=== PATIENT | female | born 1935 | race Caucasian/White ===

== ENCOUNTER → 2016-07-09 | Outpatient (CLI) | payer MEDICARE, OTHER ==
[~2016-07-09] MED LIST: AMLO5TAB OR; ASPI325T OR; CALCIUM PO; CORE20CA OR; LIPI80TA OR; MECL25TA2 OR; PLAV75TA2 OR; RANE1000 OR; VIT D PO; centrum PO; vitamin D PO
--- NOTE | 2016-07-09 09:13 | REP ---
MRI lumbosacral spine 07/09/2016 Indication lumbar vertebrae normal freshened fracture Comparison: Bone scan 05/23/2016 only Technique: Sagittal and axial T1 and T2-weighted images as well as STIR sagittal images and coronal localizer images were obtained of the lumbosacral spine without contrast. Findings: 60% compression fracture is noted of T12 with bone marrow edema best visualized within the STIR sagittal images. Mild residual marrow edema is noted in the L1 vertebral body consistent with a less recent/older fracture of 70% compression . T12-L1 small diffuse bulging disc and facet osteoarthritis bilaterally with mild thecal sac impression. L1-2: Small diffuse bulging disc ,facet joint osteoarthritis, and mild thecal sac compression L2-3: Moderate diffuse bulging disc , and facet osteoarthritis with significant thecal sac compression .AP dimension of thecal sac 5.6 mm. L3-4 significant disc space narrowing ,diffuse bulging disc/osteophyte complex. AP dimension of thecal sac 6.5 mm . There is left foraminal narrowing. L4-5: Small diffuse bulging disc/osteophyte complex. There is no significant spinal stenosis. There is facet osteoarthritis without compression of the exiting nerve roots L5 S1 small diffuse bulging disc/osteophyte complex. There is no spinal stenosis or compression of the exiting nerve roots in the neural foramina The conus medullaris terminates at L1-L2 There is mild lower thoracic levoscoliosis and moderate rotatory lumbar dextroscoliosis. Impression 1. Recent 60% compression fracture T12 with marrow edema and no significant retropulsion; 70% subacute to old compression fracture of L1 2. Moderate to significant spinal stenosis at L2-3, and , L3-4 contributed to by bulging discs and facet osteoarthritis. If there is any clinical concern for unstable fractures, then recommend CT of lumbosacral spine Signed by Tamika Sharp MD 07/09/2016 09:05 A
== END ==
LOC: M RAD 07:08
PROVIDERS: ATTEND Nurse Practitioner Family
DX: M48.54XA Collapsed vertebra, not elsewhere classified, thoracic region, initial encounter for fracture (principal); M48.06 Spinal stenosis, lumbar region; M51.26 Other intervertebral disc displacement, lumbar region; M47.816 Spondylosis without myelopathy or radiculopathy, lumbar region; X58.XXXA Exposure to other specified factors, initial encounter; Y93.9 Activity, unspecified; Y92.9 Unspecified place or not applicable; Y99.8 Other external cause status

== ENCOUNTER → 2016-07-28 | Outpatient (CLI) | payer MEDICARE, OTHER ==
[~2016-07-28] MED LIST changes: +BUPIVACAINE HCL 0.25% 30 ML VIAL As Ordered ONE; +ISOVUE-M 300 61% 15ML VIAL (Q9967) As Ordered ONE; +LIDOCAINE 1% SDV INJ 30 ML VIAL As Ordered ONE; +TRIAMCINOLONE ACETONIDE SUSP 40 MG/ML VIAL (J3301) As Ordered ONE; +diazePAM 5 MG TAB As Ordered ONE
--- NOTE | 2016-07-28 12:36 | REP ---
PARTIAL LUMBAR SPINE SERIES: Single view. HISTORY: Lumbar facet injection for pain. 10 seconds of fluoroscopy time is reported. FINDINGS: A single fluoroscopically obtained intraprocedural spot radiograph of the lumbar spine documents needle position and contrast injection associated with lumbar facet injection procedure. Signed by Renato Abernathy MD 07/28/2016 01:43 P
--- NOTE | 2016-07-30 23:56 | ECWPNPC ---
PATIENT NAME: PHYLLIS COOK : 1935 GENDER: FEMALE VISIT DATE: 07/28/2016 DISCHARGE DATE: 07/28/16 1207 VISIT LOCKED DATE TIME: PHYSICIAN: ALINA RICE RESOURCE: ALINA RICE REASON FOR APPOINTMENT 1. FACET BLOCK HISTORY OF PRESENT ILLNESS HISTORY OF PRESENT ILLNESS: PAIN THE PATIENT DESCRIBES THE PAIN... FALL RISK SCREENING: SCREENING :NO FALLS IN THE PAST YEAR CURRENT MEDICATIONS TAKING ASPIRIN 81 MG TABLET DELAYED RELEASE 1 TABLET NEEDED ORALLY DAILY, NOTES: 07-27-161899 TAKING COREG CR 20 MG CAPSULE EXTENDED RELEASE 24 HOUR 1 CAP(S) ORALLY DAILY, NOTES: 07-27-161899 TAKING LIPITOR 80 MG TABLET 1 TABLET ORALLY ONCE A DAY, NOTES: 07-27-161899 TAKING CALCIUM 600 + D 600-400 MG-UNIT TABLET 2 TABLET ORALLY BID, NOTES: 07-27-161899 TAKING VITAMIN D 1000 UNIT TABLET 1 TABLET ORALLY ONCE A DAY, NOTES: 07-27-161899 TAKING IMDUR 60 MG TABLET EXTENDED RELEASE 24 HOUR 1 TABLET ORALLY ONCE A DAY, NOTES: 07-27-162099 TAKING RANEXA 1000 MG TABLET EXTENDED RELEASE 12 HOUR 1 TABLET ORALLY TWICE A DAY, NOTES: 07-27-161899 TAKING PANTOPRAZOLE SODIUM 40 MG TABLET DELAYED RELEASE 1 TABLET ORALLY ONCE A DAY, NOTES: 07-27-161899 TAKING TYLENOL EXTRA STRENGTH 500 MG TABLET 1 TABLET NEEDED ORALLY EVERY 6 HRS, NOTES: NOT IN WHILE TAKING WALKER - MISCELLANEOUS DIRECTED FX L-1 FOLDING TAKING PHYSICAL THERAPY EVALUATE AND TREAT PHYSICAL THERAPY DIRECTED COMP FX L-1 1-3X/WEEK TAKING MIRALAX - PACKET 1 PACKET MIXED WITH 8 OUNCES OF FLUID ORALLY ONCE A DAY NEEDED TAKING TRANSFER BENCH - MISCELLANEOUS DIRECTED SHOWER CHAIR S32.010D TAKING ADJUST BATH/SHOWER SEAT - MISCELLANEOUS DIRECTED SHOWER SEAT S32.010D TAKING SPIRONOLACTONE 25 MG TABLET 1 TABLET ORALLY ONCE A DAY, NOTES: 07-27-16 07 TAKING LYRICA 75 MG CAPSULE 1 CAPSULE ORALLY TWICE A DAY MDD2, NOTES: 07-27-161899 TAKING NORCO 10-325 MG TABLET 1 TABLET NEEDED ORALLY EVERY 6 HRS PRN MDD4, NOTES: 07-28-16 0600 PAST MEDICAL HISTORY VITAMIN D DEFICIENCY ARTHRITIS ENVIRONMENTAL ALLERGIES HYPERTENSION HEART ATTACK, 2006 HX. OF VAIN ,PAPSMEAR ABNORMAL MAMMOGRAM, CAT 3 10/13 ALSO 04/14 OSTEOPENIA ELEVATED CHOLESTEROL RIGHT SHOULDER PROBLEM,2011 GASTRIC ULCER 06/23/2013 TORN ROTATOR CUFF, AFTER A FALL RECTOCELE ,WAS TREATED WITH A PESSARY BUT COULD NOT TOLERATE IT .TIED OA BLADDER MED ,TOO MANY SIDE EFFECTS RIGHT TORN BICEP ALLERGIES N.K.D.A. SOCIAL HISTORY GENERAL: TOBACCO USE ARE YOU A:NONSMOKER LEARNING BARRIERS / SPECIAL NEEDS ORIENTED TO PLAN OF CARE: PATIENT, PAIN MANAGEMENT PATIENT, ORIENTED TO PLAN OF CARE: PATIENT, PAIN MANAGEMENT PATIENT. NEW PATIENT PAIN DIARY TODAY'S VISITNOTES FROM 0-10, WHAT LEVEL IS YOUR PAIN TODAY?0 PAIN CLINIC PFS, CLERGY, PUBLIC HEALTH REFERRALS PFS REFERRAL NEEDED?NO CLERGY REFERRAL NEEDED?NO PUBLIC HEALTH REFERRAL NEEDED?NO WAS THE PROVIDER NOTIFIED OF ANY PERTINENT INFO?NO PFS REFERRAL NEEDED?NO CLERGY REFERRAL NEEDED?NO PUBLIC HEALTH REFERRAL NEEDED?NO WAS THE PROVIDER NOTIFIED OF ANY PERTINENT INFO?NO REVIEW OF SYSTEMS CONSTITUTIONAL: ANY CHANGE IN YOUR MEDICAL CONDITION? NO . CHILLS NO . FEVER NO . INFECTION: DO YOU HAVE NEW INFECTIONS? NO . DO YOU HAVE HISTORY OF MRSA? NO . MUSCULOSKELETAL: ANY NEW PATTERNS OF PAIN OR NUMBNESS? NO . GASTROENTEROLOGY: ANY NEW CHANGE IN BOWEL CONTROL? NO . GENITOURINARY: ANY NEW CHANGE IN BLADDER CONTROL? NO . IS THERE A CHANCE YOU COULD BE ? NO . HEMATOLOGY/LYMPH: DO YOU TAKE ANY BLOOD THINNERS? (FOR EXAMPLE- COUMADIN, PLAVIX, AGGRENOX, PLATEL, PRADAXA, OR XARELTO) NO . WHEN WAS YOUR LAST DOSE? DATE: TIME: . NEUROLOGY: HAVE YOU FALLEN IN THE PAST 6 MONTHS? NO . ANY NEW EXTREMITY NUMBNESS OR WEAKNESS? NO . CARDIOLOGY: DO YOU HAVE A PACEMAKER OR DEFIBRILLATOR? NO . RESPIRATORY: HAVE YOU BEEN SICK IN THE PAST WEEK? NO . FEVER NO . FLU LIKE SYMPTOMS? NO . COUGH NO . INTEGUMENTARY: DO YOU HAVE ANY RASHES OR OPEN SORES? NO . ALLERGIC/IMMUNO: ARE YOU ALLERGIC TO SHELLFISH OR IV DYE? NO . ANY NEW ALLERGIES? NO . PSYCHIATRIC: DO YOU HAVE THOUGHTS OF HURTING YOURSELF OR SOMEONE ELSE? NO . ARE YOU ABUSED, NEGLECTED, OR IN AN UNSAFE ENVIRONMENT? NO . ENDOCRINOLOGY: ARE YOU DIABETIC? NO . OTHER: DO YOU NEED ANY PRESCRIPTIONS? NO . IF YES, PLEASE LIST: ____ . ANY NEW PROBLEMS WITH YOUR MEDICATIONS? NO . WHEN DID YOU LAST EAT? 6PM 07-27-16 . WHEN DID YOU LAST DRINK? 6AM 07-28-16 . WHAT DID YOU LAST DRINK? WATER . NAME OF PERSON DRIVING YOU HOME? ALEXX COOK . DO YOU HAVE ANY OTHER QUESTIONS OR CONCERNS NO . REVIEWED BY: PROVIDER: . VITAL SIGNS WT 115 LBS, HT 61 1/2, BMI 21.37 INDEX, BP 180/82 MANUAL, HR 79 /MIN, RR 16 /MIN, TEMP 96.0 F, OXYGEN SAT % 97, NA INITIALS TL 1016, REVIEWED BY: PSELEVATED BP, RN AWARE- TL. 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 ALINA RICE SENIOR ATTORNEY NONE ANESTHESIA LOCAL PRE PROCEDURE NOTE THE PATIENT HAS A HISTORY OF CHRONIC LOW BACK PAIN. I EVALUATE THE PATIENT AND REVIEWED THE CHART. I WENT OVER THE RISKS, ALTERNATIVES, AND BENEFITS ASSOCIATED WITH THIS PROCEDURE. THE PATIENT WOULD LIKE TO PROCEED AND GIVE CONSENT TO PERFORMED THE PROCEDURE. THE PATIENT DENIES UNEXPLAINABLE WEIGHT LOSS, FEVER, CHILLS, OR NEW CHANGES IN URINARY OR BOWEL CONTROL DESCRIPTION OF PROCEDURE THE PATIENT WAS BROUGHT TO THE PROCEDURE ROOM AND PLACED IN THE PRONE POSITION. THE LUMBOSACRAL AREA WAS CLEANED WITH CHLORAPREP SOLUTION AND DRAPED ASEPTICALLY. THE PROCEDURE WAS DONE UNDER STERILE CONDITIONS. I CHECKED LATERALITY AND THE LEVEL WHERE THE PROCEDURE WAS GOING TO BE PERFORMED WITH THE PATIENT AND THE SUPPORTING STAFF AT THE MOMENT OF THE TIME OUT IN THE PROCEDURE ROOM. UNDER FLUOROSCOPIC GUIDANCE, THE TARGET POINT WAS SELECTED AT THE RIGHT L5-S1 FACET JOINT. TARGET POINT WAS SELECTED AFTER LATERAL ROTATION AND TILT OF THE MAGNIFIER OF THE C-ARM. LIDOCAINE 0.5% WAS USED TO NUMB THE SKIN AND THE SUBCUTANEOUS TISSUE BELOW IT. SPINAL NEEDLES, 22-GAUGE, WERE ADVANCED UNDER FLUOROSCOPIC GUIDANCE AND FOLLOWING PATIENT FEEDBACK UNTIL THE TARGETS WERE TOUCHED. THE POSITION OF THE NEEDLES WAS VERIFIED WITH AP AND LATERAL VIEWS. AFTER PROPER POSITION OF THE NEEDLES WAS ACHIEVED, ISOVUE-M DYE 30% 0.1 ML WAS INJECTED SHOWING ADEQUATE SPREAD OF THE DYE. THEN A SOLUTION OF 1.9 ML OF BUPIVACAINE 0.125% OF KENALOG 10 MG WAS INJECTED AT EACH SITE. THERE WAS NO EVIDENCE OF BLOOD, PARESTHESIA OR CEREBROSPINAL FLUID DURING THE PROCEDURE. THE PATIENT WAS SENT TO THE RECOVERY ROOM. THE PATIENT WAS MOVING THE EXTREMITIES AND DOING WELL. THERE WAS NO COMPLICATION DURING THE PROCEDURE. FLUOROSCOPY TIME WAS 10 SECONDS POST PROCEDURE NOTE THE PATIENT WILL BE SEEN IN A FOLLOW UP IN THE NEXT FEW WEEKS. INSTRUCTIONS WERE GIVEN, QUESTIONS WERE ANSWERED, AND THE PATIENT EXPRESSED UNDERSTANDING AND AGREES WITH THE PLAN. I, JOSH GLOVER, DOCUMENTED THE ABOVE INFORMATION ACTING A SCRIBE FOR DR. RICE. I, DR. RICE, HAVE REVIEWED THE ABOVE DOCUMENT, SCRIBED BY JOSH GLOVER, AND I VERIFY THAT IT IS ACCURATE DIAGNOSTIC IMAGING [facility] FACET BLOCK (PAIN)[id number] PROCEDURE CODES 90007 INJ PARAVERT F JNT L/S 1 LEV 6045F RADXPS IN END [id number] PXD FOLLOW UP 3 WEEKS ELECTRONICALLY SIGNED BY ALINA RICE MD ON 07/30/2016 AT 10:03 PM EST DISCLAIMER : THIS IS A VISIT SUMMARY EXTRACTED FROM THE [employer] CHART. IT IS NOT A COPY OF THE [employer] PROGRESS NOTE. MTDD
== END ==
LOC: M PAIN 10:10
PROVIDERS: ATTEND Anesthesiology
DX: G89.29 Other chronic pain (principal); M47.817 Spondylosis without myelopathy or radiculopathy, lumbosacral region; M54.5 Low back pain; Z79.891 Long term (current) use of opiate analgesic; Z79.82 Long term (current) use of aspirin; Z79.899 Other long term (current) drug therapy
CPT/HCPCS: 64493; J3301; Q9967

== ENCOUNTER → 2016-08-21 | Outpatient (CLI) | payer MEDICARE, OTHER ==
[~2016-08-21] MED LIST changes: -BUPIVACAINE HCL 0.25% 30 ML VIAL As Ordered ONE; -ISOVUE-M 300 61% 15ML VIAL (Q9967) As Ordered ONE; -LIDOCAINE 1% SDV INJ 30 ML VIAL As Ordered ONE; -TRIAMCINOLONE ACETONIDE SUSP 40 MG/ML VIAL (J3301) As Ordered ONE; -diazePAM 5 MG TAB As Ordered ONE
--- NOTE | 2016-08-28 23:59 | ECWPNPC ---
PATIENT NAME: PHYLLIS COOK : 1935 GENDER: FEMALE VISIT DATE: 08/21/2016 DISCHARGE DATE: 08/21/16 1122 VISIT LOCKED DATE TIME: PHYSICIAN: WAQAS DUPREE RESOURCE: WAQAS DUPREE REASON FOR APPOINTMENT 1. BACK HISTORY OF PRESENT ILLNESS HISTORY OF PRESENT ILLNESS: HERE FOR POT PROC. F/U.HAD RIGHT L5/S1 THERAPEUTIC FACET BLOCK ON 07-28-16.REPORTS SIGNIFICANT IMPROVEMENT IN PAIN.RATING PAIN VAS 3/10.PAIN IS LOCATED IN RIGHT LOW BACK AND RADIATES INTO RIGHT HIP.DESCRIBES PAIN CONSTANT.USING LYRICA 75MG BID WHICH SHE FINDS HELPFUL.REPORTS RARE USE OF HYDROCODONE FOR SEVERE PAIN. PAIN THE PATIENT DESCRIBES THE PAIN... FALL RISK SCREENING: SCREENING :NO FALLS IN THE PAST YEAR CURRENT MEDICATIONS TAKING ASPIRIN 81 MG TABLET DELAYED RELEASE 1 TABLET NEEDED ORALLY DAILY TAKING COREG CR 20 MG CAPSULE EXTENDED RELEASE 24 HOUR 1 CAP(S) ORALLY DAILY TAKING LIPITOR 80 MG TABLET 1 TABLET ORALLY ONCE A DAY TAKING CALCIUM 600 + D 600-400 MG-UNIT TABLET 2 TABLET ORALLY BID TAKING VITAMIN D 1000 UNIT TABLET 1 TABLET ORALLY ONCE A DAY TAKING IMDUR 60 MG TABLET EXTENDED RELEASE 24 HOUR 1 TABLET ORALLY ONCE A DAY TAKING RANEXA 1000 MG TABLET EXTENDED RELEASE 12 HOUR 1 TABLET ORALLY TWICE A DAY TAKING PANTOPRAZOLE SODIUM 40 MG TABLET DELAYED RELEASE 1 TABLET ORALLY ONCE A DAY TAKING WALKER - MISCELLANEOUS DIRECTED FX L-1 FOLDING TAKING PHYSICAL THERAPY EVALUATE AND TREAT PHYSICAL THERAPY DIRECTED COMP FX L-1 1-3X/WEEK TAKING MIRALAX - PACKET 1 PACKET MIXED WITH 8 OUNCES OF FLUID ORALLY ONCE A DAY NEEDED TAKING TRANSFER BENCH - MISCELLANEOUS DIRECTED SHOWER CHAIR S32.010D TAKING ADJUST BATH/SHOWER SEAT - MISCELLANEOUS DIRECTED SHOWER SEAT S32.010D TAKING SPIRONOLACTONE 25 MG TABLET 1 TABLET ORALLY ONCE A DAY TAKING NORCO 10-325 MG TABLET 1 TABLET NEEDED ORALLY EVERY 6 HRS PRN MDD4 TAKING LYRICA 75 MG CAPSULE 1 CAPSULE ORALLY TWICE A DAY MDD2 NOT-TAKING TYLENOL EXTRA STRENGTH 500 MG TABLET 1 TABLET NEEDED ORALLY EVERY 6 HRS MEDICATION LIST REVIEWED AND RECONCILED WITH THE PATIENT PAST MEDICAL HISTORY VITAMIN D DEFICIENCY ARTHRITIS ENVIRONMENTAL ALLERGIES HYPERTENSION HEART ATTACK, 2006 HX. OF VAIN ,PAPSMEAR ABNORMAL MAMMOGRAM, CAT 3 10/13 ALSO 04/14 OSTEOPENIA ELEVATED CHOLESTEROL RIGHT SHOULDER PROBLEM,2011 GASTRIC ULCER 06/23/2013 TORN ROTATOR CUFF, AFTER A FALL RECTOCELE ,WAS TREATED WITH A PESSARY BUT COULD NOT TOLERATE IT .TIED OA BLADDER MED ,TOO MANY SIDE EFFECTS RIGHT TORN BICEP ALLERGIES N.K.D.A. SOCIAL HISTORY GENERAL: TOBACCO USE ARE YOU A:NONSMOKER LEARNING BARRIERS / SPECIAL NEEDS ORIENTED TO PLAN OF CARE: PATIENT, PAIN MANAGEMENT PATIENT, ORIENTED TO PLAN OF CARE: PATIENT, PAIN MANAGEMENT PATIENT. NEW PATIENT PAIN DIARY TODAY'S VISITNOTES FROM 0-10, WHAT LEVEL IS YOUR PAIN TODAY?0 PAIN CLINIC PFS, CLERGY, PUBLIC HEALTH REFERRALS PFS REFERRAL NEEDED?NO CLERGY REFERRAL NEEDED?NO PUBLIC HEALTH REFERRAL NEEDED?NO WAS THE PROVIDER NOTIFIED OF ANY PERTINENT INFO?NO PFS REFERRAL NEEDED?NO CLERGY REFERRAL NEEDED?NO PUBLIC HEALTH REFERRAL NEEDED?NO WAS THE PROVIDER NOTIFIED OF ANY PERTINENT INFO?NO REVIEW OF SYSTEMS CONSTITUTIONAL: ANY CHANGE IN YOUR MEDICAL CONDITION? NO . RECENT ILLNESS DENIES . CHILLS NO . FEVER NO . WEIGHT LOSS DENIES . INFECTION: DO YOU HAVE NEW INFECTIONS? NO . DO YOU HAVE HISTORY OF MRSA? NO . MUSCULOSKELETAL: ANY NEW PATTERNS OF PAIN OR NUMBNESS? NO . GASTROENTEROLOGY: ANY NEW CHANGE IN BOWEL CONTROL? NO . GENITOURINARY: ANY NEW CHANGE IN BLADDER CONTROL? NO . IS THERE A CHANCE YOU COULD BE ? NO . HEMATOLOGY/LYMPH: DO YOU TAKE ANY BLOOD THINNERS? (FOR EXAMPLE- COUMADIN, PLAVIX, AGGRENOX, PLATEL, PRADAXA, OR XARELTO) NO . WHEN WAS YOUR LAST DOSE? DATE: TIME: . NEUROLOGY: HAVE YOU FALLEN IN THE PAST 6 MONTHS? NO . ANY NEW EXTREMITY NUMBNESS OR WEAKNESS? NO . CARDIOLOGY: DO YOU HAVE A PACEMAKER OR DEFIBRILLATOR? NO . CHEST PAIN DENIES . SHORTNESS OF BREATH DENIES . RESPIRATORY: HAVE YOU BEEN SICK IN THE PAST WEEK? NO . FEVER NO . FLU LIKE SYMPTOMS? NO . COUGH NO, DENIES . SHORTNESS OF BREATH DENIES . INTEGUMENTARY: DO YOU HAVE ANY RASHES OR OPEN SORES? NO . ALLERGIC/IMMUNO: ARE YOU ALLERGIC TO SHELLFISH OR IV DYE? NO . ANY NEW ALLERGIES? NO . PSYCHIATRIC: DO YOU HAVE THOUGHTS OF HURTING YOURSELF OR SOMEONE ELSE? NO . ARE YOU ABUSED, NEGLECTED, OR IN AN UNSAFE ENVIRONMENT? NO . ENDOCRINOLOGY: ARE YOU DIABETIC? NO . OTHER: DO YOU NEED ANY PRESCRIPTIONS? NO . IF YES, PLEASE LIST: ____ . ANY NEW PROBLEMS WITH YOUR MEDICATIONS? NO . WHEN DID YOU LAST EAT? ____ . WHEN DID YOU LAST DRINK? ____ . WHAT DID YOU LAST DRINK? ____ . NAME OF PERSON DRIVING YOU HOME? ____ . DO YOU HAVE ANY OTHER QUESTIONS OR CONCERNS NO . REVIEWED BY: PROVIDER: WAQAS JOINER . VITAL SIGNS WT 112.8 LBS, HT 61 1/2, BMI 20.97 INDEX, BP 146/89 MM HG, HR 67 /MIN, RR 16 /MIN, TEMP 96.7 F, OXYGEN SAT % 99, NA INITIALS TL 1018, REVIEWED BY: AD. EXAMINATION GENERAL EXAMINATION: LUNGS:LUNG SOUNDS ARE CLEAR. HEART:HEART RATE REGULAR. MUSCULOSKELETAL:*, MUSCLE STRENGTH TESTING 5/5 BILATERAL LOWER EXTREMITIES. PALPATION: NEGATIVE FOR PAIN OVER L/S SPINE. NEGATIVE FOR PAIN OVER L/S PARASPINALS.. 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 NEUROPATHIC PAIN - M79.2 TREATMENT COMPRESSION FRACTURE OF L1 LUMBAR VERTEBRA, SEQUELA REFILL NORCO TABLET, 10-325 MG, 1 TABLET NEEDED, ORALLY, Q12H PRN MDD2, 30 DAY(S), 60, REFILLS 0 REFILL LYRICA CAPSULE, 75 MG, 1 CAPSULE, ORALLY, TWICE A DAY MDD2, 90 DAY(S), 180, REFILLS 1 PROCEDURE CODES FA211 ESTABILISHED PATIENT [facility] FACILITY CHARGE G8730 PAIN ASSESS POS TOOL F/U PLAN DOC G8427 DOC MEDS VERIFIED W/PT OR RE DISPOSITION & COMMUNICATION FOLLOW UP 2 MONTHS ELECTRONICALLY SIGNED BY RHYS POSADAS ON 08/28/2016 AT 10:18 AM EST DISCLAIMER : THIS IS A VISIT SUMMARY EXTRACTED FROM THE [employer] CHART. IT IS NOT A COPY OF THE [employer] PROGRESS NOTE. MTDD
== END ==
LOC: M PAIN 10:00
PROVIDERS: ATTEND Nurse Practitioner Family
DX: Z09 Encounter for follow-up examination after completed treatment for conditions other than malignant neoplasm (principal); S32.010S Wedge compression fracture of first lumbar vertebra, sequela; M79.2 Neuralgia and neuritis, unspecified; Z79.82 Long term (current) use of aspirin; Z79.891 Long term (current) use of opiate analgesic; Z79.899 Other long term (current) drug therapy; M54.5 Low back pain; E55.9 Vitamin D deficiency, unspecified; M19.90 Unspecified osteoarthritis, unspecified site; I10 Essential (primary) hypertension; M85.80 Other specified disorders of bone density and structure, unspecified site; E78.5 Hyperlipidemia, unspecified; Z86.79 Personal history of other diseases of the circulatory system; Z87.19 Personal history of other diseases of the digestive system

== ENCOUNTER → 2016-10-20 | Outpatient (CLI) | payer MEDICARE, OTHER ==
--- NOTE | 2016-11-01 00:57 | ECWPNPC ---
PATIENT NAME: PHYLLIS COOK : 1935 GENDER: FEMALE VISIT DATE: 10/20/2016 DISCHARGE DATE: 10/20/16 1113 VISIT LOCKED DATE TIME: PHYSICIAN: WAQAS DUPREE RESOURCE: WAQAS DUPREE REASON FOR APPOINTMENT 1. BACK HISTORY OF PRESENT ILLNESS HISTORY OF PRESENT ILLNESS: HERE FOR POST PROC. F/U.HAD RIGHT L5/S1 THERAPEUTIC FACET BLOCK ON 07-28-16.REPORTS SIGNIFICANT IMPROVEMENT IN PAIN.RATING PAIN VAS 3/10.PAIN IS LOCATED IN RIGHT LOW BACK AND RADIATES INTO RIGHT HIP.DESCRIBES PAIN CONSTANT.USING LYRICA 75MG BID WHICH SHE FINDS HELPFUL.REPORTS RARE USE OF HYDROCODONE FOR SEVERE PAIN. PAIN THE PATIENT DESCRIBES THE PAIN... THE PATIENT DESCRIBES THE PAIN... FALL RISK SCREENING: SCREENING :NO FALLS IN THE PAST YEAR CURRENT MEDICATIONS TAKING ASPIRIN 81 MG TABLET DELAYED RELEASE 1 TABLET NEEDED ORALLY DAILY TAKING COREG CR 20 MG CAPSULE EXTENDED RELEASE 24 HOUR 1 CAP(S) ORALLY DAILY TAKING LIPITOR 80 MG TABLET 1 TABLET ORALLY ONCE A DAY TAKING CALCIUM 600 + D 600-400 MG-UNIT TABLET 2 TABLET ORALLY BID TAKING VITAMIN D 1000 UNIT TABLET 1 TABLET ORALLY ONCE A DAY TAKING IMDUR 60 MG TABLET EXTENDED RELEASE 24 HOUR 1 TABLET ORALLY ONCE A DAY TAKING RANEXA 1000 MG TABLET EXTENDED RELEASE 12 HOUR 1 TABLET ORALLY TWICE A DAY TAKING PANTOPRAZOLE SODIUM 40 MG TABLET DELAYED RELEASE 1 TABLET ORALLY ONCE A DAY TAKING WALKER - MISCELLANEOUS DIRECTED FX L-1 FOLDING TAKING PHYSICAL THERAPY EVALUATE AND TREAT PHYSICAL THERAPY DIRECTED COMP FX L-1 1-3X/WEEK TAKING MIRALAX - PACKET 1 PACKET MIXED WITH 8 OUNCES OF FLUID ORALLY ONCE A DAY NEEDED TAKING TRANSFER BENCH - MISCELLANEOUS DIRECTED SHOWER CHAIR S32.010D TAKING ADJUST BATH/SHOWER SEAT - MISCELLANEOUS DIRECTED SHOWER SEAT S32.010D TAKING SPIRONOLACTONE 25 MG TABLET 1 TABLET ORALLY ONCE A DAY TAKING LYRICA 75 MG CAPSULE 1 CAPSULE ORALLY TWICE A DAY MDD2 TAKING NORCO 10-325 MG TABLET 1 TABLET NEEDED ORALLY Q12H PRN MDD2 3 MOS. SUPPLY CAT. D CHRONIC PAIN NOT-TAKING TYLENOL EXTRA STRENGTH 500 MG TABLET 1 TABLET NEEDED ORALLY EVERY 6 HRS PAST MEDICAL HISTORY VITAMIN D DEFICIENCY ARTHRITIS ENVIRONMENTAL ALLERGIES HYPERTENSION HEART ATTACK, 2006 HX. OF VAIN ,PAPSMEAR ABNORMAL MAMMOGRAM, CAT 3 10/13 ALSO 04/14 OSTEOPENIA ELEVATED CHOLESTEROL RIGHT SHOULDER PROBLEM,2011 GASTRIC ULCER 06/23/2013 TORN ROTATOR CUFF, AFTER A FALL RECTOCELE ,WAS TREATED WITH A PESSARY BUT COULD NOT TOLERATE IT .TIED OA BLADDER MED ,TOO MANY SIDE EFFECTS RIGHT TORN BICEP SOCIAL HISTORY GENERAL: PAIN CLINIC PFS, CLERGY, PUBLIC HEALTH REFERRALS CLERGY REFERRAL NEEDED?NO WAS THE PROVIDER NOTIFIED OF ANY PERTINENT INFO?NO PFS REFERRAL NEEDED?NO PUBLIC HEALTH REFERRAL NEEDED?NO PATIENT: ____. REVIEW OF SYSTEMS CONSTITUTIONAL: ANY CHANGE IN YOUR MEDICAL CONDITION? NO . CHILLS NO . FEVER NO . INFECTION: DO YOU HAVE NEW INFECTIONS? NO . DO YOU HAVE HISTORY OF MRSA? NO . MUSCULOSKELETAL: ANY NEW PATTERNS OF PAIN OR NUMBNESS? NO . GASTROENTEROLOGY: ANY NEW CHANGE IN BOWEL CONTROL? NO . GENITOURINARY: ANY NEW CHANGE IN BLADDER CONTROL? NO . IS THERE A CHANCE YOU COULD BE ? NO . HEMATOLOGY/LYMPH: DO YOU TAKE ANY BLOOD THINNERS? (FOR EXAMPLE- COUMADIN, PLAVIX, AGGRENOX, PLATEL, PRADAXA, OR XARELTO) NO . WHEN WAS YOUR LAST DOSE? DATE: TIME: . NEUROLOGY: HAVE YOU FALLEN IN THE PAST 6 MONTHS? NO . ANY NEW EXTREMITY NUMBNESS OR WEAKNESS? NO . CARDIOLOGY: DO YOU HAVE A PACEMAKER OR DEFIBRILLATOR? NO . RESPIRATORY: HAVE YOU BEEN SICK IN THE PAST WEEK? NO . FEVER NO . FLU LIKE SYMPTOMS? NO . COUGH NO . INTEGUMENTARY: DO YOU HAVE ANY RASHES OR OPEN SORES? NO . ALLERGIC/IMMUNO: ARE YOU ALLERGIC TO SHELLFISH OR IV DYE? NO . ANY NEW ALLERGIES? NO . PSYCHIATRIC: DO YOU HAVE THOUGHTS OF HURTING YOURSELF OR SOMEONE ELSE? NO . ARE YOU ABUSED, NEGLECTED, OR IN AN UNSAFE ENVIRONMENT? NO . ENDOCRINOLOGY: ARE YOU DIABETIC? NO . OTHER: DO YOU NEED ANY PRESCRIPTIONS? NO . IF YES, PLEASE LIST: ____ . ANY NEW PROBLEMS WITH YOUR MEDICATIONS? NO . WHEN DID YOU LAST EAT? ____ . WHEN DID YOU LAST DRINK? ____ . WHAT DID YOU LAST DRINK? ____ . NAME OF PERSON DRIVING YOU HOME? ____ . DO YOU HAVE ANY OTHER QUESTIONS OR CONCERNS NO . REVIEWED BY: PROVIDER: WAQAS DUPREE CARD GRADER . VITAL SIGNS WT 110.2 LBS, HT 61 1/2, BMI 20.48 INDEX, BP 180/77 MM HG, HR 72 /MIN, RR 16 /MIN, TEMP 98.0 F, OXYGEN SAT % 96%, NA INITIALS AW 1022. EXAMINATION GENERAL EXAMINATION: LUNGS:LUNG SOUNDS ARE CLEAR. HEART:HEART RATE REGULAR. MUSCULOSKELETAL:*, MUSCLE STRENGTH TESTING 5/5 BILATERAL LOWER EXTREMITIES. PALPATION: NEGATIVE FOR PAIN OVER L/S SPINE. NEGATIVE FOR PAIN OVER L/S PARASPINALS.. 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 SUPPLY CAT. D CHRONIC PAIN NOTES: ISTOP REGISTRY REVIEWED AND DEMNOSTRATES COMPLLIANCE. BRINGS IN MEDICATIONS WHICH IS APPROPRIATE FOR WHAT WAS DISPENSED. RECENT URINE TOXICOLOGY REVIEWED. NO UNAUTHORIZED MEDICATIONS. NO ILLICIT SUBSTANCES AND PRESCRIBED MEDICATIONS WERE PRESENT. , RISKS AND BENEFITS OF NARCOTIC/OPIOD MEDICATIONS WERE REVIEWED WITH PATIENT - THIS INCLUDES BUT IS NOT LIMITED TO RISK OF DEPENDANCE/DEVELOPMENT OF ADDICTION, MOOD DISTURBANCE AND DEPRESSION, OSTEOPOROSIS, HORMONAL AND LABIDAL CHANGES, RESPIRATORY DEPRESSION AND . PATIENT IS ADVISED NOT TO DRIVE WHILE ON THESE MEDICATIONS. PROCEDURE CODES FA211 ESTABILISHED PATIENT [facility] FACILITY CHARGE G8730 PAIN ASSESS POS TOOL F/U PLAN DOC G8427 DOC MEDS VERIFIED W/PT OR RE DISPOSITION & COMMUNICATION FOLLOW UP 2 MONTHS ELECTRONICALLY SIGNED BY RHYS POSADAS ON 10/31/2016 AT 01:14 PM EDT DISCLAIMER : THIS IS A VISIT SUMMARY EXTRACTED FROM THE [employer] CHART. IT IS NOT A COPY OF THE [employer] PROGRESS NOTE. RAFAEL
== END ==
LOC: M PAIN 10:20
PROVIDERS: ATTEND Nurse Practitioner Family
DX: G89.29 Other chronic pain (principal); S32.010S Wedge compression fracture of first lumbar vertebra, sequela; M43.07 Spondylolysis, lumbosacral region; E55.9 Vitamin D deficiency, unspecified; M19.90 Unspecified osteoarthritis, unspecified site; I10 Essential (primary) hypertension; M85.80 Other specified disorders of bone density and structure, unspecified site; E78.00 Pure hypercholesterolemia, unspecified; Z79.899 Other long term (current) drug therapy; Z86.79 Personal history of other diseases of the circulatory system; X58.XXXS Exposure to other specified factors, sequela; Y99.8 Other external cause status; Y92.9 Unspecified place or not applicable; Y93.9 Activity, unspecified

== ENCOUNTER → 2016-12-18 | Outpatient (CLI) | payer MEDICARE, OTHER ==
--- NOTE | 2016-12-19 02:21 | ECWPNPC ---
PATIENT NAME: PHYLLIS COOK : 1935 GENDER: FEMALE VISIT DATE: 12/18/2016 DISCHARGE DATE: 12/18/16 1122 VISIT LOCKED DATE TIME: PHYSICIAN: WAQAS DUPREE RESOURCE: WAQAS DUPREE REASON FOR APPOINTMENT 1. BACK PAIN 2 MO HISTORY OF PRESENT ILLNESS HISTORY OF PRESENT ILLNESS: HERE FOR F/U AND MANAGEMENT OF CHRONIC LBP/RIGHT THIGH PAIN.RATING PAIN VAS 3/10.HAD RIGHT LUMBAR THERAPEUTIC FACET BLOCK IN JULY AND DOES FEEL IT IS HELPING SHE WAS A 5/10 BEFORE SHOT.ASKING FOR MORE HYDROCODONE.SHE IS TAKING HYDROCODONE 10/325 THREE TAB PER DAY AND HAS RUN OUT EARLY.DISCUSSED MY CONCERNS WITH DAILY NARCOTIC PAIN MEDICINE USE AND ALSO CONCERNS REGARDING INCREASED RISK FOR FALL INJURIES. IS PRESENT IN ROOM.DISCUSSED OPTIONS FOR PAIN CONTROL OTHER THAN OPIODS.DISCUSSED SIJ INJECTION.DISCUSSED USE OF TYLENOL MIDDAY. PAIN THE PATIENT DESCRIBES THE PAIN... FALL RISK SCREENING: SCREENING :NO FALLS IN THE PAST YEAR CURRENT MEDICATIONS TAKING ASPIRIN 81 MG TABLET DELAYED RELEASE 1 TABLET NEEDED ORALLY DAILY TAKING COREG CR 20 MG CAPSULE EXTENDED RELEASE 24 HOUR 1 CAP(S) ORALLY DAILY TAKING LIPITOR 80 MG TABLET 1 TABLET ORALLY ONCE A DAY TAKING CALCIUM 600 + D 600-400 MG-UNIT TABLET 2 TABLET ORALLY BID TAKING VITAMIN D 1000 UNIT TABLET 1 TABLET ORALLY ONCE A DAY TAKING IMDUR 60 MG TABLET EXTENDED RELEASE 24 HOUR 1 TABLET ORALLY ONCE A DAY TAKING RANEXA 1000 MG TABLET EXTENDED RELEASE 12 HOUR 1 TABLET ORALLY TWICE A DAY TAKING PANTOPRAZOLE SODIUM 40 MG TABLET DELAYED RELEASE 1 TABLET ORALLY ONCE A DAY TAKING WALKER - MISCELLANEOUS DIRECTED FX L-1 FOLDING TAKING MIRALAX - PACKET 1 PACKET MIXED WITH 8 OUNCES OF FLUID ORALLY ONCE A DAY NEEDED TAKING TRANSFER BENCH - MISCELLANEOUS DIRECTED SHOWER CHAIR S32.010D TAKING ADJUST BATH/SHOWER SEAT - MISCELLANEOUS DIRECTED SHOWER SEAT S32.010D TAKING SPIRONOLACTONE 25 MG TABLET 1 TABLET ORALLY ONCE A DAY TAKING LYRICA 75 MG CAPSULE 1 CAPSULE ORALLY TWICE A DAY MDD2 TAKING AMOXICILLIN 500 MG CAPSULE 1 CAPSULE ORALLY EVERY 8 HOURS TAKING NORCO 10-325 MG TABLET 1 TABLET NEEDED ORALLY Q12H PRN MDD2 3 MOS. SUPPLY CAT. D CHRONIC PAIN TAKING NITROSTAT 0.4 MG TABLET SUBLINGUAL SUBLINGUAL NEEDED MEDICATION LIST REVIEWED AND RECONCILED WITH THE PATIENT PAST MEDICAL HISTORY VITAMIN D DEFICIENCY ARTHRITIS ENVIRONMENTAL ALLERGIES HYPERTENSION HEART ATTACK, 2006 HX. OF VAIN ,PAPSMEAR ABNORMAL MAMMOGRAM, CAT 3 10/13 ALSO 04/14 OSTEOPENIA ELEVATED CHOLESTEROL RIGHT SHOULDER PROBLEM,2011 GASTRIC ULCER 06/23/2013 TORN ROTATOR CUFF, AFTER A FALL RECTOCELE ,WAS TREATED WITH A PESSARY BUT COULD NOT TOLERATE IT .TIED OA BLADDER MED ,TOO MANY SIDE EFFECTS RIGHT TORN BICEP ALLERGIES N.K.D.A. SOCIAL HISTORY GENERAL: TOBACCO USE ARE YOU A:NONSMOKER ALCOHOL SCREENING DID YOU HAVE A DRINK CONTAINING ALCOHOL IN THE PAST YEAR?NO POINTS0 INTERPRETATIONNEGATIVE RECREATIONAL DRUG USE DRUG USE?NO HIV / HEP-C SCREENING HIV TEST OFFERED TO PATIENT:NO AGE HEP-C TEST OFFERED TO PATIENT:NO AGE LEARNING BARRIERS / SPECIAL NEEDS CHANGE FROM LAST VISIT?NO BARRIERS TO LEARNING?NO HEARING IMPAIRED?NO VISION IMPAIRED?YES COGNITIVELY IMPAIRED?NO :CORRECTIVE LENSES READINESS TO LEARN?YES LEARNING PREFERENCES?NO LEARNING CAPABILITIES PRESENT?YES EMOTIONAL BARRIERS?NO SPECIAL DEVICES?YES :CANE [place] BLOCKMAKER NEEDED?NO PAIN CLINIC PFS, CLERGY, PUBLIC HEALTH REFERRALS PFS REFERRAL NEEDED?NO CLERGY REFERRAL NEEDED?NO PUBLIC HEALTH REFERRAL NEEDED?NO HAS THE PATIENT BEEN EDUCATED REGARDING HIS/HER PLAN OF CARE?YES HAS THE PATIENT BEEN EDUCATED REGARDING PAIN, THE RISK FOR PAIN, THE IMPORTANCE OF EFFECTIVE PAIN MANAGEMENT, AND THE PAIN ASSESSMENT PROCESS?YES PATIENT: ____. DENIES SMOKING OR STREET DRUGS. DRINKS APPROXIMATELY 3-4 GLASSES OF WINE PER MONTH, OBDULIO EDMONDS. REVIEW OF SYSTEMS CONSTITUTIONAL: ANY CHANGE IN YOUR MEDICAL CONDITION? NO . CHILLS NO . FEVER NO . INFECTION: DO YOU HAVE NEW INFECTIONS? NO . DO YOU HAVE HISTORY OF MRSA? NO . MUSCULOSKELETAL: ANY NEW PATTERNS OF PAIN OR NUMBNESS? NO . GASTROENTEROLOGY: ANY NEW CHANGE IN BOWEL CONTROL? NO . GENITOURINARY: ANY NEW CHANGE IN BLADDER CONTROL? NO . IS THERE A CHANCE YOU COULD BE ? NO . HEMATOLOGY/LYMPH: DO YOU TAKE ANY BLOOD THINNERS? (FOR EXAMPLE- COUMADIN, PLAVIX, AGGRENOX, PLATEL, PRADAXA, OR XARELTO) NO . WHEN WAS YOUR LAST DOSE? DATE: TIME: . NEUROLOGY: HAVE YOU FALLEN IN THE PAST 6 MONTHS? NO . ANY NEW EXTREMITY NUMBNESS OR WEAKNESS? NO . CARDIOLOGY: DO YOU HAVE A PACEMAKER OR DEFIBRILLATOR? NO . RESPIRATORY: HAVE YOU BEEN SICK IN THE PAST WEEK? NO . FEVER NO . FLU LIKE SYMPTOMS? NO . COUGH NO . INTEGUMENTARY: DO YOU HAVE ANY RASHES OR OPEN SORES? NO . ALLERGIC/IMMUNO: ARE YOU ALLERGIC TO SHELLFISH OR IV DYE? NO . ANY NEW ALLERGIES? NO . PSYCHIATRIC: DO YOU HAVE THOUGHTS OF HURTING YOURSELF OR SOMEONE ELSE? NO . ARE YOU ABUSED, NEGLECTED, OR IN AN UNSAFE ENVIRONMENT? NO . ENDOCRINOLOGY: ARE YOU DIABETIC? NO . OTHER: DO YOU NEED ANY PRESCRIPTIONS? YES . IF YES, PLEASE LIST: HYDROCODONE . ANY NEW PROBLEMS WITH YOUR MEDICATIONS? NO . WHEN DID YOU LAST EAT? ____ . WHEN DID YOU LAST DRINK? ____ . WHAT DID YOU LAST DRINK? ____ . NAME OF PERSON DRIVING YOU HOME? ____ . DO YOU HAVE ANY OTHER QUESTIONS OR CONCERNS NO . REVIEWED BY: PROVIDER: WAQAS JOINER . VITAL SIGNS WT 109.6 LBS, HT 61 1/2, BMI 20.37 INDEX, BP 153/73 MM HG, HR 67 /MIN, RR 16 /MIN, TEMP 97.7 F, OXYGEN SAT % 97%, NA INITIALS SC 10:30, REVIEWED BY: CS. EXAMINATION GENERAL EXAMINATION: LUNGS:LUNG SOUNDS ARE CLEAR. HEART:HEART RATE REGULAR. MUSCULOSKELETAL:*, MUSCLE STRENGTH TESTING 5/5 BILATERAL LOWER EXTREMITIES. PALPATION: NEGATIVE FOR PAIN OVER L/S SPINE. SPECIFIC POINT TENDERNESS RIGHT SIJ. DIAGNOSTIC DATA-MRI L/S [id number]-REVIEWED. ASSESSMENTS LUMBOSACRAL SPONDYLOLYSIS - M43.07 (PRIMARY) CHRONIC PRESCRIPTION OPIATE USE - Z79.891 SACROILIAC JOINT PAIN - M53.3 TREATMENT LUMBOSACRAL SPONDYLOLYSIS INCREASE LYRICA CAPSULE, 100 MG, 1 CAPSULE, ORALLY, BID MDD2 THREE MOS. SUPPLY CAT. D CHRONIC PAIN, 90 DAY(S), 180, REFILLS 0 REFILL NORCO TABLET, 10-325 MG, 1 TABLET NEEDED, ORALLY, Q12H PRN MDD2 3 MOS. SUPPLY CAT. D CHRONIC PAIN, 90 DAY(S), 180, REFILLS 0 NOTES: RIGHT SIJ. PREVENTIVE MEDICINE PAIN CLINIC TEACHING: MEDICATIONS INCREASE LYRICA. PROCEDURE TEACHING SACROILIAC JOINT INJECTION TEACHING DONE. PROCEDURE CODES FA211 ESTABILISHED PATIENT [facility] FACILITY CHARGE G8730 PAIN ASSESS POS TOOL F/U PLAN DOC G8427 DOC MEDS VERIFIED W/PT OR RE DISPOSITION & COMMUNICATION FOLLOW UP 2WK POST (REASON: RIGHT SIJ) ELECTRONICALLY SIGNED BY RHYS POSADAS ON 12/18/2016 AT 03:36 PM EDT DISCLAIMER : THIS IS A VISIT SUMMARY EXTRACTED FROM THE [email or web address] CHART. IT IS NOT A COPY OF THE [email or web address] PROGRESS NOTE. RAFAEL
== END ==
LOC: M PAIN 10:20
PROVIDERS: ATTEND Nurse Practitioner Family
DX: G89.29 Other chronic pain (principal); M43.07 Spondylolysis, lumbosacral region; M53.3 Sacrococcygeal disorders, not elsewhere classified; M79.651 Pain in right thigh; E55.9 Vitamin D deficiency, unspecified; M19.90 Unspecified osteoarthritis, unspecified site; J30.2 Other seasonal allergic rhinitis; I10 Essential (primary) hypertension; I25.2 Old myocardial infarction; M85.80 Other specified disorders of bone density and structure, unspecified site; E78.00 Pure hypercholesterolemia, unspecified; Z79.82 Long term (current) use of aspirin; Z79.891 Long term (current) use of opiate analgesic; Z79.899 Other long term (current) drug therapy

== ENCOUNTER → 2017-01-01 | Outpatient (CLI) | payer MEDICARE, OTHER ==
[~2017-01-01] MED LIST changes: +BUPIVACAINE HCL 0.25% 30 ML VIAL As Ordered ONE; +ISOVUE-M 300 61% 15ML VIAL (Q9967) As Ordered ONE; +LIDOCAINE 1% SDV INJ 30 ML VIAL As Ordered ONE; +TRIAMCINOLONE ACETONIDE SUSP 40 MG/ML VIAL (J3301) As Ordered ONE; +diazePAM 5 MG TAB As Ordered ONE
--- NOTE | 2017-01-01 14:22 | REP ---
SI JOINT SERIES: Two views. HISTORY: Low back pain. Injection procedure. Findings: A sequence of two last image hold fluoroscopic spot radiographs of the SI joints document needle position and contrast injection associated with injection procedure. Signed by Renato Abernathy MD 01/01/2017 03:34 P
--- NOTE | 2017-01-06 23:12 | ECWPNPC ---
PATIENT NAME: PHYLLIS COOK : 1935 GENDER: FEMALE VISIT DATE: 01/01/2017 DISCHARGE DATE: 01/01/17 1313 VISIT LOCKED DATE TIME: PHYSICIAN: ALINA RICE RESOURCE: ALINA RICE REASON FOR APPOINTMENT 1. SIJ HISTORY OF PRESENT ILLNESS HISTORY OF PRESENT ILLNESS: PAIN THE PATIENT DESCRIBES THE PAIN... FALL RISK SCREENING: SCREENING :NO FALLS IN THE PAST YEAR CURRENT MEDICATIONS TAKING ASPIRIN 81 MG TABLET DELAYED RELEASE 1 TABLET NEEDED ORALLY DAILY, NOTES: 01/01/17 0700A TAKING COREG CR 20 MG CAPSULE EXTENDED RELEASE 24 HOUR 1 CAP(S) ORALLY DAILY, NOTES: 01/01/17 0700 TAKING LIPITOR 80 MG TABLET 1 TABLET ORALLY ONCE A DAY, NOTES: 12/31/16 2100 TAKING CALCIUM 600 + D 600-400 MG-UNIT TABLET 2 TABLET ORALLY BID, NOTES: 12/31/16 1800 TAKING VITAMIN D 1000 UNIT TABLET 1 TABLET ORALLY ONCE A DAY, NOTES: 12/31/16 06 TAKING IMDUR 60 MG TABLET EXTENDED RELEASE 24 HOUR 1 TABLET ORALLY ONCE A DAY, NOTES: 12/31/16 1900 TAKING RANEXA 1000 MG TABLET EXTENDED RELEASE 12 HOUR 1 TABLET ORALLY TWICE A DAY, NOTES: 01/01/17 06 TAKING PANTOPRAZOLE SODIUM 40 MG TABLET DELAYED RELEASE 1 TABLET ORALLY ONCE A DAY, NOTES: 01/01/17 06 TAKING WALKER - MISCELLANEOUS DIRECTED FX L-1 FOLDING, NOTES: N/A TAKING MIRALAX - PACKET 1 PACKET MIXED WITH 8 OUNCES OF FLUID ORALLY ONCE A DAY NEEDED, NOTES: MONTHS AGO TAKING TRANSFER BENCH - MISCELLANEOUS DIRECTED SHOWER CHAIR S32.010D, NOTES: N/A TAKING ADJUST BATH/SHOWER SEAT - MISCELLANEOUS DIRECTED SHOWER SEAT S32.010D, NOTES: N/A TAKING SPIRONOLACTONE 25 MG TABLET 1 TABLET ORALLY ONCE A DAY, NOTES: 12/31/16 06 TAKING NITROSTAT 0.4 MG TABLET SUBLINGUAL SUBLINGUAL NEEDED, NOTES: MONTHS AGO TAKING LYRICA 100 MG CAPSULE 1 CAPSULE ORALLY BID MDD2 THREE MOS. SUPPLY CAT. D CHRONIC PAIN, NOTES: 01/01/17 06 TAKING NORCO 10-325 MG TABLET 1 TABLET NEEDED ORALLY Q12H PRN MDD2 3 MOS. SUPPLY CAT. D CHRONIC PAIN, NOTES: 01/01/17 0600 NOT-TAKING AMOXICILLIN 500 MG CAPSULE 1 CAPSULE ORALLY EVERY 8 HOURS MEDICATION LIST REVIEWED AND RECONCILED WITH THE PATIENT PAST MEDICAL HISTORY VITAMIN D DEFICIENCY ARTHRITIS ENVIRONMENTAL ALLERGIES HYPERTENSION HEART ATTACK, 2007 HX. OF VAIN ,PAPSMEAR ABNORMAL MAMMOGRAM, CAT 3 10/13 ALSO 04/14 OSTEOPENIA ELEVATED CHOLESTEROL RIGHT SHOULDER PROBLEM,2011 GASTRIC ULCER 06/23/2013 TORN ROTATOR CUFF, AFTER A FALL RECTOCELE ,WAS TREATED WITH A PESSARY BUT COULD NOT TOLERATE IT .TIED OA BLADDER MED ,TOO MANY SIDE EFFECTS RIGHT TORN BICEP ALLERGIES N.K.D.A. SURGICAL HISTORY BLADDER SUSPENSION/UTERUS SUSPENSION 1964 HYSTERECTOMY 1965 LAMINECTOMY 1977 BACK SURGERY 1998 SIGMOIDOSCOPY/PROCTOSCOPY 2000 RECTAL PROLAPSE SURGERY 2001 CABG 4 VESSELS 2008 CARDIAC CATH WITH 4 STENTS 2006 CARDIAC CATHS 9 TIMES WITH STENTS HOSPITALIZATION/MAJOR DIAGNOSTIC PROCEDURE SEE ABOVE SURGICAL HX REVIEW OF SYSTEMS REVIEWED BY: PROVIDER: . CONSTITUTIONAL: ANY CHANGE IN YOUR MEDICAL CONDITION? NO . CHILLS NO . FEVER NO . INFECTION: DO YOU HAVE NEW INFECTIONS? NO . DO YOU HAVE HISTORY OF MRSA? NO . MUSCULOSKELETAL: ANY NEW PATTERNS OF PAIN OR NUMBNESS? NO . GASTROENTEROLOGY: ANY NEW CHANGE IN BOWEL CONTROL? NO . GENITOURINARY: ANY NEW CHANGE IN BLADDER CONTROL? NO . IS THERE A CHANCE YOU COULD BE ? NO . HEMATOLOGY/LYMPH: DO YOU TAKE ANY BLOOD THINNERS? (FOR EXAMPLE- COUMADIN, PLAVIX, AGGRENOX, PLATEL, PRADAXA, OR XARELTO) NO . WHEN WAS YOUR LAST DOSE? DATE: TIME: . NEUROLOGY: HAVE YOU FALLEN IN THE PAST 6 MONTHS? NO . ANY NEW EXTREMITY NUMBNESS OR WEAKNESS? NO . CARDIOLOGY: DO YOU HAVE A PACEMAKER OR DEFIBRILLATOR? NO . RESPIRATORY: HAVE YOU BEEN SICK IN THE PAST WEEK? NO . FEVER NO . FLU LIKE SYMPTOMS? NO . COUGH NO . INTEGUMENTARY: DO YOU HAVE ANY RASHES OR OPEN SORES? NO . ALLERGIC/IMMUNO: ARE YOU ALLERGIC TO SHELLFISH OR IV DYE? NO . ANY NEW ALLERGIES? NO . PSYCHIATRIC: DO YOU HAVE THOUGHTS OF HURTING YOURSELF OR SOMEONE ELSE? NO . ARE YOU ABUSED, NEGLECTED, OR IN AN UNSAFE ENVIRONMENT? NO . ENDOCRINOLOGY: ARE YOU DIABETIC? NO . OTHER: DO YOU NEED ANY PRESCRIPTIONS? NO . IF YES, PLEASE LIST: ____ . ANY NEW PROBLEMS WITH YOUR MEDICATIONS? NO . WHEN DID YOU LAST EAT? 12/31/16 1800 . WHEN DID YOU LAST DRINK? 01/01/17 0600 . WHAT DID YOU LAST DRINK? WATER . NAME OF PERSON DRIVING YOU HOME? ALEXX COOK . DO YOU HAVE ANY OTHER QUESTIONS OR CONCERNS NO . VITAL SIGNS WT 110 LBS, HT 61 1/2, BMI 20.45 INDEX, BP 162/87 MM HG, HR 68 /MIN, RR 16 /MIN, TEMP 98.3 F, OXYGEN SAT % 99%, NA INITIALS SC 11:00. ASSESSMENTS SACROILIITIS, NOT ELSEWHERE CLASSIFIED - M46.1 (PRIMARY) PROCEDURES PN SI PRE PROCEDURE DIAGNOSIS SACROILIITIS, SACROILIAC JOINT DYSFUNCTION POST PROCEDURE DIAGNOSIS SACROILIITIS, SACROILIAC JOINT DYSFUNCTION PROCEDURE BILATERAL SACROILIAC JOINT BLOCK SURGEON DR. ALINA RICE PROJECT MANAGEMENT IT SPECIALIST NONE ANESTHESIA LOCAL PRE PROCEDURE NOTE PATIENT WITH HISTORY OF CHRONIC LOW BACK PAIN. I EVALUATED THE PATIENT AND REVIEWED THE CHART. I WENT OVER THE RISKS, ALTERNATIVES, AND BENEFITS ASSOCIATED WITH THIS PROCEDURE. THE PATIENT WOULD LIKE TO PROCEED AND GAVE CONSENT TO PERFORM THE PROCEDURE. THE PATIENT DENIES UNEXPLAINABLE WEIGHT LOSS, FEVER, CHILLS, OR NEW CHANGES IN URINARY OR BOWEL CONTROL DESCRIPTION OF PROCEDURE THE PATIENT WAS BROUGHT TO THE PROCEDURE ROOM AND PLACED IN THE PRONE POSITION. THE LUMBOSACRAL AREA WAS CLEANED WITH CHLORAPREP SOLUTION AND DRAPED ASEPTICALLY. THE PROCEDURE WAS DONE UNDER STERILE CONDITIONS. I CHECKED LATERALITY AND THE LEVEL WHERE THE PROCEDURE WAS GOING TO BE PERFORMED WITH THE PATIENT AND THE SUPPORTING STAFF AT THE MOMENT OF THE TIME OUT IN THE PROCEDURE ROOM. UNDER FLUOROSCOPIC GUIDANCE, TARGET POINT WAS SELECTED AT THE LOWER BORDER OF THE RIGHT AND LEFT SACROILIAC JOINT. TARGET POINT WAS SELECTED AFTER MEDIAL ROTATION AND TILT OF THE MAGNIFIER OF THE C-ARM. LIDOCAINE WAS USED TO NUMB THE SKIN AND SUBCUTANEOUS TISSUE BELOW IT. A SPINAL NEEDLE, 22-GAUGE, WAS ADVANCED UNDER FLUOROSCOPIC GUIDANCE AND FOLLOWING PATIENT FEEDBACK UNTIL THE TARGET AREA WAS TOUCHED. THE POSITION OF THE NEEDLE WAS VERIFIED WITH AP AND LATERAL VIEWS. AFTER PROPER POSITION OF THE NEEDLE WAS ACHIEVED, ISOVUE M DYE 30%, 0.25 ML, WAS INJECTED SHOWING SPREAD OF THE DYE. THEN, A SOLUTION OF 20 MG OF KENALOG WAS INJECTED IN RIGHT JOINT WITH 3 ML OF BUPIVACAINE 0.125%. THERE WAS NO EVIDENCE OF BLOOD, PARESTHESIA OR CEREBROSPINAL FLUID DURING THE PROCEDURE. THE PATIENT WAS SENT TO THE RECOVERY ROOM. THE PATIENT WAS MOVING THE EXTREMITIES AND DOING WELL. THERE WAS NO COMPLICATION DURING THE PROCEDURE. FLUOROSCOPY TIME WAS 21 SECONDS POST PROCEDURE NOTE THE PATIENT WILL BE SEEN IN A FOLLOW UP IN THE NEXT FEW WEEKS. INSTRUCTIONS WERE GIVEN, QUESTIONS WERE ANSWERED, AND THE PATIENT EXPRESSED UNDERSTANDING AND AGREED WITH THE PLAN. I, LIDIA VELAZCO, DOCUMENTED THE ABOVE INFORMATION ACTING A SCRIBE FOR DR. RICE. I HAVE REVIEWED THE ABOVE DOCUMENT, WRITTEN BY LIDIA VELAZCO SCRIBE AND I VERIFY THAT IT IS [facility] FLUORO GUIDANCE (PAIN)[id number] PROCEDURE CODES 62980 INJECT SACROILIAC JOINT 6045F RADXPS IN END [id number] PXD DISPOSITION & COMMUNICATION FOLLOW UP 3 WEEKS ELECTRONICALLY SIGNED BY ALINA RICE MD ON 01/06/2017 AT 09:52 PM EDT DISCLAIMER : THIS IS A VISIT SUMMARY EXTRACTED FROM THE [employer] CHART. IT IS NOT A COPY OF THE [employer] PROGRESS NOTE. RAFAEL
== END ==
LOC: M PAIN 11:00
PROVIDERS: ATTEND Anesthesiology
DX: G89.29 Other chronic pain (principal); M46.1 Sacroiliitis, not elsewhere classified; M53.88 Other specified dorsopathies, sacral and sacrococcygeal region; E55.9 Vitamin D deficiency, unspecified; M19.90 Unspecified osteoarthritis, unspecified site; J30.89 Other allergic rhinitis; I10 Essential (primary) hypertension; M85.80 Other specified disorders of bone density and structure, unspecified site; E78.00 Pure hypercholesterolemia, unspecified; Z95.5 Presence of coronary angioplasty implant and graft; Z79.82 Long term (current) use of aspirin; Z79.899 Other long term (current) drug therapy
CPT/HCPCS: G0260; J3301; Q9967

== ENCOUNTER → 2017-01-15 | Outpatient (CLI) | payer MEDICARE, OTHER ==
[~2017-01-15] MED LIST changes: -BUPIVACAINE HCL 0.25% 30 ML VIAL As Ordered ONE; -ISOVUE-M 300 61% 15ML VIAL (Q9967) As Ordered ONE; -LIDOCAINE 1% SDV INJ 30 ML VIAL As Ordered ONE; -TRIAMCINOLONE ACETONIDE SUSP 40 MG/ML VIAL (J3301) As Ordered ONE; -diazePAM 5 MG TAB As Ordered ONE
--- NOTE | 2017-01-15 23:46 | ECWPNPC ---
PATIENT NAME: PHYLLIS COOK : 1935 GENDER: FEMALE VISIT DATE: 01/15/2017 DISCHARGE DATE: 01/15/17 1051 VISIT LOCKED DATE TIME: PHYSICIAN: WAQAS DUPREE RESOURCE: WAQAS DUPREE REASON FOR APPOINTMENT 1. POST SIJ HISTORY OF PRESENT ILLNESS HISTORY OF PRESENT ILLNESS: HERE FOR POST PROCEDURE F/U.HAD BILATERAL SIJ ON 01-01-17. OF CHRONIC LBP/RIGHT THIGH PAIN.RATING PAIN VAS 2/10.HAD RIGHT LUMBAR THERAPEUTIC FACET BLOCK IN JULY AND DOES FEEL IT IS HELPING SHE WAS A 5/10 BEFORE SHOT.ASKING FOR MORE HYDROCODONE.SHE IS TAKING HYDROCODONE 10/325 Q12H PRN FOR SEVERE PAIN THAT IS HELPFUL. PAIN THE PATIENT DESCRIBES THE PAIN... THE PATIENT DESCRIBES THE PAIN... FALL RISK SCREENING: SCREENING :NO FALLS IN THE PAST YEAR CURRENT MEDICATIONS TAKING ASPIRIN 81 MG TABLET DELAYED RELEASE 1 TABLET NEEDED ORALLY DAILY TAKING COREG CR 20 MG CAPSULE EXTENDED RELEASE 24 HOUR 1 CAP(S) ORALLY DAILY TAKING LIPITOR 80 MG TABLET 1 TABLET ORALLY ONCE A DAY TAKING CALCIUM 600 + D 600-400 MG-UNIT TABLET 2 TABLET ORALLY BID TAKING VITAMIN D 1000 UNIT TABLET 1 TABLET ORALLY ONCE A DAY TAKING IMDUR 60 MG TABLET EXTENDED RELEASE 24 HOUR 1 TABLET ORALLY ONCE A DAY TAKING RANEXA 1000 MG TABLET EXTENDED RELEASE 12 HOUR 1 TABLET ORALLY TWICE A DAY TAKING PANTOPRAZOLE SODIUM 40 MG TABLET DELAYED RELEASE 1 TABLET ORALLY ONCE A DAY TAKING WALKER - MISCELLANEOUS DIRECTED FX L-1 FOLDING, NOTES: N/A TAKING MIRALAX - PACKET 1 PACKET MIXED WITH 8 OUNCES OF FLUID ORALLY ONCE A DAY NEEDED, NOTES: MONTHS AGO TAKING TRANSFER BENCH - MISCELLANEOUS DIRECTED SHOWER CHAIR S32.010D, NOTES: N/A TAKING ADJUST BATH/SHOWER SEAT - MISCELLANEOUS DIRECTED SHOWER SEAT S32.010D, NOTES: N/A TAKING SPIRONOLACTONE 25 MG TABLET 1 TABLET ORALLY ONCE A DAY TAKING NITROSTAT 0.4 MG TABLET SUBLINGUAL SUBLINGUAL NEEDED, NOTES: MONTHS AGO TAKING LYRICA 100 MG CAPSULE 1 CAPSULE ORALLY BID MDD2 THREE MOS. SUPPLY CAT. D CHRONIC PAIN TAKING NORCO 10-325 MG TABLET 1 TABLET NEEDED ORALLY Q12H PRN MDD2 3 MOS. SUPPLY CAT. D CHRONIC PAIN NOT-TAKING AMOXICILLIN 500 MG CAPSULE 1 CAPSULE ORALLY EVERY 8 HOURS MEDICATION LIST REVIEWED AND RECONCILED WITH THE PATIENT PAST MEDICAL HISTORY VITAMIN D DEFICIENCY ARTHRITIS ENVIRONMENTAL ALLERGIES HYPERTENSION HEART ATTACK, 2007 HX. OF VAIN ,PAPSMEAR ABNORMAL MAMMOGRAM, CAT 3 10/13 ALSO 04/14 OSTEOPENIA ELEVATED CHOLESTEROL RIGHT SHOULDER PROBLEM,2011 GASTRIC ULCER 06/23/2013 TORN ROTATOR CUFF, AFTER A FALL RECTOCELE ,WAS TREATED WITH A PESSARY BUT COULD NOT TOLERATE IT .TIED OA BLADDER MED ,TOO MANY SIDE EFFECTS RIGHT TORN BICEP ALLERGIES N.K.D.A. SURGICAL HISTORY BLADDER SUSPENSION/UTERUS SUSPENSION 1964 HYSTERECTOMY 1965 LAMINECTOMY 1977 BACK SURGERY 1998 SIGMOIDOSCOPY/PROCTOSCOPY 2001 RECTAL PROLAPSE SURGERY 2002 CABG 4 VESSELS 2008 CARDIAC CATH WITH 4 STENTS 2007 CARDIAC CATHS 9 TIMES WITH STENTS HOSPITALIZATION/MAJOR DIAGNOSTIC PROCEDURE SEE ABOVE SURGICAL HX REVIEW OF SYSTEMS REVIEWED BY: PROVIDER: WAQAS JOINER . CONSTITUTIONAL: ANY CHANGE IN YOUR MEDICAL CONDITION? NO . CHILLS NO . FEVER NO . INFECTION: DO YOU HAVE NEW INFECTIONS? NO . DO YOU HAVE HISTORY OF MRSA? NO . MUSCULOSKELETAL: ANY NEW PATTERNS OF PAIN OR NUMBNESS? NO . GASTROENTEROLOGY: ANY NEW CHANGE IN BOWEL CONTROL? NO . GENITOURINARY: ANY NEW CHANGE IN BLADDER CONTROL? NO . IS THERE A CHANCE YOU COULD BE ? NO . HEMATOLOGY/LYMPH: DO YOU TAKE ANY BLOOD THINNERS? (FOR EXAMPLE- COUMADIN, PLAVIX, AGGRENOX, PLATEL, PRADAXA, OR XARELTO) NO . WHEN WAS YOUR LAST DOSE? DATE: TIME: . NEUROLOGY: HAVE YOU FALLEN IN THE PAST 6 MONTHS? NO . ANY NEW EXTREMITY NUMBNESS OR WEAKNESS? NO . CARDIOLOGY: DO YOU HAVE A PACEMAKER OR DEFIBRILLATOR? NO . RESPIRATORY: HAVE YOU BEEN SICK IN THE PAST WEEK? NO . FEVER NO . FLU LIKE SYMPTOMS? NO . COUGH NO . INTEGUMENTARY: DO YOU HAVE ANY RASHES OR OPEN SORES? NO . ALLERGIC/IMMUNO: ARE YOU ALLERGIC TO SHELLFISH OR IV DYE? NO . ANY NEW ALLERGIES? NO . PSYCHIATRIC: DO YOU HAVE THOUGHTS OF HURTING YOURSELF OR SOMEONE ELSE? NO . ARE YOU ABUSED, NEGLECTED, OR IN AN UNSAFE ENVIRONMENT? NO . ENDOCRINOLOGY: ARE YOU DIABETIC? NO . OTHER: DO YOU NEED ANY PRESCRIPTIONS? NO . IF YES, PLEASE LIST: ____ . ANY NEW PROBLEMS WITH YOUR MEDICATIONS? NO . WHEN DID YOU LAST EAT? ____ . WHEN DID YOU LAST DRINK? ____ . WHAT DID YOU LAST DRINK? ____ . NAME OF PERSON DRIVING YOU HOME? ____ . DO YOU HAVE ANY OTHER QUESTIONS OR CONCERNS NO . VITAL SIGNS WT 110 LBS, HT 61 1/2, BMI 20.45 INDEX, BP 148/93 MM HG, HR 69 /MIN, RR 18 /MIN, TEMP 98.3 F, OXYGEN SAT % 98, SAFE IN ENV? (Y/N) Y, REVIEWED BY: EM. 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 SUPPLY CAT. D CHRONIC PAIN NOTES: FALLS CARE PLAN: 1. RECOMMEND REMOVING ALL THROW RUGS. 2. RECOMMEND NIGHT LIGHTS 3. RECOMMEND WEARING RUBBER SOLED SHOES AND TO NOT GO BAREFOOT. 4.. ADVISED TO CHANGE POSITION SLOWLY FROM SUPINE TO STANDING TO AVOID DIZZINESS. 5. ADVISED TO USE ASSISTIVE DEVICE SUCH CANE OR WALKER 6. USE LIFELINE SERVICES OR KEEP PORTABLE PHONE READILY AVAILABLE, ISTOP REGISTRY REVIEWED AND DEMNOSTRATES COMPLLIANCE. BRINGS IN MEDICATIONS WHICH IS APPROPRIATE FOR WHAT WAS DISPENSED. RECENT URINE TOXICOLOGY REVIEWED. NO UNAUTHORIZED MEDICATIONS. NO ILLICIT SUBSTANCES AND PRESCRIBED MEDICATIONS WERE PRESENT. , RISKS AND BENEFITS OF NARCOTIC/OPIOD MEDICATIONS WERE REVIEWED WITH PATIENT - THIS INCLUDES BUT IS NOT LIMITED TO RISK OF DEPENDANCE/DEVELOPMENT OF ADDICTION, MOOD DISTURBANCE AND DEPRESSION, OSTEOPOROSIS, HORMONAL AND LABIDAL CHANGES, RESPIRATORY DEPRESSION AND . PATIENT IS ADVISED NOT TO DRIVE WHILE ON THESE MEDICATIONS. PROCEDURE CODES FA211 ESTABILISHED PATIENT [facility] CHARGE T5953 PAIN ASSESS POS TOOL F/U PLAN DOC V6919 DOC MEDS VERIFIED W/PT OR RE J1186 BP SCR PRFRM RCMDD DEFIND SCR INTVL 3016F PT SCRND UNHLTHY [place] USE 1123F ACP DISCUSS/DSCN MKR DOCD 1036F TOBACCO NON-USER 0518F FALL PLAN OF CARE DOCD G8420 BMI<30 AND >=22 CALC & DOCU 3288F FALL RISK ASSESSMENT DOCD DISPOSITION & COMMUNICATION FOLLOW UP 2 MONTHS ELECTRONICALLY SIGNED BY RHYS POSADAS ON 01/15/2017 AT 11:43 AM EDT DISCLAIMER : THIS IS A VISIT SUMMARY EXTRACTED FROM THE [employer] CHART. IT IS NOT A COPY OF THE [employer] PROGRESS NOTE. RAFAEL
== END ==
LOC: M PAIN 09:40
PROVIDERS: ATTEND Nurse Practitioner Family
DX: G89.29 Other chronic pain (principal); M43.07 Spondylolysis, lumbosacral region; M53.3 Sacrococcygeal disorders, not elsewhere classified; E55.9 Vitamin D deficiency, unspecified; M19.90 Unspecified osteoarthritis, unspecified site; J30.89 Other allergic rhinitis; I10 Essential (primary) hypertension; I25.2 Old myocardial infarction; M85.80 Other specified disorders of bone density and structure, unspecified site; E78.00 Pure hypercholesterolemia, unspecified; Z79.82 Long term (current) use of aspirin; Z79.899 Other long term (current) drug therapy

== ENCOUNTER → 2017-03-27 | Outpatient (CLI) | payer MEDICARE, OTHER ==
--- NOTE | 2017-04-19 23:55 | ECWPNPC ---
PATIENT NAME: PHYLLIS COOK : 1935 GENDER: FEMALE VISIT DATE: 03/27/2017 DISCHARGE DATE: 03/27/17 1139 VISIT LOCKED DATE TIME: PHYSICIAN: WAQAS DUPREE RESOURCE: WAQAS DUPREE REASON FOR APPOINTMENT 1. BACK HISTORY OF PRESENT ILLNESS HISTORY OF PRESENT ILLNESS: HERE FOR OF CHRONIC LBP/RIGHT THIGH PAIN.RATING PAIN VAS 2/10. ASKING FOR MORE HYDROCODONE.SHE IS TAKING HYDROCODONE 10/325 Q12H PRN FOR SEVERE PAIN AND LYRICA 100MG BID.REPORTS THAT MEDICINE IS HELPFUL.INFORMED HER AND HER THAT I DO NOT WANT HER TO TAKE HYDROCODONE EVERY DAY ON A SCHEDULE.IM CONCERNED FOR HER INCREASED RISK OF FALL INJURY TAKING A NARCOTIC PAIN MEDICATION. VOICES CONCERN .DESCRIBES LOW BACK AND HIP PAIN CONSTANT,SHARP AND TENDER. PAIN THE PATIENT DESCRIBES THE PAIN... THE PATIENT DESCRIBES THE PAIN... THE PATIENT DESCRIBES THE PAIN... FALL RISK SCREENING: SCREENING :NO FALLS IN THE PAST YEAR CURRENT MEDICATIONS TAKING ASPIRIN 81 MG TABLET DELAYED RELEASE 1 TABLET NEEDED ORALLY DAILY TAKING COREG CR 20 MG CAPSULE EXTENDED RELEASE 24 HOUR 1 CAP(S) ORALLY DAILY TAKING LIPITOR 80 MG TABLET 1 TABLET ORALLY ONCE A DAY TAKING CALCIUM 600 + D 600-400 MG-UNIT TABLET 2 TABLET ORALLY BID TAKING VITAMIN D 1000 UNIT TABLET 1 TABLET ORALLY ONCE A DAY TAKING IMDUR 60 MG TABLET EXTENDED RELEASE 24 HOUR 1 TABLET ORALLY ONCE A DAY TAKING RANEXA 1000 MG TABLET EXTENDED RELEASE 12 HOUR 1 TABLET ORALLY TWICE A DAY TAKING PANTOPRAZOLE SODIUM 40 MG TABLET DELAYED RELEASE 1 TABLET ORALLY ONCE A DAY TAKING WALKER - MISCELLANEOUS DIRECTED FX L-1 FOLDING, NOTES: N/A TAKING MIRALAX - PACKET 1 PACKET MIXED WITH 8 OUNCES OF FLUID ORALLY ONCE A DAY NEEDED, NOTES: MONTHS AGO TAKING TRANSFER BENCH - MISCELLANEOUS DIRECTED SHOWER CHAIR S32.010D, NOTES: N/A TAKING ADJUST BATH/SHOWER SEAT - MISCELLANEOUS DIRECTED SHOWER SEAT S32.010D, NOTES: N/A TAKING SPIRONOLACTONE 25 MG TABLET 1 TABLET ORALLY ONCE A DAY TAKING NITROSTAT 0.4 MG TABLET SUBLINGUAL SUBLINGUAL NEEDED, NOTES: MONTHS AGO TAKING LYRICA 100 MG CAPSULE 1 CAPSULE ORALLY BID MDD2 THREE MOS. SUPPLY CAT. D CHRONIC PAIN TAKING NORCO 10-325 MG TABLET 1 TABLET NEEDED ORALLY Q12H PRN MDD2 3 MOS. SUPPLY CAT. D CHRONIC PAIN MEDICATION LIST REVIEWED AND RECONCILED WITH THE PATIENT PAST MEDICAL HISTORY VITAMIN D DEFICIENCY ARTHRITIS ENVIRONMENTAL ALLERGIES HYPERTENSION HEART ATTACK, 2007 HX. OF VAIN ,PAPSMEAR ABNORMAL MAMMOGRAM, CAT 3 10/13 ALSO 04/14 OSTEOPENIA ELEVATED CHOLESTEROL RIGHT SHOULDER PROBLEM,2011 GASTRIC ULCER 06/23/2013 TORN ROTATOR CUFF, AFTER A FALL RECTOCELE ,WAS TREATED WITH A PESSARY BUT COULD NOT TOLERATE IT .TIED OA BLADDER MED ,TOO MANY SIDE EFFECTS RIGHT TORN BICEP ALLERGIES NO[ALLERGIES VERIFIED] REVIEW OF SYSTEMS REVIEWED BY: PROVIDER: WAQAS JOINER . CONSTITUTIONAL: ANY CHANGE IN YOUR MEDICAL CONDITION? NO . CHILLS NO . FEVER NO . INFECTION: DO YOU HAVE NEW INFECTIONS? NO . DO YOU HAVE HISTORY OF MRSA? NO . MUSCULOSKELETAL: ANY NEW PATTERNS OF PAIN OR NUMBNESS? NO . GASTROENTEROLOGY: ANY NEW CHANGE IN BOWEL CONTROL? NO . GENITOURINARY: ANY NEW CHANGE IN BLADDER CONTROL? NO . IS THERE A CHANCE YOU COULD BE ? NO . HEMATOLOGY/LYMPH: DO YOU TAKE ANY BLOOD THINNERS? (FOR EXAMPLE- COUMADIN, PLAVIX, AGGRENOX, PLATEL, PRADAXA, OR XARELTO) NO . WHEN WAS YOUR LAST DOSE? DATE: TIME: . NEUROLOGY: HAVE YOU FALLEN IN THE PAST 6 MONTHS? NO . ANY NEW EXTREMITY NUMBNESS OR WEAKNESS? NO . CARDIOLOGY: DO YOU HAVE A PACEMAKER OR DEFIBRILLATOR? NO . RESPIRATORY: HAVE YOU BEEN SICK IN THE PAST WEEK? NO . FEVER NO . FLU LIKE SYMPTOMS? NO . COUGH NO . INTEGUMENTARY: DO YOU HAVE ANY RASHES OR OPEN SORES? NO . ALLERGIC/IMMUNO: ARE YOU ALLERGIC TO SHELLFISH OR IV DYE? NO . ANY NEW ALLERGIES? NO . PSYCHIATRIC: DO YOU HAVE THOUGHTS OF HURTING YOURSELF OR SOMEONE ELSE? NO . ARE YOU ABUSED, NEGLECTED, OR IN AN UNSAFE ENVIRONMENT? NO . ENDOCRINOLOGY: ARE YOU DIABETIC? NO . OTHER: DO YOU NEED ANY PRESCRIPTIONS? YES . IF YES, PLEASE LIST: LYRICA, HYDROCODONE . ANY NEW PROBLEMS WITH YOUR MEDICATIONS? NO . WHEN DID YOU LAST EAT? ____ . WHEN DID YOU LAST DRINK? ____ . WHAT DID YOU LAST DRINK? ____ . NAME OF PERSON DRIVING YOU HOME? ____ . DO YOU HAVE ANY OTHER QUESTIONS OR CONCERNS SOMETIMES SHE NEEDS 3 HYDROCODONE PER DAY / WANTS TO TALK TO WAQAS ABOUT THAT . VITAL SIGNS WT 112 LBS, HT 61 1/2, BMI 20.82 INDEX, BP 164/91 MM HG, HR 72 /MIN, RR 18 /MIN, TEMP 97.2 F, OXYGEN SAT % 97%, NA INITIALS SC 11:18, REVIEWED BY: NLPT STATES BP ALWAYS HIGH WHEN SHE SEES US. EXAMINATION GENERAL EXAMINATION: LUNGS:LUNG SOUNDS ARE CLEAR. HEART:HEART RATE REGULAR. MUSCULOSKELETAL:*, MUSCLE STRENGTH TESTING 5/5 BILATERAL LOWER EXTREMITIES. PALPATION: NEGATIVE FOR PAIN OVER L/S SPINE. SPECIFIC POINT TENDERNESS RIGHT SIJ. DIAGNOSTIC DATA-MRI L/S [id number]-REVIEWED. 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 SUPPLY CAT. D CHRONIC PAIN, 30 DAY(S), 180, REFILLS 0 REFILL NORCO TABLET, 10-325 MG, 1 TABLET NEEDED, ORALLY, Q12H PRN MDD2 3 MOS. SUPPLY CAT. D CHRONIC PAIN, 90 DAY(S), 180, REFILLS 0 NOTES: RISKS AND BENEFITS OF NARCOTIC/OPIOD MEDICATIONS WERE REVIEWED WITH PATIENT - THIS INCLUDES BUT IS NOT LIMITED TO RISK OF DEPENDANCE/DEVELOPMENT OF ADDICTION, MOOD DISTURBANCE AND DEPRESSION, OSTEOPOROSIS, HORMONAL AND LABIDAL CHANGES, RESPIRATORY DEPRESSION AND . PATIENT IS ADVISED NOT TO DRIVE WHILE ON THESE MEDICATIONS, ISTOP REGISTRY REVIEWED [id number] AND DEMNOSTRATES COMPLLIANCE. BRINGS IN MEDICATIONS WHICH IS APPROPRIATE FOR WHAT WAS DISPENSED. RECENT URINE TOXICOLOGY REVIEWED. NO UNAUTHORIZED MEDICATIONS. NO ILLICIT SUBSTANCES AND PRESCRIBED MEDICATIONS WERE PRESENT. PROCEDURE CODES FA211 ESTABILISHED PATIENT [facility] CHARGE G8730 PAIN ASSESS POS TOOL F/U PLAN DOC G8427 DOC MEDS VERIFIED W/PT OR RE DISPOSITION & COMMUNICATION FOLLOW UP 3 MONTHS ELECTRONICALLY SIGNED BY RHYS POSADAS ON 04/19/2017 AT 06:48 PM EDT DISCLAIMER : THIS IS A VISIT SUMMARY EXTRACTED FROM THE [employer] CHART. IT IS NOT A COPY OF THE [employer] PROGRESS NOTE. MTDD
== END ==
LOC: M PAIN 11:00
PROVIDERS: ATTEND Nurse Practitioner Family
DX: G89.29 Other chronic pain (principal); M43.07 Spondylolysis, lumbosacral region; M53.3 Sacrococcygeal disorders, not elsewhere classified; I10 Essential (primary) hypertension; E78.00 Pure hypercholesterolemia, unspecified; E55.9 Vitamin D deficiency, unspecified; J30.89 Other allergic rhinitis; M81.8 Other osteoporosis without current pathological fracture; Z79.82 Long term (current) use of aspirin; Z79.899 Other long term (current) drug therapy

== ENCOUNTER → 2017-06-26 | Outpatient (CLI) | payer MEDICARE, OTHER | LOC: M PAIN 10:30 | DX: G89.29 Other chronic pain (principal); M43.07 Spondylolysis, lumbosacral region; E55.9 Vitamin D deficiency, unspecified; M19.90 Unspecified osteoarthritis, unspecified site; J30.89 Other allergic rhinitis; I10 Essential (primary) hypertension; M85.80 Other specified disorders of bone density and structure, unspecified site; E78.00 Pure hypercholesterolemia, unspecified; Z79.891 Long term (current) use of opiate analgesic; Z79.82 Long term (current) use of aspirin; Z79.899 Other long term (current) drug therapy; Z86.79 Personal history of other diseases of the circulatory system | CPT/HCPCS: G0463 ==

== ENCOUNTER → 2017-07-20 | Outpatient (CLI) | payer MEDICARE, OTHER ==
[~2017-07-20] MED LIST changes: -AMLO5TAB OR; -ASPI325T OR; +BUPIVACAINE HCL 0.25% 30 ML VIAL As Ordered; -CALCIUM PO; -CORE20CA OR; +ISOVUE-M 300 61% 15ML VIAL (Q9967) As Ordered; +LIDOCAINE 1% SDV INJ 30 ML VIAL As Ordered; -LIPI80TA OR; -MECL25TA2 OR; -PLAV75TA2 OR; -RANE1000 OR; +TRIAMCINOLONE ACETONIDE SUSP 40 MG/ML VIAL (J3301) As Ordered; -VIT D PO; -centrum PO; +diazePAM 5 MG TAB As Ordered; -vitamin D PO
== END ==
LOC: M PAIN 10:00
DX: G89.29 Other chronic pain (principal); M47.816 Spondylosis without myelopathy or radiculopathy, lumbar region; M19.90 Unspecified osteoarthritis, unspecified site; I10 Essential (primary) hypertension; J30.89 Other allergic rhinitis; M85.80 Other specified disorders of bone density and structure, unspecified site; E78.00 Pure hypercholesterolemia, unspecified; Z79.82 Long term (current) use of aspirin; Z79.899 Other long term (current) drug therapy; Z86.79 Personal history of other diseases of the circulatory system
CPT/HCPCS: J3301

== ENCOUNTER → 2017-07-31 | Outpatient (CLI) | payer MEDICARE, OTHER | LOC: M WHC 08:59 | DX: Z12.31 Encounter for screening mammogram for malignant neoplasm of breast (principal); Z12.72 Encounter for screening for malignant neoplasm of vagina; Z12.12 Encounter for screening for malignant neoplasm of rectum | CPT/HCPCS: 77067; G0123 ==

== ENCOUNTER → 2017-07-31 | Outpatient (REF) | payer MEDICARE, OTHER | LOC: M SFHCWAGY 10:04 | DX: Z12.72 Encounter for screening for malignant neoplasm of vagina (principal) | CPT/HCPCS: G0123 ==

== ENCOUNTER → 2017-08-06 | Outpatient (CLI) | payer MEDICARE, OTHER | LOC: M PAIN 10:30 | DX: G89.29 Other chronic pain (principal); M43.07 Spondylolysis, lumbosacral region; E55.9 Vitamin D deficiency, unspecified; M19.90 Unspecified osteoarthritis, unspecified site; J30.9 Allergic rhinitis, unspecified; I10 Essential (primary) hypertension; I25.2 Old myocardial infarction; M85.80 Other specified disorders of bone density and structure, unspecified site; E78.00 Pure hypercholesterolemia, unspecified; Z79.891 Long term (current) use of opiate analgesic; Z79.899 Other long term (current) drug therapy; Z95.1 Presence of aortocoronary bypass graft | CPT/HCPCS: G0463 ==

== ENCOUNTER → 2017-10-05 | Outpatient (CLI) | payer MEDICARE, OTHER | LOC: M PAIN 10:45 | DX: M43.07 Spondylolysis, lumbosacral region (principal); E55.9 Vitamin D deficiency, unspecified; M19.90 Unspecified osteoarthritis, unspecified site; J30.89 Other allergic rhinitis; I10 Essential (primary) hypertension; E78.00 Pure hypercholesterolemia, unspecified; K44.9 Diaphragmatic hernia without obstruction or gangrene; Z79.82 Long term (current) use of aspirin; Z79.891 Long term (current) use of opiate analgesic; Z79.899 Other long term (current) drug therapy; Z86.79 Personal history of other diseases of the circulatory system | CPT/HCPCS: G0463 ==

== ENCOUNTER → 2018-01-08 | Outpatient (CLI) | payer MEDICARE, OTHER | LOC: M PAIN 10:45 | DX: M43.07 Spondylolysis, lumbosacral region (principal); G89.29 Other chronic pain; E55.9 Vitamin D deficiency, unspecified; M19.90 Unspecified osteoarthritis, unspecified site; J30.9 Allergic rhinitis, unspecified; I10 Essential (primary) hypertension; M85.80 Other specified disorders of bone density and structure, unspecified site; E78.00 Pure hypercholesterolemia, unspecified; K44.9 Diaphragmatic hernia without obstruction or gangrene; Z79.82 Long term (current) use of aspirin; Z79.891 Long term (current) use of opiate analgesic; Z79.899 Other long term (current) drug therapy; Z86.79 Personal history of other diseases of the circulatory system | CPT/HCPCS: G0463 ==

== ENCOUNTER → 2018-02-01 | Outpatient (CLI) | payer MEDICARE, OTHER ==
[~2018-02-01] MED LIST changes: -diazePAM 5 MG TAB As Ordered
== END ==
LOC: M PAIN 10:00
DX: G89.29 Other chronic pain (principal); M47.815 Spondylosis without myelopathy or radiculopathy, thoracolumbar region; M47.816 Spondylosis without myelopathy or radiculopathy, lumbar region; I10 Essential (primary) hypertension; M19.90 Unspecified osteoarthritis, unspecified site; E11.9 Type 2 diabetes mellitus without complications; J30.2 Other seasonal allergic rhinitis; E78.00 Pure hypercholesterolemia, unspecified; K44.9 Diaphragmatic hernia without obstruction or gangrene; M85.80 Other specified disorders of bone density and structure, unspecified site; Z79.82 Long term (current) use of aspirin; Z79.891 Long term (current) use of opiate analgesic; Z79.899 Other long term (current) drug therapy; Z86.79 Personal history of other diseases of the circulatory system; Z87.39 Personal history of other diseases of the musculoskeletal system and connective tissue
CPT/HCPCS: J3301

== ENCOUNTER → 2018-04-15 | Outpatient (CLI) | payer MEDICARE, OTHER | LOC: M PAIN 10:45 | DX: M43.07 Spondylolysis, lumbosacral region (principal); M54.17 Radiculopathy, lumbosacral region; G89.29 Other chronic pain; E55.9 Vitamin D deficiency, unspecified; M19.90 Unspecified osteoarthritis, unspecified site; J30.2 Other seasonal allergic rhinitis; I10 Essential (primary) hypertension; E78.00 Pure hypercholesterolemia, unspecified; M85.80 Other specified disorders of bone density and structure, unspecified site; K44.9 Diaphragmatic hernia without obstruction or gangrene; Z79.82 Long term (current) use of aspirin; Z79.891 Long term (current) use of opiate analgesic; Z79.899 Other long term (current) drug therapy; Z86.79 Personal history of other diseases of the circulatory system; Z87.11 Personal history of peptic ulcer disease | CPT/HCPCS: G0463 ==

== ENCOUNTER → 2018-04-19 | Outpatient (CLI) | payer MEDICARE, OTHER | LOC: M RAD 06:32 | DX: M43.07 Spondylolysis, lumbosacral region (principal) | CPT/HCPCS: 72148 ==

== ENCOUNTER → 2018-05-13 | Outpatient (CLI) | payer MEDICARE, OTHER ==
[~2018-05-13] MED LIST changes: -BUPIVACAINE HCL 0.25% 30 ML VIAL As Ordered; -TRIAMCINOLONE ACETONIDE SUSP 40 MG/ML VIAL (J3301) As Ordered; +methylPREDNISolone SUSP 40 MG/ML (DEPO-medrol) VIAL (J1030) As Ordered
== END ==
LOC: M PAIN 10:45
DX: M51.17 Intervertebral disc disorders with radiculopathy, lumbosacral region (principal); M96.1 Postlaminectomy syndrome, not elsewhere classified; M19.90 Unspecified osteoarthritis, unspecified site; J30.9 Allergic rhinitis, unspecified; I10 Essential (primary) hypertension; E78.00 Pure hypercholesterolemia, unspecified; M85.80 Other specified disorders of bone density and structure, unspecified site; Z79.82 Long term (current) use of aspirin; Z79.891 Long term (current) use of opiate analgesic; Z79.899 Other long term (current) drug therapy; Z86.79 Personal history of other diseases of the circulatory system; Z87.11 Personal history of peptic ulcer disease
CPT/HCPCS: J1030

== ENCOUNTER → 2018-06-01 | Outpatient (CLI) | payer MEDICARE, OTHER | LOC: M PAIN 10:30 | DX: M43.07 Spondylolysis, lumbosacral region (principal); M54.17 Radiculopathy, lumbosacral region; I10 Essential (primary) hypertension; J30.89 Other allergic rhinitis; M19.90 Unspecified osteoarthritis, unspecified site; E55.9 Vitamin D deficiency, unspecified; E78.00 Pure hypercholesterolemia, unspecified; M85.80 Other specified disorders of bone density and structure, unspecified site; Z79.82 Long term (current) use of aspirin; Z79.891 Long term (current) use of opiate analgesic; Z79.899 Other long term (current) drug therapy; Z86.79 Personal history of other diseases of the circulatory system; Z87.11 Personal history of peptic ulcer disease | CPT/HCPCS: G0463 ==

== ENCOUNTER → 2018-09-01 | Outpatient (CLI) | payer MEDICARE, OTHER ==
[~2018-09-01] MED LIST changes: +AMLO5TAB OR; +ASPI325T OR; +CALCIUM PO; +CORE20CA OR; -ISOVUE-M 300 61% 15ML VIAL (Q9967) As Ordered; -LIDOCAINE 1% SDV INJ 30 ML VIAL As Ordered; +LIPI80TA OR; +MECL25TA2 OR; +PLAV75TA2 OR; +RANE1000 OR; +VIT D PO; +centrum PO; -methylPREDNISolone SUSP 40 MG/ML (DEPO-medrol) VIAL (J1030) As Ordered; +vitamin D PO
--- NOTE | 2018-09-17 02:20 | ECWPNPC ---
PATIENT NAME: PHYLLIS COOK : 1935 GENDER: FEMALE VISIT DATE: 09/01/2018 DISCHARGE DATE: 09/01/18 1041 VISIT LOCKED DATE TIME: PHYSICIAN: WAQAS DUPREE RESOURCE: WAQAS DUPREE REASON FOR APPOINTMENT 1. BACK HISTORY OF PRESENT ILLNESS HISTORY OF PRESENT ILLNESS: HERE FOR POST PROCEDURE F/U.HAD CAUDAL EPIDURAL ON 05-13-18.REPORTING SIGNIFICANT IMPROVEMENT IN PAIN THAT CONTINUES TODAY.RATING PAIN VAS 2/10.PAIN IS INTERMITTENT ACHING WITH PROLONGED SITTING OR STANDING.FINDS CURRENT MEDICATION IS HELPFUL AT KEEPING HER FUNCTIONAL.STATES SHE IS ABLE TO TOLERATE WALKING FOR GREATER THAN 25 FEET WITHOUT SEVERE PAIN. PAIN THE PATIENT DESCRIBES THE PAIN... THE PATIENT DESCRIBES THE PAIN... THE PATIENT DESCRIBES THE PAIN... PAIN THE PATIENT DESCRIBES THE PAIN... THE PATIENT DESCRIBES THE PAIN... THE PATIENT DESCRIBES THE PAIN... FALL RISK SCREENING: SCREENING : NO FALLS IN THE PAST YEAR. CURRENT MEDICATIONS TAKING ASPIRIN 81 MG TABLET DELAYED RELEASE 1 TABLET NEEDED ORALLY DAILY TAKING COREG CR 20 MG CAPSULE EXTENDED RELEASE 24 HOUR 1 CAP(S) ORALLY DAILY TAKING RANEXA 1000 MG TABLET EXTENDED RELEASE 12 HOUR 1 TABLET ORALLY TWICE A DAY TAKING PANTOPRAZOLE SODIUM 40 MG TABLET DELAYED RELEASE 1 TABLET ORALLY ONCE A DAY TAKING ISOSORBIDE MONONITRATE ER 60 MG TABLET EXTENDED RELEASE 24 HOUR (PRIOR AUTH: RX REF#:[id number]) ORAL TAKING LIPITOR 80 MG TABLET 1 TABLET ORALLY ONCE A DAY TAKING CALCIUM 600 + D 600-400 MG-UNIT TABLET 2 TABLET ORALLY BID TAKING VITAMIN D 1000 UNIT TABLET 1 TABLET ORALLY ONCE A DAY TAKING SPIRONOLACTONE 25 MG TABLET 1 TABLET ORALLY ONCE A DAY TAKING LUTEIN 6 MG CAPSULE 1 CAPSULE WITH A MEAL ORALLY ONCE A DAY TAKING COLACE 50 MG CAPSULE 1 CAPSULE NEEDED ORALLY ONCE A DAY, NOTES: 2 DAYS AGO TAKING ADJUST BATH/SHOWER SEAT - MISCELLANEOUS DIRECTED SHOWER SEAT S32.010D TAKING WALKER - MISCELLANEOUS DIRECTED FX L-1 FOLDING TAKING TRANSFER BENCH - MISCELLANEOUS DIRECTED SHOWER CHAIR S32.010D TAKING NITROSTAT 0.4 MG TABLET SUBLINGUAL SUBLINGUAL NEEDED, NOTES: NONE RECENTLY TAKING LYRICA 100 MG CAPSULE 1 CAPSULE ORALLY BID MDD2 THREE MOS. SUPPLY CAT. D CHRONIC PAIN TAKING HYDROCODONE-ACETAMINOPHEN 10-325 MG TABLET 1 ORAL Q8H PRN MDD3 3MOS SUPPLY CAT D CHRONIC PAIN MEDICATION LIST REVIEWED AND RECONCILED WITH THE PATIENT PAST MEDICAL HISTORY VITAMIN D DEFICIENCY ARTHRITIS ENVIRONMENTAL ALLERGIES HYPERTENSION HEART ATTACK, 2007 HX. OF VAIN ,PAPSMEAR ABNORMAL MAMMOGRAM, CAT 3 10/13 ALSO 04/14 OSTEOPENIA ELEVATED CHOLESTOEROL RIGHT SHOULDER PROBLEM,2011 GASTRIC ULCER 06/23/2013 TORN ROTATOR CUFF, AFTER A FALL RECTOCELE ,WAS TREATED WITH A PESSARY BUT COULD NOT TOLERATE IT .TIED OA BLADDER MED ,TOO MANY SIDE EFFECTS RIGHT TORN BICEP HIATAL HERNIA ALLERGIES ENVIRONMENTAL: RUNNY NOSE, SNEEZING: ALLERGY SURGICAL HISTORY BLADDER SUSPENSION/UTERUS SUSPENSION 1964 HYSTERECTOMY 1965 LAMINECTOMY 1977 BACK SURGERY 1998 SIGMOIDOSCOPY/PROCTOSCOPY 2000 RECTAL PROLAPSE SURGERY 2001 CABG 4 VESSELS 2007 CARDIAC CATH WITH 4 STENTS 2006 CARDIAC CATHS 9 TIMES WITH STENTS TOOTH EXTRACTION 07/2017 STACY TO LAD, FIRMA SEQUENTIAL TO OM AND D1, SVG TO PDA. 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 1-2 CUPS/DAY SEXUAL HX HAD SEX IN THE LAST 12 MONTHS (VAGINAL, ORAL, OR ANAL)?NO HAVE YOU EVER HAD AN STD?NO HIV / HEP-C SCREENING HIV TEST OFFERED TO PATIENT:NO AGE HEP-C TEST OFFERED TO PATIENT:NO AGE GNOSTICISM GNOSTICISM NO BAHAI BELIEFS THAT WOULD IMPACT HEALTH CARE. LANGUAGE LANGUAGES SPOKEN:BELIZEAN EDUCATION LEVEL OF EDUCATION:HIGH SCHOOL SOME COLLEGE LEARNING BARRIERS / SPECIAL NEEDS CHANGE FROM LAST VISIT?NO BARRIERS TO LEARNING?NO HEARING IMPAIRED?NO VISION IMPAIRED?YES COGNITIVELY IMPAIRED?NO :CORRECTIVE LENSES READINESS TO LEARN?YES LEARNING PREFERENCES?NO LEARNING CAPABILITIES PRESENT?YES EMOTIONAL BARRIERS?NO SPECIAL DEVICES?YES :CANE FIELD SUPPORT REP NEEDED?NO DOMESTIC VIOLENCE DO YOU FEEL SAFE IN YOUR ENVIRONMENT?YES OCCUPATION: RETIRED. DIET: REGULAR, LOW SODIUM. EXERCISE: NO REGULAR EXERCISE. MARITAL STATUS: . OTHERS AT HOME: SPOUSE. PAIN CLINIC PFS, CLERGY, PUBLIC HEALTH REFERRALS PFS REFERRAL NEEDED?NO CLERGY REFERRAL NEEDED?NO PUBLIC HEALTH REFERRAL NEEDED?NO HAS THE PATIENT BEEN EDUCATED REGARDING HIS/HER PLAN OF CARE?YES HAS THE PATIENT BEEN EDUCATED REGARDING PAIN, THE RISK FOR PAIN, THE IMPORTANCE OF EFFECTIVE PAIN MANAGEMENT, AND THE PAIN ASSESSMENT PROCESS?YES ADVANCE DIRECTIVE ADVANCE DIRECTIVE DISCUSSED WITH PATIENT:YES HCP,LIVING WILL, NONHOSPITAL DNR DENIES SMOKING OR STREET DRUGS. DRINKS APPROXIMATELY 3-4 GLASSES OF WINE PER MONTH, OBDULIO GREENTTEREVIEWED WITH PT 02/22/18 1125 LASREVIEWED WITH PATIENT 04/15/18 1106 JS. HOSPITALIZATION/MAJOR DIAGNOSTIC PROCEDURE SEE ABOVE SURGICAL HX REVIEW OF SYSTEMS REVIEWED BY: PROVIDER: WAQAS JOINER . CONSTITUTIONAL: ANY CHANGE IN YOUR MEDICAL CONDITION? NO . CHILLS NO . FEVER NO . INFECTION: DO YOU HAVE NEW INFECTIONS? NO . DO YOU HAVE HISTORY OF MRSA? NO . MUSCULOSKELETAL: ANY NEW PATTERNS OF PAIN OR NUMBNESS? NO . GASTROENTEROLOGY: ANY NEW CHANGE IN BOWEL CONTROL? NO . GENITOURINARY: ANY NEW CHANGE IN BLADDER CONTROL? NO . IS THERE A CHANCE YOU COULD BE ? NO . HEMATOLOGY/LYMPH: DO YOU TAKE ANY BLOOD THINNERS? (FOR EXAMPLE- COUMADIN, PLAVIX, AGGRENOX, PLATEL, PRADAXA, OR XARELTO) NO . WHEN WAS YOUR LAST DOSE? DATE: TIME: . NEUROLOGY: HAVE YOU FALLEN IN THE PAST 12 MONTHS? NO . ANY NEW EXTREMITY NUMBNESS OR WEAKNESS? NO . CARDIOLOGY: DO YOU HAVE A PACEMAKER OR DEFIBRILLATOR? NO . RESPIRATORY: HAVE YOU BEEN SICK IN THE PAST WEEK? NO . FEVER NO . FLU LIKE SYMPTOMS? NO . COUGH NO . INTEGUMENTARY: DO YOU HAVE ANY RASHES OR OPEN SORES? NO . ALLERGIC/IMMUNO: ARE YOU ALLERGIC TO IV DYE? NO . ANY NEW ALLERGIES? NO . PSYCHIATRIC: DO YOU HAVE THOUGHTS OF HURTING YOURSELF OR SOMEONE ELSE? NO . ARE YOU ABUSED, NEGLECTED, OR IN AN UNSAFE ENVIRONMENT? NO . ENDOCRINOLOGY: ARE YOU DIABETIC? NO . OTHER: DO YOU NEED ANY PRESCRIPTIONS? NO . IF YES, PLEASE LIST: ____ . ANY NEW PROBLEMS WITH YOUR MEDICATIONS? NO . WHEN DID YOU LAST EAT? ____ . WHEN DID YOU LAST DRINK? ____ . WHAT DID YOU LAST DRINK? ____ . NAME OF PERSON DRIVING YOU HOME? ____ . DO YOU HAVE ANY OTHER QUESTIONS OR CONCERNS NO . VITAL SIGNS WT 116 LBS, HT 59 IN, BMI 23.43 INDEX, BP 184/86 MM HG, REPEAT BP 150/80 MM HG, HR 73 /MIN, RR 18 /MIN, TEMP 98.2 F, OXYGEN SAT % 99%, NA INITIALS SC 09:58, REVIEWED BY: SOTO B/P MANUAL. EM. EXAMINATION GENERAL EXAMINATION: GENERAL APPEARANCE:AWAKE,ALERT ,PLEAASANT . PSYCHAFFECT NORMAL . LUNGS:LUNG MOHAN ARE CLEAR TO AUSCULTATION BILATERALLY. GOOD MOVEMENT OF AIR . HEART:S1, S2 IN A REGULAR RATE AND RHYTHM. NO SIGNIFICANT MURMURS, RUBS OR GALLOPS NOTED . ASSESSMENTS LUMBOSACRAL SPONDYLOLYSIS - M43.07 (PRIMARY) LUMBOSACRAL RADICULOPATHY - M54.17 TREATMENT LUMBOSACRAL SPONDYLOLYSIS CONTINUE LYRICA CAPSULE, 100 MG, 1 CAPSULE, ORALLY, BID MDD2 THREE MOS. SUPPLY CAT. D CHRONIC PAIN CONTINUE HYDROCODONE-ACETAMINOPHEN TABLET, 10-325 MG, 1, ORAL, Q8H PRN MDD3 3MOS SUPPLY CAT D CHRONIC PAIN PROCEDURE CODES FA211 ESTABILISHED PATIENT [facility] CHARGE DISPOSITION & COMMUNICATION FOLLOW UP 3 MONTHS ELECTRONICALLY SIGNED BY RHYS LYNCH ON 09/16/2018 AT 04:37 PM EDT DISCLAIMER : THIS IS A VISIT SUMMARY EXTRACTED FROM THE [employer] CHART. IT IS NOT A COPY OF THE [employer] PROGRESS NOTE. RAFAEL
== END ==
LOC: M PAIN 10:00
PROVIDERS: ATTEND Nurse Practitioner Family
DX: M43.07 Spondylolysis, lumbosacral region (principal); M54.17 Radiculopathy, lumbosacral region; E55.9 Vitamin D deficiency, unspecified; M19.90 Unspecified osteoarthritis, unspecified site; I10 Essential (primary) hypertension; I25.2 Old myocardial infarction; M85.80 Other specified disorders of bone density and structure, unspecified site; E78.00 Pure hypercholesterolemia, unspecified; K44.9 Diaphragmatic hernia without obstruction or gangrene; Z98.61 Coronary angioplasty status; J30.9 Allergic rhinitis, unspecified; Z79.82 Long term (current) use of aspirin; Z79.899 Other long term (current) drug therapy

== ENCOUNTER → 2018-10-20 | Outpatient (CLI) | payer MEDICARE, OTHER ==
--- NOTE | 2018-10-20 15:20 | REPMRS ---
Patient History The patient states she had a clinical breast exam in 10/2018. Patient is postmenopausal. No known family history of cancer. Benign excisional biopsy of the right breast, 1998. No Hormone Replacement Therapy [facility] Screen Mammo: October 20, 2018 - Exam #: [id number] Bilateral CC and MLO view(s) were taken. Technologist: Agatha White, Technologist Prior study comparison: July 31, 2017, digital woman screen mammo performed at [facility]. May 01, 2016, digital woman screen mammo performed at [facility]. March 08, 2015, digital woman screen mammo performed at [facility]. FINDINGS: There are scattered fibroglandular densities. There has been no change in the appearance of the mammogram from the prior studies. There is a mild amount of scattered fibroglandular density which is fairly symmetric. There is no interval development of dominant mass, architectural distortion, or clustered microcalcification suggestive of malignancy. 3-D tomosynthesis shows no additional findings. Assessment: BI-RADS/ACR category 1 mammogram. Negative Mammogram. Recommendation Routine screening mammogram of both breasts in 1 year (for women over age 40). This patient's Lifetime Breast Cancer RIsk is estimated at 0.9 %. This mammogram was interpreted with the aid of an FDA-approved computer-aided dectection system. Electronically Signed By: Campbell Abernathy MD 10/20/18 5691
== END ==
LOC: M WHC 10:36
PROVIDERS: ATTEND Nurse Practitioner Family
DX: Z12.31 Encounter for screening mammogram for malignant neoplasm of breast (principal); Z78.0 Asymptomatic menopausal state; Z86.018 Personal history of other benign neoplasm
CPT/HCPCS: 77063; 77067; G0463

== ENCOUNTER → 2018-11-30 | Outpatient (CLI) | payer MEDICARE, OTHER | LOC: M PAIN 10:00 | PROVIDERS: ATTEND Nurse Practitioner Family | DX: M79.18 Myalgia, other site (principal); E55.9 Vitamin D deficiency, unspecified; M19.90 Unspecified osteoarthritis, unspecified site; I10 Essential (primary) hypertension; E78.00 Pure hypercholesterolemia, unspecified; Z95.5 Presence of coronary angioplasty implant and graft; Z79.82 Long term (current) use of aspirin; Z79.891 Long term (current) use of opiate analgesic; Z79.899 Other long term (current) drug therapy ==

== ENCOUNTER → 2018-12-28 | Outpatient (REF) | payer MEDICARE, OTHER ==
[2018-12-31 00:11] LABS: ANA (HEP2) Negative (.); Lyme Disease IgG/IgM Antibodie <0.91 ISR (0.00-0.90); Lyme Disease IgM Ab Quantitati <0.80 index (0.00-0.79)
== END ==
LOC: M SFHCCLAY 11:41
PROVIDERS: ATTEND Nurse Practitioner Family
DX: M25.50 Pain in unspecified joint (principal); H61.23 Impacted cerumen, bilateral
CPT/HCPCS: 69209; 85652; 86038; 86431; 86617; G0463

== ENCOUNTER → 2019-01-13 | Outpatient (CLI) | payer MEDICARE, OTHER ==
[~2019-01-13] MED LIST changes: +BUPIVACAINE HCL 0.25% 10 ML VIAL As Ordered ONE; +BUPIVACAINE HCL 0.25% 30 ML VIAL As Ordered ONE; +TRIAMCINOLONE ACETONIDE SUSP 40 MG/ML VIAL (J3301) As Ordered ONE; +diazePAM 5 MG TAB As Ordered ONE
--- NOTE | 2019-01-20 00:29 | ECWPNPC ---
PATIENT NAME: PHYLLIS COOK : 1935 GENDER: FEMALE VISIT DATE: 01/13/2019 DISCHARGE DATE: 01/13/19 1222 VISIT LOCKED DATE TIME: PHYSICIAN: ALINA RICE MD RESOURCE: ALINA RICE MD REASON FOR APPOINTMENT 1. TPI HISTORY OF PRESENT ILLNESS HISTORY OF PRESENT ILLNESS: PAIN THE PATIENT DESCRIBES THE PAIN... FALL RISK SCREENING: SCREENING :NO FALLS REPORTED IN THE LAST YEAR CURRENT MEDICATIONS TAKING ASPIRIN 81 MG TABLET DELAYED RELEASE 1 TABLET NEEDED ORALLY DAILY, NOTES: 01/13/19699 TAKING COREG CR 20 MG CAPSULE EXTENDED RELEASE 24 HOUR 1 CAP(S) ORALLY DAILY, NOTES: 01/13/19699 TAKING RANEXA 1000 MG TABLET EXTENDED RELEASE 12 HOUR 1 TABLET ORALLY TWICE A DAY, NOTES: 01/13/19699 TAKING PANTOPRAZOLE SODIUM 40 MG TABLET DELAYED RELEASE 1 TABLET ORALLY ONCE A DAY, NOTES: 01/13/19699 TAKING ISOSORBIDE MONONITRATE ER 60 MG TABLET EXTENDED RELEASE 24 HOUR (PRIOR AUTH: RX REF#:[id number]) ORAL , NOTES: 01/12/191899 TAKING LIPITOR 80 MG TABLET 1 TABLET ORALLY ONCE A DAY, NOTES: 01/12/191899 TAKING CALCIUM 600 + D 600-400 MG-UNIT TABLET 2 TABLET ORALLY BID, NOTES: 01/12/19699 TAKING VITAMIN D 1000 UNIT TABLET 1 TABLET ORALLY ONCE A DAY, NOTES: 01/12/19699 TAKING SPIRONOLACTONE 25 MG TABLET 1 TABLET ORALLY ONCE A DAY, NOTES: 01/12/19699 TAKING LUTEIN 6 MG CAPSULE 1 CAPSULE WITH A MEAL ORALLY ONCE A DAY, NOTES: 01/12/19699 TAKING COLACE 50 MG CAPSULE 1 CAPSULE NEEDED ORALLY ONCE A DAY, NOTES: 01/12/19 TAKING ADJUST BATH/SHOWER SEAT - MISCELLANEOUS DIRECTED SHOWER SEAT S32.010D TAKING WALKER - MISCELLANEOUS DIRECTED FX L-1 FOLDING TAKING TRANSFER BENCH - MISCELLANEOUS DIRECTED SHOWER CHAIR S32.010D TAKING NITROSTAT 0.4 MG TABLET SUBLINGUAL SUBLINGUAL NEEDED, NOTES: NONE RECENTLY TAKING LYRICA 100 MG CAPSULE 1 CAPSULE ORALLY BID MDD2 THREE MOS. SUPPLY CAT. D CHRONIC PAIN, NOTES: 01/12/191899 TAKING HYDROCODONE-ACETAMINOPHEN 10-325 MG TABLET 1 ORAL Q8H PRN MDD3 3MOS SUPPLY CAT D CHRONIC PAIN, NOTES: 01/12/19 2100 MEDICATION LIST REVIEWED AND RECONCILED WITH THE PATIENT PAST MEDICAL HISTORY VITAMIN D DEFICIENCY ARTHRITIS ENVIRONMENTAL ALLERGIES HYPERTENSION HEART ATTACK, 2007 HX. OF VAIN ,PAPSMEAR ABNORMAL MAMMOGRAM, CAT 3 10/13 ALSO 04/14 OSTEOPENIA ELEVATED CHOLESTOEROL RIGHT SHOULDER PROBLEM,2011 GASTRIC ULCER 06/23/2013 TORN ROTATOR CUFF, AFTER A FALL RECTOCELE ,WAS TREATED WITH A PESSARY BUT COULD NOT TOLERATE IT .TIED OA BLADDER MED ,TOO MANY SIDE EFFECTS RIGHT TORN BICEP HIATAL HERNIA ALLERGIES ENVIRONMENTAL: RUNNY NOSE, SNEEZING - ALLERGY SURGICAL HISTORY BLADDER SUSPENSION/UTERUS SUSPENSION 1964 HYSTERECTOMY 1965 LAMINECTOMY 1977 BACK SURGERY 1998 SIGMOIDOSCOPY/PROCTOSCOPY 2000 RECTAL PROLAPSE SURGERY 2001 CABG 4 VESSELS 2007 CARDIAC CATH WITH 4 STENTS 2006 CARDIAC CATHS 9 TIMES WITH STENTS TOOTH EXTRACTION 07/2017 STACY TO LAD, FIRMA SEQUENTIAL TO OM AND D1, SVG TO PDA. 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 EDUCATION LEVEL OF EDUCATION:HIGH SCHOOL SOME COLLEGE DIET: REGULAR, LOW SODIUM. LANGUAGE LANGUAGES SPOKEN:BELGIAN DOMESTIC VIOLENCE DO YOU FEEL SAFE IN YOUR ENVIRONMENT?YES RECREATIONAL DRUG USE DRUG USE?NO EXERCISE: NO REGULAR EXERCISE. 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 NEEDED?NO PAIN CLINIC PFS, CLERGY, PUBLIC HEALTH REFERRALS PFS REFERRAL NEEDED?NO CLERGY REFERRAL NEEDED?NO PUBLIC HEALTH REFERRAL NEEDED?NO HAS THE PATIENT BEEN EDUCATED REGARDING HIS/HER PLAN OF CARE?YES HAS THE PATIENT BEEN EDUCATED REGARDING PAIN, THE RISK FOR PAIN, THE IMPORTANCE OF EFFECTIVE PAIN MANAGEMENT, AND THE PAIN ASSESSMENT PROCESS?YES LATEX QUESTIONNAIRE LATEX ALLERGY : HAVE YOU EVER DEVELOPED ANY TYPE OF REACTION AFTER HANDLING LATEX PRODUCTS SUCH RUBBER GLOVES, CONDOMS, DIAPHRAGMS, BALLOONS, SOCKS, OR UNDERWEAR?NO LATEX ALLERGY : HAVE YOU EVER DEVELOPED ANY TYPE OF REACTION DURING OR AFTER DENTAL APPOINTMENT, VAGINAL/RECTAL EXAMINATION, SURGICAL PROCEDURE, OR ANY OTHER EXPOSURE?NO DATE ASKED : 10/20/2018 LATEX RISK : HAVE YOU EVER HAD ANY DIFFICULTY BREATHING OR HIVES AFTER EATING OR HANDLING ANY FRUITS, OR VEGETABLES; SUCH KIWI, BANANAS, STONE FRUITS, OR CHESTNUTSNO LATEX RISK : DO YOU HAVE A PREVIOUS PERSONAL HISTORY OF MORE THAN NINE SURGERIES, SPINA BIFIDA, OR REPEATED CATHERTIZATIONS? NO LATEX RISK : ARE YOU FREQUENTLY EXPOSED TO LATEX PRODUCTS IN YOUR OCCUPATION?NO CAFFEINE CAFFEINE USE?YES HOW OFTEN AND HOW MUCH? 3 CUPS DAILY ADVANCE DIRECTIVE ADVANCE DIRECTIVE DISCUSSED WITH PATIENT:YES HCP,LIVING WILL, NONHOSPITAL DNR ON FILE AT [facility] NO YAZDANISM BELIEFS THAT WOULD IMPACT HEALTH CARE. MARITAL STATUS: . ALCOHOL SCREENING DID YOU HAVE A DRINK CONTAINING ALCOHOL IN THE PAST YEAR?YES HOW OFTEN DID YOU HAVE SIX OR MORE DRINKS ON ONE OCCASION IN THE PAST YEAR?NEVER (0 POINTS) HOW MANY DRINKS DID YOU HAVE ON A TYPICAL DAY WHEN YOU WERE DRINKING IN THE PAST YEAR?1 OR 2 (0 POINTS) HOW OFTEN DID YOU HAVE A DRINK CONTAINING ALCOHOL IN THE PAST YEAR?MONTHLY OR LESS (1 POINT) POINTS1 INTERPRETATIONNEGATIVE OCCUPATION: RETIRED. SEXUAL HX HAD SEX IN THE LAST 12 MONTHS (VAGINAL, ORAL, OR ANAL)?NO HAVE YOU EVER HAD AN STD?NO DENIES SMOKING OR STREET DRUGS. DRINKS APPROXIMATELY 3-4 GLASSES OF WINE PER MONTH, OBDULIO FITCHETTEREVIEWED WITH PT 02/22/18 1125 LASREVIEWED WITH PATIENT 04/15/18 1106 JSREVIEWED WITH PT 11/30/18 1015 BVREVIEWED WITH PT 01/13/19 1115 LAS. HOSPITALIZATION/MAJOR DIAGNOSTIC PROCEDURE SEE ABOVE SURGICAL HX REVIEW OF SYSTEMS REVIEWED BY: PROVIDER: . CONSTITUTIONAL: ANY CHANGE IN YOUR MEDICAL CONDITION? NO . CHILLS NO . FEVER NO . INFECTION: DO YOU HAVE NEW INFECTIONS? NO . DO YOU HAVE HISTORY OF MRSA? NO . MUSCULOSKELETAL: ANY NEW PATTERNS OF PAIN OR NUMBNESS? NO . GASTROENTEROLOGY: ANY NEW CHANGE IN BOWEL CONTROL? NO . GENITOURINARY: ANY NEW CHANGE IN BLADDER CONTROL? NO . IS THERE A CHANCE YOU COULD BE ? NO . HEMATOLOGY/LYMPH: DO YOU TAKE ANY BLOOD THINNERS? (FOR EXAMPLE- COUMADIN, PLAVIX, AGGRENOX, PLATEL, PRADAXA, OR XARELTO) NO . WHEN WAS YOUR LAST DOSE? DATE: TIME: . NEUROLOGY: HAVE YOU FALLEN IN THE PAST 12 MONTHS? NO . ANY NEW EXTREMITY NUMBNESS OR WEAKNESS? NO . CARDIOLOGY: DO YOU HAVE A PACEMAKER OR DEFIBRILLATOR? NO . RESPIRATORY: HAVE YOU BEEN SICK IN THE PAST WEEK? NO . FEVER NO . FLU LIKE SYMPTOMS? NO . COUGH NO . INTEGUMENTARY: DO YOU HAVE ANY RASHES OR OPEN SORES? NO . ALLERGIC/IMMUNO: ARE YOU ALLERGIC TO IV DYE? NO . ANY NEW ALLERGIES? NO . PSYCHIATRIC: DO YOU HAVE THOUGHTS OF HURTING YOURSELF OR SOMEONE ELSE? NO . ARE YOU ABUSED, NEGLECTED, OR IN AN UNSAFE ENVIRONMENT? NO . ENDOCRINOLOGY: ARE YOU DIABETIC? NO . OTHER: DO YOU NEED ANY PRESCRIPTIONS? NO . IF YES, PLEASE LIST: ____ . ANY NEW PROBLEMS WITH YOUR MEDICATIONS? NO . WHEN DID YOU LAST EAT? ____ . WHEN DID YOU LAST DRINK? ____ . WHAT DID YOU LAST DRINK? ____ . NAME OF PERSON DRIVING YOU HOME? ____ . DO YOU HAVE ANY OTHER QUESTIONS OR CONCERNS NO . VITAL SIGNS WT 118 LBS, HT 59 IN, BMI 23.83 INDEX, BP 180/81 MM HG, HR 74 /MIN, RR 18 /MIN, TEMP 97.0 F, OXYGEN SAT % 100%, SAFE IN ENV? (Y/N) YES, NA INITIALS AW 1028, REVIEWED BY: DORY. ASSESSMENTS MYALGIA, OTHER SITE - M79.18 (PRIMARY) PROCEDURES PN TRIGGER POINT INJECTION WITH STEROIDS PRE PROCEDURE DIAGNOSIS 1. MYALGIA 2. PAIN AT LEFT LOW BACK AREA POST PROCEDURE DIAGNOSIS 1. MYALGIA 2. PAIN AT LEFT LOW BACK AREA PROCEDURE TRIGGER POINT INJECTION AT LEFT LOW BACK AREA SURGEON DR. ALINA RICE TRAFFIC WORKFORCE REPRESENTATIVE NONE ANESTHESIA LOCAL PRE PROCEDURE NOTE THE PATIENT HAS A HISTORY OF CHRONIC PAIN AT THE LEFT LOW BACK AREA. I EVALUATE THE PATIENT AND REVIEWED THE CHART. THERE IS EVIDENCE OF BANDS OF TISSUE WITH RESTRICTION OF MOVEMENT AND PRESENCE OF TRIGGER POINT AT THE AFFECTED AREA. I WENT OVER THE RISKS, ALTERNATIVES, AND BENEFITS ASSOCIATED WITH THIS PROCEDURE. THE PATIENT WOULD LIKE TO PROCEED AND GIVE CONSENT TO PERFORMED THE PROCEDURE. THE PATIENT DENIES UNEXPLAINABLE WEIGHT LOSS, FEVER, CHILLS, OR NEW CHANGES IN URINARY OR BOWEL CONTROL DESCRIPTION OF PROCEDURE THE PATIENT WAS BROUGHT TO THE PROCEDURE ROOM AND PLACED IN THE SITTING POSITION. THE AREA WAS CLEANED WITH ALCOHOL. THE PROCEDURE WAS DONE USING ASEPTIC STERILE TECHNIQUE. I CHECKED LATERALITY AND THE LEVEL WHERE THE PROCEDURE WAS GOING TO BE PERFORMED WITH THE PATIENT AND THE SUPPORTING STAFF AT THE MOMENT OF THE TIME OUT IN THE PROCEDURE ROOM. USING A 25-GAUGE NEEDLE, TRIGGER POINTS WERE INJECTED AT THE LEFT LOW BACK AREA WITH A TOTAL OF 40 ML OF BUPIVACAINE 0.25% AND KENALOG 40 MG. THERE WAS NO EVIDENCE OF BLOOD, PARESTHESIA OR CEREBROSPINAL FLUID DURING THE PROCEDURE. THE PATIENT WAS SENT TO THE RECOVERY ROOM. THE PATIENT WAS MOVING THE EXTREMITIES AND DOING WELL. THERE WAS NO COMPLICATION DURING THE PROCEDURE POST PROCEDURE NOTE THE PATIENT WILL BE SEEN IN A FOLLOW UP IN THE NEXT FEW WEEKS. INSTRUCTIONS WERE GIVEN, QUESTIONS WERE ANSWERED, AND THE PATIENT EXPRESSED UNDERSTANDING AND AGREES WITH THE PLAN. I, JAYSON OCOPER, DOCUMENTED THE ABOVE INFORMATION ACTING A SCRIBE FOR DR. RICE. I HAVE REVIEWED THE ABOVE DOCUMENT, WRITTEN BY JAYSON MARIE AND I VERIFY THAT IT IS ACCURATE. PROCEDURE CODES 62622 INJ TRIGGER POINT / [facility] DISPOSITION & COMMUNICATION FOLLOW UP 3 WEEKS ELECTRONICALLY SIGNED BY ALINA RICE MD, MD ON 01/19/2019 AT 10:14 AM EDT DISCLAIMER : THIS IS A VISIT SUMMARY EXTRACTED FROM THE [employer] CHART. IT IS NOT A COPY OF THE [employer] PROGRESS NOTE. RAFAEL
== END ==
LOC: M PAIN 10:30
PROVIDERS: ATTEND Anesthesiology
DX: M79.18 Myalgia, other site (principal); E55.9 Vitamin D deficiency, unspecified; M19.90 Unspecified osteoarthritis, unspecified site; J30.9 Allergic rhinitis, unspecified; I10 Essential (primary) hypertension; I25.2 Old myocardial infarction; M85.80 Other specified disorders of bone density and structure, unspecified site; E78.00 Pure hypercholesterolemia, unspecified; Z95.1 Presence of aortocoronary bypass graft; Z90.710 Acquired absence of both cervix and uterus; Z79.82 Long term (current) use of aspirin; Z79.899 Other long term (current) drug therapy; Z79.891 Long term (current) use of opiate analgesic
CPT/HCPCS: 20552; J3301

== ENCOUNTER → 2019-02-17 | Outpatient (CLI) | payer MEDICARE, OTHER ==
[~2019-02-17] MED LIST changes: -BUPIVACAINE HCL 0.25% 10 ML VIAL As Ordered ONE; -BUPIVACAINE HCL 0.25% 30 ML VIAL As Ordered ONE; -TRIAMCINOLONE ACETONIDE SUSP 40 MG/ML VIAL (J3301) As Ordered ONE; -diazePAM 5 MG TAB As Ordered ONE
--- NOTE | 2019-03-09 03:30 | ECWPNPC ---
PATIENT NAME: PHYLLIS COOK : 1935 GENDER: FEMALE VISIT DATE: 02/17/2019 DISCHARGE DATE: 02/17/19850 VISIT LOCKED DATE TIME: PHYSICIAN: WAQAS DUPREE RESOURCE: WAQAS DUPREE DISCLAIMER : THIS IS A VISIT SUMMARY EXTRACTED FROM THE ON LICENSE OF [facility] CHART. IT IS NOT A COPY OF THE [employer] PROGRESS NOTE. RAFAEL
== END ==
LOC: M PAIN 10:15
PROVIDERS: ATTEND Nurse Practitioner Family
DX: M43.07 Spondylolysis, lumbosacral region (principal); E55.9 Vitamin D deficiency, unspecified; M19.90 Unspecified osteoarthritis, unspecified site; I10 Essential (primary) hypertension; I25.2 Old myocardial infarction; E78.00 Pure hypercholesterolemia, unspecified; Z79.82 Long term (current) use of aspirin; Z79.891 Long term (current) use of opiate analgesic; Z79.899 Other long term (current) drug therapy

== ENCOUNTER → 2019-05-20 | Outpatient (CLI) | payer MEDICARE, OTHER ==
--- NOTE | 2019-06-07 08:13 | ECWPNPC ---
PATIENT NAME: PHYLLIS COOK : 1935 GENDER: FEMALE VISIT DATE: 05/20/2019 DISCHARGE DATE: 05/20/19 1051 VISIT LOCKED DATE TIME: PHYSICIAN: WAQAS DUPREE RESOURCE: WAQAS DUPREE REASON FOR APPOINTMENT 1. BACK HISTORY OF PRESENT ILLNESS HISTORY OF PRESENT ILLNESS: PAIN THE PATIENT DESCRIBES THE PAIN... HERE FOR F/U OF CHRONIC LOW BACK PAIN.RATING PAIN VAS 3-5/10.OVERALL DOING OK.CONTINUES TO BENEFIT FROM CAUDAL EPIDURAL DONE IN JANUARY.FINDS CURRENT MEDICINE SOMEWHAT HELPFUL.DENIES SIDE EFFECTS. FALL RISK SCREENING: SCREENING :NO FALLS REPORTED IN THE LAST YEAR CURRENT MEDICATIONS TAKING ASPIRIN 81 MG TABLET DELAYED RELEASE 1 TABLET NEEDED ORALLY DAILY TAKING COREG CR 20 MG CAPSULE EXTENDED RELEASE 24 HOUR 1 CAP(S) ORALLY DAILY TAKING RANEXA 1000 MG TABLET EXTENDED RELEASE 12 HOUR 1 TABLET ORALLY TWICE A DAY TAKING PANTOPRAZOLE SODIUM 40 MG TABLET DELAYED RELEASE 1 TABLET ORALLY ONCE A DAY TAKING ISOSORBIDE MONONITRATE ER 60 MG TABLET EXTENDED RELEASE 24 HOUR (PRIOR AUTH: RX REF#:[id number]) ORAL TAKING LIPITOR 80 MG TABLET 1 TABLET ORALLY ONCE A DAY TAKING CALCIUM 600 + D 600-400 MG-UNIT TABLET 2 TABLET ORALLY BID TAKING VITAMIN D 1000 UNIT TABLET 1 TABLET ORALLY ONCE A DAY TAKING SPIRONOLACTONE 25 MG TABLET 1 TABLET ORALLY ONCE A DAY TAKING LUTEIN 6 MG CAPSULE 1 CAPSULE WITH A MEAL ORALLY ONCE A DAY TAKING COLACE 50 MG CAPSULE 1 CAPSULE NEEDED ORALLY ONCE A DAY TAKING ADJUST BATH/SHOWER SEAT - MISCELLANEOUS DIRECTED SHOWER SEAT S32.010D TAKING WALKER - MISCELLANEOUS DIRECTED FX L-1 FOLDING TAKING TRANSFER BENCH - MISCELLANEOUS DIRECTED SHOWER CHAIR S32.010D TAKING NITROSTAT 0.4 MG TABLET SUBLINGUAL SUBLINGUAL NEEDED, NOTES: NONE RECENTLY TAKING LYRICA 100 MG CAPSULE 1 CAPSULE ORALLY BID MDD2 THREE MOS. SUPPLY CAT. D CHRONIC PAIN TAKING HYDROCODONE-ACETAMINOPHEN 10-325 MG TABLET 1 ORAL Q8H PRN MDD3 3MOS SUPPLY CAT D CHRONIC PAIN MEDICATION LIST REVIEWED AND RECONCILED WITH THE PATIENT PAST MEDICAL HISTORY VITAMIN D DEFICIENCY ARTHRITIS ENVIRONMENTAL ALLERGIES HYPERTENSION HEART ATTACK, 2006 HX. OF VAIN ,PAPSMEAR ABNORMAL MAMMOGRAM, CAT 3 10/13 ALSO 04/14 OSTEOPENIA ELEVATED CHOLESTOEROL RIGHT SHOULDER PROBLEM,2011 GASTRIC ULCER 06/23/2013 TORN ROTATOR CUFF, AFTER A FALL RECTOCELE ,WAS TREATED WITH A PESSARY BUT COULD NOT TOLERATE IT .TIED OA BLADDER MED ,TOO MANY SIDE EFFECTS RIGHT TORN BICEP HIATAL HERNIA ALLERGIES ENVIRONMENTAL: RUNNY NOSE, SNEEZING - ALLERGY SURGICAL HISTORY BLADDER SUSPENSION/UTERUS SUSPENSION 1964 HYSTERECTOMY 1965 LAMINECTOMY 1977 BACK SURGERY 1998 SIGMOIDOSCOPY/PROCTOSCOPY 2000 RECTAL PROLAPSE SURGERY 2001 CABG 4 VESSELS 2007 CARDIAC CATH WITH 4 STENTS 2006 CARDIAC CATHS 9 TIMES WITH STENTS TOOTH EXTRACTION 07/2017 STACY TO LAD, FIRMA SEQUENTIAL TO OM AND D1, SVG TO PDA. 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 EDUCATION LEVEL OF EDUCATION:HIGH SCHOOL SOME COLLEGE DIET: REGULAR, LOW SODIUM. LANGUAGE LANGUAGES SPOKEN:BELIZEAN DOMESTIC VIOLENCE DO YOU FEEL SAFE IN YOUR ENVIRONMENT?YES RECREATIONAL DRUG USE DRUG USE?NO EXERCISE: NO REGULAR EXERCISE. 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?NO PAIN CLINIC PFS, CLERGY, PUBLIC HEALTH REFERRALS PFS REFERRAL NEEDED?NO CLERGY REFERRAL NEEDED?NO PUBLIC HEALTH REFERRAL NEEDED?NO HAS THE PATIENT BEEN EDUCATED REGARDING HIS/HER PLAN OF CARE?YES HAS THE PATIENT BEEN EDUCATED REGARDING PAIN, THE RISK FOR PAIN, THE IMPORTANCE OF EFFECTIVE PAIN MANAGEMENT, AND THE PAIN ASSESSMENT PROCESS?YES LATEX QUESTIONNAIRE LATEX ALLERGY : HAVE YOU EVER DEVELOPED ANY TYPE OF REACTION AFTER HANDLING LATEX PRODUCTS SUCH RUBBER GLOVES, CONDOMS, DIAPHRAGMS, BALLOONS, SOCKS, OR UNDERWEAR?NO LATEX ALLERGY : HAVE YOU EVER DEVELOPED ANY TYPE OF REACTION DURING OR AFTER DENTAL APPOINTMENT, VAGINAL/RECTAL EXAMINATION, SURGICAL PROCEDURE, OR ANY OTHER EXPOSURE?NO LATEX RISK : HAVE YOU EVER HAD ANY DIFFICULTY BREATHING OR HIVES AFTER EATING OR HANDLING ANY FRUITS, OR VEGETABLES; SUCH KIWI, BANANAS, STONE FRUITS, OR CHESTNUTSNO LATEX RISK : DO YOU HAVE A PREVIOUS PERSONAL HISTORY OF MORE THAN NINE SURGERIES, SPINA BIFIDA, OR REPEATED CATHERIZATIONS? NO LATEX RISK : ARE YOU FREQUENTLY EXPOSED TO LATEX PRODUCTS IN YOUR OCCUPATION?NO DATE ASKED : 10/20/2018 CAFFEINE CAFFEINE USE?YES HOW OFTEN AND HOW MUCH? 3 CUPS DAILY ADVANCE DIRECTIVE ADVANCE DIRECTIVE DISCUSSED WITH PATIENT:YES HCP,LIVING WILL, NONHOSPITAL DNR ON FILE AT [facility] NO BAPTISM BELIEFS THAT WOULD IMPACT HEALTH CARE. MARITAL STATUS: . ALCOHOL SCREENING DID YOU HAVE A DRINK CONTAINING ALCOHOL IN THE PAST YEAR?YES HOW OFTEN DID YOU HAVE SIX OR MORE DRINKS ON ONE OCCASION IN THE PAST YEAR?NEVER (0 POINTS) HOW MANY DRINKS DID YOU HAVE ON A TYPICAL DAY WHEN YOU WERE DRINKING IN THE PAST YEAR?1 OR 2 (0 POINTS) HOW OFTEN DID YOU HAVE A DRINK CONTAINING ALCOHOL IN THE PAST YEAR?MONTHLY OR LESS (1 POINT) POINTS1 INTERPRETATIONNEGATIVE OCCUPATION: RETIRED. SEXUAL HX HAD SEX IN THE LAST 12 MONTHS (VAGINAL, ORAL, OR ANAL)?NO HAVE YOU EVER HAD AN STD?NO DENIES SMOKING OR STREET DRUGS. DRINKS APPROXIMATELY 3-4 GLASSES OF WINE PER MONTH, OBDULIO FITCHETTEREVIEWED WITH PT 02/22/18 1125 LASREVIEWED WITH PATIENT 04/15/18 1106 JSREVIEWED WITH PT 11/30/18 1015 BVREVIEWED WITH PT 01/13/19 1115 LASREVIEWED WITH PT 02/17/19 1040 BVREVIEWED WITH PATIENT 05/20/19 1025 JS. HOSPITALIZATION/MAJOR DIAGNOSTIC PROCEDURE SEE ABOVE SURGICAL HX REVIEW OF SYSTEMS REVIEWED BY: PROVIDER: WAQAS JOINER . CONSTITUTIONAL: ANY CHANGE IN YOUR MEDICAL CONDITION? NO . CHILLS NO . FEVER NO . INFECTION: DO YOU HAVE NEW INFECTIONS? NO . DO YOU HAVE HISTORY OF MRSA? NO . MUSCULOSKELETAL: ANY NEW PATTERNS OF PAIN OR NUMBNESS? NO . GASTROENTEROLOGY: ANY NEW CHANGE IN BOWEL CONTROL? NO . GENITOURINARY: ANY NEW CHANGE IN BLADDER CONTROL? NO . IS THERE A CHANCE YOU COULD BE ? NO . HEMATOLOGY/LYMPH: DO YOU TAKE ANY BLOOD THINNERS? (FOR EXAMPLE- COUMADIN, PLAVIX, AGGRENOX, PLATEL, PRADAXA, OR XARELTO) NO . WHEN WAS YOUR LAST DOSE? DATE: TIME: . NEUROLOGY: HAVE YOU FALLEN IN THE PAST 12 MONTHS? NO . ANY NEW EXTREMITY NUMBNESS OR WEAKNESS? YES, INCREASED PAIN/NUMBNESS, WEAKNESS TO BILATERAL HANDS . CARDIOLOGY: DO YOU HAVE A PACEMAKER OR DEFIBRILLATOR? NO . RESPIRATORY: HAVE YOU BEEN SICK IN THE PAST WEEK? NO . FEVER NO . FLU LIKE SYMPTOMS? NO . COUGH NO . INTEGUMENTARY: DO YOU HAVE ANY RASHES OR OPEN SORES? NO . ALLERGIC/IMMUNO: ARE YOU ALLERGIC TO IV DYE? NO . ANY NEW ALLERGIES? NO . PSYCHIATRIC: DO YOU HAVE THOUGHTS OF HURTING YOURSELF OR SOMEONE ELSE? NO . ARE YOU ABUSED, NEGLECTED, OR IN AN UNSAFE ENVIRONMENT? NO . ENDOCRINOLOGY: ARE YOU DIABETIC? NO . OTHER: DO YOU NEED ANY PRESCRIPTIONS? NO . IF YES, PLEASE LIST: ____ . ANY NEW PROBLEMS WITH YOUR MEDICATIONS? NO . WHEN DID YOU LAST EAT? ____ . WHEN DID YOU LAST DRINK? ____ . WHAT DID YOU LAST DRINK? ____ . NAME OF PERSON DRIVING YOU HOME? ____ . DO YOU HAVE ANY OTHER QUESTIONS OR CONCERNS FLU VACCINE 04/29/19 . VITAL SIGNS WT 116.0 LBS, HT 59 IN, BMI 23.43 INDEX, BP 139/69 MM HG, HR 71 /MIN, RR 18 /MIN, TEMP 96.0 F, OXYGEN SAT % 100%, SAFE IN ENV? (Y/N) YES, NA INITIALS AW 1020, REVIEWED BY: JENNIFER. EXAMINATION GENERAL EXAMINATION: GENERALAWAKE,ALERT ,PLEAASANT . PSYCHAFFECT NORMAL . LUNGS:LUNG MOHAN ARE CLEAR TO AUSCULTATION BILATERALLY. GOOD MOVEMENT OF AIR . HEART:S1, S2 IN A REGULAR RATE AND RHYTHM. NO SIGNIFICANT MURMURS, RUBS OR GALLOPS NOTED . ASSESSMENTS LUMBOSACRAL SPONDYLOLYSIS - M43.07 (PRIMARY) TREATMENT LUMBOSACRAL SPONDYLOLYSIS CONTINUE LYRICA CAPSULE, 100 MG, 1 CAPSULE, ORALLY, BID MDD2 THREE MOS. SUPPLY CAT. D CHRONIC PAIN CONTINUE HYDROCODONE-ACETAMINOPHEN TABLET, 10-325 MG, 1, ORAL, Q8H PRN MDD3 3MOS SUPPLY CAT D CHRONIC PAIN NOTES: ISTOP REGISTRY REVIEWED AND DEMONSTRATES COMPLLIANCE. BRINGS IN MEDICATIONS WHICH IS APPROPRIATE FOR WHAT WAS DISPENSED. RECENT URINE TOXICOLOGY REVIEWED. NO UNAUTHORIZED MEDICATIONS. NO ILLICIT SUBSTANCES AND PRESCRIBED MEDICATIONS WERE PRESENT. PROCEDURE CODES FA211 ESTABILISHED PATIENT [facility] FACILITY CHARGE DISPOSITION & COMMUNICATION FOLLOW UP 3 MONTHS ELECTRONICALLY SIGNED BY WAQAS JOINER, RHYS ON 06/06/2019 AT 01:29 PM EST DISCLAIMER : THIS IS A VISIT SUMMARY EXTRACTED FROM THE [employer] CHART. IT IS NOT A COPY OF THE [employer] PROGRESS NOTE. RAFAEL
== END ==
LOC: M PAIN 10:15
PROVIDERS: ATTEND Nurse Practitioner Family
DX: M43.07 Spondylolysis, lumbosacral region (principal); G89.29 Other chronic pain; E55.9 Vitamin D deficiency, unspecified; I10 Essential (primary) hypertension; Z79.82 Long term (current) use of aspirin; Z79.891 Long term (current) use of opiate analgesic; Z79.899 Other long term (current) drug therapy

== ENCOUNTER 2019-06-24 11:27 | Day surgery (SDC) | payer MEDICARE, OTHER ==
[~2019-06-24] VITALS: Ht 149.9 cm; Wt 52.8 kg
[~2019-06-24 11:27] MED LIST changes: +CORE20CA PO; +ECOT81TA5 PO; +HYDR-4517 PO; +ISOS60TA2 PO; +LIPI80TA PO; +LR 1,000 ML IV ONE; +NITR0.4S14 SL; +OCUV1CAP4 PO; +PANT40TA3 PO; +PREG100CA PO; +RANE1000 PO; +SPIR-10 PO
[2019-06-24] MEDS ORDERED: BUPIVACAINE/EPIN 0.25% 30 ML VIAL As Ordered ONE (15:56)
[2019-06-24] MEDS ORDERED: fentaNYL 100 MCG/2 ML INJECTION (J3010) As Ordered ONE (16:13)
[2019-06-24 17:30] VITALS: BP 138/66
--- NOTE | 2019-06-25 00:34 | RO ---
DATE OF PROCEDURE: 06/24/2019 PREPROCEDURE DIAGNOSIS: Right carpal tunnel syndrome. POSTPROCEDURE DIAGNOSIS: Right carpal tunnel syndrome. PROCEDURE: Right open carpal tunnel release. SURGEON: Tello Andre MD UNDERWRITER MORTGAGE LOAN: Khang Pappas who was essential during retraction, for kurtz portions of the procedure ANESTHESIA: ANTIBIOTICS: None. TOURNIQUET TIME: 6 minutes BLOOD LOSS: Minimal. INDICATIONS: An 84-year-old female who had been suffering from carpal tunnel syndrome, failed nonoperative treatment. We discussed the risks and benefits, including but not limited to infection, damage to surrounding structures, incomplete relief, patient wished to proceed. DESCRIPTION OF PROCEDURE: The patient was brought back to the operating room in the supine position, underwent moderate sedation. At that point, we had time-out to confirm site, side and surgery. Once in agreement, we injected 10 mL of 0.25% Marcaine with epinephrine proximal to the wrist and over the transverse carpal ligament. We then prepped and draped the right hand in the usual fashion. We then made a longitudinal incision along with the ulnar aspect of the 4th digit and intact with kaplans line proceeding towards the distal wrist crease. We then sharply dissected through this using senns for retraction. We encountered the transverse carpal ligament. We carefully incised the transverse carpal ligament with a 15 blade, encountering the median nerve. We then used tenotomies to go superficial and deep above the transverse carpal ligament to free it up and released it both proximally and distally, including the distal aspect and the brachial fascia, at which point we had adequate release. We irrigated the wound thoroughly, closed it with #3-0 nylon, placed the patient in a soft dressing of Adaptic gauze, Kerlix and an Ángel. Tourniquet was let down, patient awakened and taken to the post-anesthesia care unit (PACU) in stable condition. POSTOPERATIVE PLAN: The patient will work on range of motion of the fingers and wrist. Will see her at 2 weeks for clinical recheck. RAFAEL
== END 2019-06-24 17:45 | disposition home or self-care (01) ==
LOC: M SDC 11:27
PROVIDERS: ATTEND Orthopaedic Surgery Hand Surgery
DX: G56.01 Carpal tunnel syndrome, right upper limb (principal); I25.118 Atherosclerotic heart disease of native coronary artery with other forms of angina pectoris; Z95.1 Presence of aortocoronary bypass graft; I10 Essential (primary) hypertension; R60.0 Localized edema; I77.9 Disorder of arteries and arterioles, unspecified; I65.21 Occlusion and stenosis of right carotid artery; K92.2 Gastrointestinal hemorrhage, unspecified; E78.5 Hyperlipidemia, unspecified; I25.2 Old myocardial infarction; M19.041 Primary osteoarthritis, right hand; M19.042 Primary osteoarthritis, left hand; Z79.899 Other long term (current) drug therapy; Z79.82 Long term (current) use of aspirin; Z88.8 Allergy status to other drugs, medicaments and biological substances; Z95.5 Presence of coronary angioplasty implant and graft
CPT/HCPCS: 64721; J3010

== ENCOUNTER → 2019-08-19 | Outpatient (CLI) | payer MEDICARE, OTHER ==
[~2019-08-19] MED LIST changes: -LR 1,000 ML IV ONE
--- NOTE | 2019-09-06 08:16 | ECWPNPC ---
PATIENT NAME: PHYLLIS COOK : 1935 GENDER: FEMALE VISIT DATE: 08/19/2019 DISCHARGE DATE: 08/19/19 1140 VISIT LOCKED DATE TIME: PHYSICIAN: WAQAS DUPREE RESOURCE: WAQAS DUPREE REASON FOR APPOINTMENT 1. MEDICARE AB -BACK HISTORY OF PRESENT ILLNESS HISTORY OF PRESENT ILLNESS: PAIN THE PATIENT DESCRIBES THE PAIN... HERE FOR F/U OF CHRONIC LOW BACK PAIN.RATING PAIN VAS 3-5/10.OVERALL DOING OK.CONTINUES TO BENEFIT FROM CAUDAL EPIDURAL DONE IN JANUARY.FINDS CURRENT MEDICINE SOMEWHAT HELPFUL.DENIES SIDE EFFECTS. FALL RISK SCREENING: SCREENING :NO FALLS REPORTED IN THE LAST YEAR CURRENT MEDICATIONS TAKING ASPIRIN 81 MG TABLET DELAYED RELEASE 1 TABLET NEEDED ORALLY DAILY TAKING COREG CR 20 MG CAPSULE EXTENDED RELEASE 24 HOUR 1 CAP(S) ORALLY DAILY TAKING RANEXA 1000 MG TABLET EXTENDED RELEASE 12 HOUR 1 TABLET ORALLY TWICE A DAY TAKING PANTOPRAZOLE SODIUM 40 MG TABLET DELAYED RELEASE 1 TABLET ORALLY ONCE A DAY TAKING ISOSORBIDE MONONITRATE ER 60 MG TABLET EXTENDED RELEASE 24 HOUR (PRIOR AUTH: RX REF#:[id number]) ORAL TAKING LIPITOR 80 MG TABLET 1 TABLET ORALLY ONCE A DAY TAKING CALCIUM 600 + D 600-400 MG-UNIT TABLET 2 TABLET ORALLY BID TAKING VITAMIN D 1000 UNIT TABLET 1 TABLET ORALLY ONCE A DAY TAKING SPIRONOLACTONE 25 MG TABLET 1 TABLET ORALLY ONCE A DAY TAKING LUTEIN 6 MG CAPSULE 1 CAPSULE WITH A MEAL ORALLY ONCE A DAY TAKING COLACE 50 MG CAPSULE 1 CAPSULE NEEDED ORALLY ONCE A DAY TAKING ADJUST BATH/SHOWER SEAT - MISCELLANEOUS DIRECTED SHOWER SEAT S32.010D TAKING WALKER - MISCELLANEOUS DIRECTED FX L-1 FOLDING TAKING TRANSFER BENCH - MISCELLANEOUS DIRECTED SHOWER CHAIR S32.010D TAKING NITROSTAT 0.4 MG TABLET SUBLINGUAL SUBLINGUAL NEEDED, NOTES: NONE RECENTLY TAKING LYRICA 100 MG CAPSULE 1 CAPSULE ORALLY BID MDD2 THREE MOS. SUPPLY CAT. D CHRONIC PAIN TAKING HYDROCODONE-ACETAMINOPHEN 10-325 MG TABLET 1 ORAL Q8H PRN MDD3 3MOS SUPPLY CAT D CHRONIC PAIN MEDICATION LIST REVIEWED AND RECONCILED WITH THE PATIENT PAST MEDICAL HISTORY VITAMIN D DEFICIENCY ARTHRITIS ENVIRONMENTAL ALLERGIES HYPERTENSION HEART ATTACK, 2006 HX. OF VAIN ,PAPSMEAR ABNORMAL MAMMOGRAM, CAT 3 10/13 ALSO 04/14 OSTEOPENIA ELEVATED CHOLESTOEROL RIGHT SHOULDER PROBLEM,2011 GASTRIC ULCER 06/23/2013 TORN ROTATOR CUFF, AFTER A FALL RECTOCELE ,WAS TREATED WITH A PESSARY BUT COULD NOT TOLERATE IT .TIED OA BLADDER MED ,TOO MANY SIDE EFFECTS RIGHT TORN BICEP HIATAL HERNIA ALLERGIES ENVIRONMENTAL: RUNNY NOSE, SNEEZING - ALLERGY SURGICAL HISTORY BLADDER SUSPENSION/UTERUS SUSPENSION 1964 HYSTERECTOMY 1965 LAMINECTOMY 1977 BACK SURGERY 1998 SIGMOIDOSCOPY/PROCTOSCOPY 2000 RECTAL PROLAPSE SURGERY 2001 CABG 4 VESSELS 2007 CARDIAC CATH WITH 4 STENTS 2006 CARDIAC CATHS 9 TIMES WITH STENTS TOOTH EXTRACTION 07/2017 STACY TO LAD, FIRMA SEQUENTIAL TO OM AND D1, SVG TO PDA. 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 EDUCATION LEVEL OF EDUCATION:HIGH SCHOOL SOME COLLEGE DIET: REGULAR, LOW SODIUM. LANGUAGE LANGUAGES SPOKEN:URDU DOMESTIC VIOLENCE DO YOU FEEL SAFE IN YOUR ENVIRONMENT?YES RECREATIONAL DRUG USE DRUG USE?NO EXERCISE: NO REGULAR EXERCISE. LEARNING BARRIERS / SPECIAL NEEDS CHANGE FROM LAST VISIT?NO 12/23/2018 BARRIERS TO LEARNING?NO HEARING IMPAIRED?NO VISION IMPAIRED?YES COGNITIVELY IMPAIRED?NO :CORRECTIVE LENSES READINESS TO LEARN?YES LEARNING PREFERENCES?NO LEARNING CAPABILITIES PRESENT?YES EMOTIONAL BARRIERS?NO SPECIAL DEVICES?YES :CANE ENGINE MONITOR NEEDED?NO PAIN CLINIC PFS, CLERGY, PUBLIC HEALTH REFERRALS PFS REFERRAL NEEDED?NO CLERGY REFERRAL NEEDED?NO PUBLIC HEALTH REFERRAL NEEDED?NO HAS THE PATIENT BEEN EDUCATED REGARDING HIS/HER PLAN OF CARE?YES HAS THE PATIENT BEEN EDUCATED REGARDING PAIN, THE RISK FOR PAIN, THE IMPORTANCE OF EFFECTIVE PAIN MANAGEMENT, AND THE PAIN ASSESSMENT PROCESS?YES LATEX QUESTIONNAIRE LATEX ALLERGY : HAVE YOU EVER DEVELOPED ANY TYPE OF REACTION AFTER HANDLING LATEX PRODUCTS SUCH RUBBER GLOVES, CONDOMS, DIAPHRAGMS, BALLOONS, SOCKS, OR UNDERWEAR?NO LATEX ALLERGY : HAVE YOU EVER DEVELOPED ANY TYPE OF REACTION DURING OR AFTER DENTAL APPOINTMENT, VAGINAL/RECTAL EXAMINATION, SURGICAL PROCEDURE, OR ANY OTHER EXPOSURE?NO LATEX RISK : HAVE YOU EVER HAD ANY DIFFICULTY BREATHING OR HIVES AFTER EATING OR HANDLING ANY FRUITS, OR VEGETABLES; SUCH KIWI, BANANAS, STONE FRUITS, OR CHESTNUTSNO LATEX RISK : DO YOU HAVE A PREVIOUS PERSONAL HISTORY OF MORE THAN NINE SURGERIES, SPINA BIFIDA, OR REPEATED CATHERIZATIONS? NO LATEX RISK : ARE YOU FREQUENTLY EXPOSED TO LATEX PRODUCTS IN YOUR OCCUPATION?NO DATE ASKED : 10/20/2018 CAFFEINE CAFFEINE USE?YES HOW OFTEN AND HOW MUCH? 3 CUPS DAILY ADVANCE DIRECTIVE ADVANCE DIRECTIVE DISCUSSED WITH PATIENT:YES HCP,LIVING WILL, NONHOSPITAL DNR ON FILE AT [facility] RELIGIOUS NO HOAHAOISM BELIEFS THAT WOULD IMPACT HEALTH CARE. MARITAL STATUS: . ALCOHOL SCREENING DID YOU HAVE A DRINK CONTAINING ALCOHOL IN THE PAST YEAR?YES HOW OFTEN DID YOU HAVE SIX OR MORE DRINKS ON ONE OCCASION IN THE PAST YEAR?NEVER (0 POINTS) HOW MANY DRINKS DID YOU HAVE ON A TYPICAL DAY WHEN YOU WERE DRINKING IN THE PAST YEAR?1 OR 2 (0 POINTS) HOW OFTEN DID YOU HAVE A DRINK CONTAINING ALCOHOL IN THE PAST YEAR?MONTHLY OR LESS (1 POINT) POINTS1 INTERPRETATIONNEGATIVE OCCUPATION: RETIRED. SEXUAL HX HAD SEX IN THE LAST 12 MONTHS (VAGINAL, ORAL, OR ANAL)?NO HAVE YOU EVER HAD AN STD?NO DENIES SMOKING OR STREET DRUGS. DRINKS APPROXIMATELY 3-4 GLASSES OF WINE PER MONTH, OBDULIO FITCHETTEREVIEWED WITH PT 02/22/18 1125 LASREVIEWED WITH PATIENT 04/15/18 1106 JSREVIEWED WITH PT 11/30/18 1015 BVREVIEWED WITH PT 01/13/19 1115 LASREVIEWED WITH PT 02/17/19 1040 BVREVIEWED WITH PATIENT 05/20/19 1025 JSREVIEWED WITH PATIENT 08/19/2019 1111 JS. HOSPITALIZATION/MAJOR DIAGNOSTIC PROCEDURE SEE ABOVE SURGICAL HX REVIEW OF SYSTEMS REVIEWED BY: PROVIDER: WAQAS JOINER . CONSTITUTIONAL: ANY CHANGE IN YOUR MEDICAL CONDITION? NO . CHILLS NO . FEVER NO . INFECTION: DO YOU HAVE NEW INFECTIONS? NO . DO YOU HAVE HISTORY OF MRSA? NO . MUSCULOSKELETAL: ANY NEW PATTERNS OF PAIN OR NUMBNESS? NO . GASTROENTEROLOGY: ANY NEW CHANGE IN BOWEL CONTROL? NO . GENITOURINARY: ANY NEW CHANGE IN BLADDER CONTROL? NO . IS THERE A CHANCE YOU COULD BE ? NO . HEMATOLOGY/LYMPH: DO YOU TAKE ANY BLOOD THINNERS? (FOR EXAMPLE- COUMADIN, PLAVIX, AGGRENOX, PLATEL, PRADAXA, OR XARELTO) NO . WHEN WAS YOUR LAST DOSE? DATE: TIME: . NEUROLOGY: HAVE YOU FALLEN IN THE PAST 12 MONTHS? NO . ANY NEW EXTREMITY NUMBNESS OR WEAKNESS? NO . CARDIOLOGY: DO YOU HAVE A PACEMAKER OR DEFIBRILLATOR? NO . RESPIRATORY: HAVE YOU BEEN SICK IN THE PAST WEEK? NO . FEVER NO . FLU LIKE SYMPTOMS? NO . COUGH NO . INTEGUMENTARY: DO YOU HAVE ANY RASHES OR OPEN SORES? NO . ALLERGIC/IMMUNO: ARE YOU ALLERGIC TO IV DYE? NO . ANY NEW ALLERGIES? NO . PSYCHIATRIC: DO YOU HAVE THOUGHTS OF HURTING YOURSELF OR SOMEONE ELSE? NO . ARE YOU ABUSED, NEGLECTED, OR IN AN UNSAFE ENVIRONMENT? NO . ENDOCRINOLOGY: ARE YOU DIABETIC? NO . OTHER: DO YOU NEED ANY PRESCRIPTIONS? NO . IF YES, PLEASE LIST: ____ . ANY NEW PROBLEMS WITH YOUR MEDICATIONS? NO . WHEN DID YOU LAST EAT? ____ . WHEN DID YOU LAST DRINK? ____ . WHAT DID YOU LAST DRINK? ____ . NAME OF PERSON DRIVING YOU HOME? ____ . DO YOU HAVE ANY OTHER QUESTIONS OR CONCERNS NO . VITAL SIGNS WT 118.6 LBS, HT 59 IN, BMI 23.95 INDEX, BP 136/76 MM HG, HR 69 /MIN, RR 18 /MIN, TEMP 96.4 F, OXYGEN SAT % 100%, SAFE IN ENV? (Y/N) YES, NA INITIALS AW 1110, REVIEWED BY: JENNIFER. EXAMINATION GENERAL EXAMINATION: GENERALAWAKE,ALERT ,PLEAASANT . PSYCHAFFECT NORMAL . LUNGS:LUNG MOHAN ARE CLEAR TO AUSCULTATION BILATERALLY. GOOD MOVEMENT OF AIR . HEART:S1, S2 IN A REGULAR RATE AND RHYTHM. NO SIGNIFICANT MURMURS, RUBS OR GALLOPS NOTED . ASSESSMENTS LUMBOSACRAL SPONDYLOLYSIS - M43.07 (PRIMARY) TREATMENT LUMBOSACRAL SPONDYLOLYSIS CONTINUE COLACE CAPSULE, 50 MG, 1 CAPSULE NEEDED, ORALLY, ONCE A DAY CONTINUE LYRICA CAPSULE, 100 MG, 1 CAPSULE, ORALLY, BID MDD2 THREE MOS. SUPPLY CAT. D CHRONIC PAIN CONTINUE HYDROCODONE-ACETAMINOPHEN TABLET, 10-325 MG, 1, ORAL, Q8H PRN MDD3 3MOS SUPPLY CAT D CHRONIC PAIN NOTES: ISTOP REGISTRY REVIEWED AND DEMONSTRATES COMPLLIANCE. (REF # ) BRINGS IN MEDICATIONS WHICH IS APPROPRIATE FOR WHAT WAS DISPENSED. RECENT URINE TOXICOLOGY REVIEWED. NO UNAUTHORIZED MEDICATIONS. NO ILLICIT SUBSTANCES AND PRESCRIBED MEDICATIONS WERE PRESENT. PROCEDURE CODES FA211 ESTABILISHED PATIENT [facility] CHARGE DISPOSITION & COMMUNICATION FOLLOW UP 3 MONTHS ELECTRONICALLY SIGNED BY RHYS LYNCH ON 09/05/2019 AT 04:36 PM EST DISCLAIMER : THIS IS A VISIT SUMMARY EXTRACTED FROM THE [employer] CHART. IT IS NOT A COPY OF THE [employer] PROGRESS NOTE. RAFAEL
== END ==
LOC: M PAIN 10:30
PROVIDERS: ATTEND Nurse Practitioner Family
DX: M43.07 Spondylolysis, lumbosacral region (principal)

== ENCOUNTER → 2019-11-17 | Outpatient (CLI) | payer MEDICARE, OTHER ==
--- NOTE | 2019-11-22 04:48 | ECWPNPC ---
PATIENT NAME: PHYLLIS COOK : 1935 GENDER: FEMALE VISIT DATE: 11/17/2019 DISCHARGE DATE: 11/17/19839 VISIT LOCKED DATE TIME: PHYSICIAN: WAQAS DUPREE RESOURCE: WAQAS DUPREE REASON FOR APPOINTMENT 1. BACK PAT COMPLETED HISTORY OF PRESENT ILLNESS HISTORY OF PRESENT ILLNESS: PATIENT IS AGREEABLE TO TELEPHONE VISIT TODAY. REPORTING SIGNIFICANT INCREASE IN LOW BACK PAIN OVER THE PAST FEW MONTHS. FINDS HYDROCODONE 10/325 SOMEWHAT HELPFUL BUT DOESN'T FEEL IT'S WORKING WELL IT USED TO. RECENT CARDIAC STENTING AND RESTART OF PLAVIX IN SEPTEMBER. THIS WAS DONE DUE TO EPISODES OF CHEST PAIN AND SHORTNESS OF BREATH. DISCUSSED MEDICATION AND TREATMENT OPTIONS. RATING PAIN LEVEL VII/X VAS. PAIN THE PATIENT DESCRIBES THE PAIN... FALL RISK SCREENING: SCREENING :NO FALLS REPORTED IN THE LAST YEAR CURRENT MEDICATIONS TAKING PLAVIX 75 MG TABLET 1 TABLET ORALLY ONCE A DAY TAKING ASPIRIN 81 MG TABLET DELAYED RELEASE 1 TABLET NEEDED ORALLY DAILY TAKING COREG CR 20 MG CAPSULE EXTENDED RELEASE 24 HOUR 1 CAP(S) ORALLY DAILY TAKING RANEXA 1000 MG TABLET EXTENDED RELEASE 12 HOUR 1 TABLET ORALLY TWICE A DAY TAKING PANTOPRAZOLE SODIUM 40 MG TABLET DELAYED RELEASE 1 TABLET ORALLY ONCE A DAY TAKING ISOSORBIDE MONONITRATE ER 60 MG TABLET EXTENDED RELEASE 24 HOUR (PRIOR AUTH: RX REF#:[id number]) ORAL TAKING LIPITOR 80 MG TABLET 1 TABLET ORALLY ONCE A DAY TAKING CALCIUM 600 + D 600-400 MG-UNIT TABLET 2 TABLET ORALLY BID TAKING VITAMIN D 1000 UNIT TABLET 1 TABLET ORALLY ONCE A DAY TAKING SPIRONOLACTONE 25 MG TABLET 1 TABLET ORALLY ONCE A DAY TAKING LUTEIN 6 MG CAPSULE 1 CAPSULE WITH A MEAL ORALLY ONCE A DAY TAKING ADJUST BATH/SHOWER SEAT - MISCELLANEOUS DIRECTED SHOWER SEAT S32.010D TAKING WALKER - MISCELLANEOUS DIRECTED FX L-1 FOLDING TAKING TRANSFER BENCH - MISCELLANEOUS DIRECTED SHOWER CHAIR S32.010D TAKING NITROSTAT 0.4 MG TABLET SUBLINGUAL SUBLINGUAL NEEDED, NOTES: NONE RECENTLY TAKING COLACE 50 MG CAPSULE 1 CAPSULE NEEDED ORALLY ONCE A DAY TAKING HYDROCODONE-ACETAMINOPHEN 10-325 MG TABLET 1 ORAL Q8H PRN MDD3 3MOS SUPPLY CAT D CHRONIC PAIN TAKING LYRICA 100 MG CAPSULE 1 CAPSULE ORALLY BID MDD2 THREE MOS. SUPPLY CAT. D CHRONIC PAIN MEDICATION LIST REVIEWED AND RECONCILED WITH THE PATIENT PAST MEDICAL HISTORY VITAMIN D DEFICIENCY ARTHRITIS ENVIRONMENTAL ALLERGIES HYPERTENSION HEART ATTACK, 2007 HX. OF VAIN ,PAPSMEAR ABNORMAL MAMMOGRAM, CAT 3 10/13 ALSO 04/14 OSTEOPENIA ELEVATED CHOLESTOEROL RIGHT SHOULDER PROBLEM,2011 GASTRIC ULCER 06/23/2013 TORN ROTATOR CUFF, AFTER A FALL RECTOCELE ,WAS TREATED WITH A PESSARY BUT COULD NOT TOLERATE IT .TIED OA BLADDER MED ,TOO MANY SIDE EFFECTS RIGHT TORN BICEP HIATAL HERNIA ALLERGIES ENVIRONMENTAL: RUNNY NOSE, SNEEZING - ALLERGY SURGICAL HISTORY BLADDER SUSPENSION/UTERUS SUSPENSION 1964 HYSTERECTOMY 1965 LAMINECTOMY 1976 BACK SURGERY 1998 SIGMOIDOSCOPY/PROCTOSCOPY 2000 RECTAL PROLAPSE SURGERY 2001 CABG 4 VESSELS 2008 CARDIAC CATH WITH 4 STENTS 2006 CARDIAC CATHS 9 TIMES WITH STENTS TOOTH EXTRACTION 07/2017 STACY TO LAD, FIRMA SEQUENTIAL TO OM AND D1, SVG TO PDA. 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 09/06/2019 RIGHT CARPAL TUNNEL RELEASE 06/2019 LEFT CARPAL TUNNEL RELEASE 07/2019 FAMILY HISTORY FATHER: , DIAGNOSED WITH HYPERTENSION MOTHER: , HYPERTENSION SOCIAL HISTORY GENERAL: TOBACCO USE ARE YOU A:NONSMOKER NEVER SMOKER LATEX QUESTIONNAIRE LATEX ALLERGY : HAVE YOU EVER DEVELOPED ANY TYPE OF REACTION AFTER HANDLING LATEX PRODUCTS SUCH RUBBER GLOVES, CONDOMS, DIAPHRAGMS, BALLOONS, SOCKS, OR UNDERWEAR?NO LATEX ALLERGY : HAVE YOU EVER DEVELOPED ANY TYPE OF REACTION DURING OR AFTER DENTAL APPOINTMENT, VAGINAL/RECTAL EXAMINATION, SURGICAL PROCEDURE, OR ANY OTHER EXPOSURE?NO DATE ASKED : 10/20/2018 LATEX RISK : HAVE YOU EVER HAD ANY DIFFICULTY BREATHING OR HIVES AFTER EATING OR HANDLING ANY FRUITS, OR VEGETABLES; SUCH KIWI, BANANAS, STONE FRUITS, OR CHESTNUTSNO LATEX RISK : DO YOU HAVE A PREVIOUS PERSONAL HISTORY OF MORE THAN NINE SURGERIES, SPINA BIFIDA, OR REPEATED CATHERIZATIONS? NO LATEX RISK : ARE YOU FREQUENTLY EXPOSED TO LATEX PRODUCTS IN YOUR OCCUPATION?NO ALCOHOL SCREENING DID YOU HAVE A DRINK CONTAINING ALCOHOL IN THE PAST YEAR?YES HOW OFTEN DID YOU HAVE SIX OR MORE DRINKS ON ONE OCCASION IN THE PAST YEAR?NEVER (0 POINTS) HOW MANY DRINKS DID YOU HAVE ON A TYPICAL DAY WHEN YOU WERE DRINKING IN THE PAST YEAR?1 OR 2 (0 POINTS) HOW OFTEN DID YOU HAVE A DRINK CONTAINING ALCOHOL IN THE PAST YEAR?MONTHLY OR LESS (1 POINT) POINTS1 INTERPRETATIONNEGATIVE RECREATIONAL DRUG USE DRUG USE?NO CAFFEINE CAFFEINE USE?YES HOW OFTEN AND HOW MUCH? 3 CUPS DAILY SEXUAL HX HAD SEX IN THE LAST 12 MONTHS (VAGINAL, ORAL, OR ANAL)?NO HAVE YOU EVER HAD AN STD?NO HIV / HEP-C SCREENING HIV TEST OFFERED TO PATIENT:NO AGE HEP-C TEST OFFERED TO PATIENT:NO AGE ROMAN CATHOLIC ROMAN CATHOLIC NO TEMPLE BELIEFS THAT WOULD IMPACT HEALTH CARE. LANGUAGE LANGUAGES SPOKEN:PORTUGUESE EDUCATION LEVEL OF EDUCATION:HIGH SCHOOL SOME COLLEGE LEARNING BARRIERS / SPECIAL NEEDS CHANGE FROM LAST VISIT?NO 12/23/2018 BARRIERS TO LEARNING?NO HEARING IMPAIRED?NO VISION IMPAIRED?YES COGNITIVELY IMPAIRED?NO :CORRECTIVE LENSES READINESS TO LEARN?YES LEARNING PREFERENCES?NO LEARNING CAPABILITIES PRESENT?YES EMOTIONAL BARRIERS?NO SPECIAL DEVICES?YES :CANE BULK STATION AGENT NEEDED?NO DOMESTIC VIOLENCE DO YOU FEEL SAFE IN YOUR ENVIRONMENT?YES OCCUPATION: RETIRED. DIET: REGULAR, LOW SODIUM. EXERCISE: NO REGULAR EXERCISE. MARITAL STATUS: . OTHERS AT HOME: SPOUSE. NEW PATIENT PAIN DIARY TODAY'S VISIT 11/16/2019 PATIENT DESCRIBES PAIN :ACHING, IT COMES AND GOES FROM 0-10, WHAT LEVEL IS YOUR PAIN TODAY?7 PRECIPITATING FACTORS ACTIVITY, PROLONGED STANDING ALLEVIATING FACTORS REST PAIN CLINIC PFS, CLERGY, PUBLIC HEALTH REFERRALS PFS REFERRAL NEEDED?NO CLERGY REFERRAL NEEDED?NO PUBLIC HEALTH REFERRAL NEEDED?NO HAS THE PATIENT BEEN EDUCATED REGARDING HIS/HER PLAN OF CARE?YES HAS THE PATIENT BEEN EDUCATED REGARDING PAIN, THE RISK FOR PAIN, THE IMPORTANCE OF EFFECTIVE PAIN MANAGEMENT, AND THE PAIN ASSESSMENT PROCESS?YES ADVANCE DIRECTIVE ADVANCE DIRECTIVE DISCUSSED WITH PATIENT:YES HCP,LIVING WILL, NONHOSPITAL DNR ON FILE AT [facility] DENIES SMOKING OR STREET DRUGS. DRINKS APPROXIMATELY 3-4 GLASSES OF WINE PER MONTH, OBDULIO MCKEONWED WITH PT 02/17/19 1040 BVREVIEWED WITH PATIENT 05/20/19 1025 JSREVIEWED WITH PATIENT 08/19/2019 1111 JS. HOSPITALIZATION/MAJOR DIAGNOSTIC PROCEDURE SEE ABOVE SURGICAL HX REVIEW OF SYSTEMS REVIEWED BY: PROVIDER: WAQAS JOINER . CONSTITUTIONAL: ANY CHANGE IN YOUR MEDICAL CONDITION? NO . CHILLS NO . FEVER NO . INFECTION: DO YOU HAVE NEW INFECTIONS? NO . DO YOU HAVE HISTORY OF MRSA? NO . MUSCULOSKELETAL: ANY NEW PATTERNS OF PAIN OR NUMBNESS? NO . GASTROENTEROLOGY: ANY NEW CHANGE IN BOWEL CONTROL? NO . GENITOURINARY: ANY NEW CHANGE IN BLADDER CONTROL? NO . IS THERE A CHANCE YOU COULD BE ? NO . HEMATOLOGY/LYMPH: DO YOU TAKE ANY BLOOD THINNERS? (FOR EXAMPLE- COUMADIN, PLAVIX, AGGRENOX, PLATEL, PRADAXA, OR XARELTO) NO . WHEN WAS YOUR LAST DOSE? DATE: TIME: . NEUROLOGY: HAVE YOU FALLEN IN THE PAST 12 MONTHS? NO . ANY NEW EXTREMITY NUMBNESS OR WEAKNESS? NO . CARDIOLOGY: DO YOU HAVE A PACEMAKER OR DEFIBRILLATOR? STENTS X 10 . RESPIRATORY: HAVE YOU BEEN SICK IN THE PAST WEEK? NO . FEVER NO . FLU LIKE SYMPTOMS? NO . COUGH NO . INTEGUMENTARY: DO YOU HAVE ANY RASHES OR OPEN SORES? NO . ALLERGIC/IMMUNO: ARE YOU ALLERGIC TO IV DYE? NO . ANY NEW ALLERGIES? NO . PSYCHIATRIC: DO YOU HAVE THOUGHTS OF HURTING YOURSELF OR SOMEONE ELSE? NO . ARE YOU ABUSED, NEGLECTED, OR IN AN UNSAFE ENVIRONMENT? NO . ENDOCRINOLOGY: ARE YOU DIABETIC? NO . OTHER: DO YOU NEED ANY PRESCRIPTIONS? NO . IF YES, PLEASE LIST: ____ . ANY NEW PROBLEMS WITH YOUR MEDICATIONS? NO . WHEN DID YOU LAST EAT? ____ . WHEN DID YOU LAST DRINK? ____ . WHAT DID YOU LAST DRINK? ____ . NAME OF PERSON DRIVING YOU HOME? ____ . DO YOU HAVE ANY OTHER QUESTIONS OR CONCERNS YES PT RECENTLY STARTED ON PLAVIX, AND WONDERS IF SHE WOULD STILL BE ABLE TO GET INJECTIONS FOR PAIN. . ASSESSMENTS LUMBOSACRAL SPONDYLOLYSIS - M43.07 (PRIMARY) TREATMENT LUMBOSACRAL SPONDYLOLYSIS CONTINUE HYDROCODONE-ACETAMINOPHEN TABLET, 10-325 MG, 1, ORAL, Q8H PRN MDD3 3MOS SUPPLY CAT D CHRONIC PAIN CONTINUE LYRICA CAPSULE, 100 MG, 1 CAPSULE, ORALLY, BID MDD2 THREE MOS. SUPPLY CAT. D CHRONIC PAIN START TRAMADOL HCL TABLET, 50 MG, 1 TO 2 TAB, ORALLY, ONCE A DAY PRN FOR SEVERE PAIN MDD2, 30 DAYS, 30, REFILLS 1 NOTES: ISTOP REGISTRY REVIEWED AND DEMONSTRATES COMPLLIANCE. RECENT URINE TOXICOLOGY REVIEWED. NO UNAUTHORIZED MEDICATIONS. NO ILLICIT SUBSTANCES AND PRESCRIBED MEDICATIONS WERE PRESENT. DUE TO INCREASE IN PAIN DESPITE HYDROCODONE 10/325 3 TIMES DAILY ADVISED TO START TRAMADOL 50 MG 1-2 TABLETS PER DAY NEEDED. FOLLOW-UP IN PAIN CLINIC IN 3 MONTHS. TOTAL TIME SPENT DURING TELEPHONE VISIT WAS APPROXIMATELY 12 MINUTES. OTHERS NOTES: NO VITAL SIGNS TAKEN, THIS IS A VIRTUAL/PHONE VISIT. . DISPOSITION & COMMUNICATION FOLLOW UP 3 MOS IN CLINIC-MED MGMNT/UTOX (REASON: LOW BACK PAIN) ELECTRONICALLY SIGNED BY RHYS LYNCH ON 11/21/2019 AT 01:48 PM EDT DISCLAIMER : THIS IS A VISIT SUMMARY EXTRACTED FROM THE [employer] CHART. IT IS NOT A COPY OF THE [employer] PROGRESS NOTE. JOED
== END ==
LOC: M PAIN 10:00
PROVIDERS: ATTEND Nurse Practitioner Family
DX: M43.07 Spondylolysis, lumbosacral region (principal); E55.9 Vitamin D deficiency, unspecified; I10 Essential (primary) hypertension; Z95.5 Presence of coronary angioplasty implant and graft; Z79.01 Long term (current) use of anticoagulants; Z79.82 Long term (current) use of aspirin; Z79.891 Long term (current) use of opiate analgesic; Z79.899 Other long term (current) drug therapy

== ENCOUNTER → 2019-12-02 | Outpatient (CLI) | payer MEDICARE, OTHER ==
--- NOTE | 2019-12-02 16:01 | REPMRS ---
Patient History The patient states she had a clinical breast exam in November 2019. Patient is postmenopausal. Family history of lymphoma at age 64 in father. Benign excisional biopsy of the right breast, 1998. No Hormone Replacement Therapy Digital Woman Screen Mammo: December 02, 2019 - Exam #: [id number] Bilateral CC and MLO view(s) were taken. Technologist: Reina Davies Technologist Prior study comparison: October 20, 2018, bilateral digital woman screen mammo performed at [facility]. July 31, 2017, digital woman screen mammo performed at [facility]. May 01, 2016, digital woman screen mammo performed at [facility]. FINDINGS: The breast tissue is heterogeneously dense. This may lower the sensitivity of mammography. The Volpara volumetric breast density category is: C. There is a moderate amount of heterogeneously dense fibroglandular tissue which is fairly symmetric. There is no interval development of dominant mass, architectural distortion, or grouped microcalcification typical of malignancy. There has been no change in the appearance of the mammogram from the prior studies. 3-D tomosynthesis shows no additional findings. Assessment: BI-RADS/ACR category 1 mammogram. Negative Mammogram. Recommendation Routine screening mammogram of both breasts in 1 year (for women over age 40). This patient's Lifetime Breast Cancer RIsk is estimated at 0.4 %. This mammogram was interpreted with the aid of an FDA-approved computer-aided dectection system. Electronically Signed By: Campbell Abernathy MD 12/02/19 1600
== END ==
LOC: M WHC 15:03
PROVIDERS: ATTEND Nurse Practitioner Family
DX: Z12.31 Encounter for screening mammogram for malignant neoplasm of breast (principal); Z78.0 Asymptomatic menopausal state; Z80.8 Family history of malignant neoplasm of other organs or systems; Z86.018 Personal history of other benign neoplasm
CPT/HCPCS: 77063; 77067; G0463

== ENCOUNTER 2020-02-17 14:12 | Emergency (ER) | payer MEDICARE, OTHER ==
[~2020-02-17 14:12] MED LIST changes: +PANT40TA29 PO; -PANT40TA3 PO
[2020-02-17] MEDS ORDERED: NORCO, ANEXSIA 5/325MG TABLET (HYDROcodone/ACETAMINOPHEN) ONE (18:28)
[2020-02-17] MEDS ORDERED: NORCO, ANEXSIA 5/325MG TABLET (HYDROcodone/ACETAMINOPHEN) As Ordered ONE (18:28)
--- NOTE | 2020-03-21 15:01 | ECGEPIP ---
SINUS RHYTHM NORMAL ECG SEE SCANNED DOWNTIME REPORT MTDD
== END 2020-02-17 19:16 | disposition home or self-care (01) ==
LOC: M ED 14:12
DX: S29.012A Strain of muscle and tendon of back wall of thorax, initial encounter (principal); S22.060A Wedge compression fracture of T7-T8 vertebra, initial encounter for closed fracture; S22.080A Wedge compression fracture of T11-T12 vertebra, initial encounter for closed fracture; M89.8X8 Other specified disorders of bone, other site; M41.9 Scoliosis, unspecified; X58.XXXA Exposure to other specified factors, initial encounter; Y92.9 Unspecified place or not applicable; Y93.9 Activity, unspecified; Y99.9 Unspecified external cause status; I25.10 Atherosclerotic heart disease of native coronary artery without angina pectoris; I25.2 Old myocardial infarction; G89.29 Other chronic pain; M54.9 Dorsalgia, unspecified; Z95.1 Presence of aortocoronary bypass graft; Z95.5 Presence of coronary angioplasty implant and graft; Z79.82 Long term (current) use of aspirin; Z79.02 Long term (current) use of antithrombotics/antiplatelets; Z79.899 Other long term (current) drug therapy

== ENCOUNTER → 2020-03-19 | Outpatient (CLI) | payer MEDICARE, OTHER | LOC: M PAIN 11:06 | PROVIDERS: ATTEND Nurse Practitioner Family | DX: M47.816 Spondylosis without myelopathy or radiculopathy, lumbar region (principal); Z79.891 Long term (current) use of opiate analgesic ==

== ENCOUNTER → 2020-03-29 | Outpatient (CLI) | payer MEDICARE, OTHER ==
--- NOTE | 2020-04-05 07:37 | REP ---
MRI THORACIC SPINE WITHOUT CONTRAST HISTORY: Acute left thoracic pain. COMPARISON: CT study thoracic spine 02/17/2020. Radiographs of the thoracic spine 02/17/2020. TECHNIQUE: Axial and sagittal T1 and T2-weighted scans are obtained in the usual fashion with and without fat saturation. MRI FINDINGS: There is a substantial kyphoscoliosis as seen on the radiographs and the CT study. There is advanced diffuse osteopenia. Multiple wedge compression deformities are seen including loss of vertebral body height at T8, T12, L1, and L3. There is slight loss of vertebral body height at L2 and T7, as well as T4. Thoracic cord is normal in course, caliber, and signal intensity. The tip of the conus medullaris is normal in position and appearance at T12-L1. There are multiple levels of disc bulging, but no large disc protrusion is seen, and no cord compression is appreciated. On STIR images, there is T2 hyperintense marrow edema at the following levels, which may imply recent wedge compression deformity: T7, T8, and L2. There is subtle buckling of the posterior cortex of the T8 vertebral body. There is no evidence of epidural hematoma. IMPRESSION: Multiple osteoporotic wedge compression deformities most prominent involving the T8, T12, L1, and L2 vertebral bodies. Marrow edema suggesting recent compression deformities are seen at L2, T8, and T7. Kyphoscoliosis is noted. No evidence of cord compression seen. MTDD
== END ==
LOC: M RAD 11:23
PROVIDERS: ATTEND Nurse Practitioner Family
DX: M81.0 Age-related osteoporosis without current pathological fracture (principal); M51.24 Other intervertebral disc displacement, thoracic region

== ENCOUNTER → 2020-04-16 | Outpatient (CLI) | payer MEDICARE, OTHER ==
--- NOTE | 2020-04-20 04:49 | ECWPNPC ---
PATIENT NAME: PHYLLIS COOK : 1935 GENDER: FEMALE VISIT DATE: 04/16/2020 DISCHARGE DATE: 04/16/20 1158 VISIT LOCKED DATE TIME: PHYSICIAN: WAQAS DUPREE PHYSICIAN PAGER NO: ACTIVE RESOURCE: WAQAS DUPREE REASON FOR APPOINTMENT 1. REVIEW MRI BACK HISTORY OF PRESENT ILLNESS GENERAL: HERE FOR FOLLOW-UP AND REVIEW OF THORACIC MRI. FEELING MUCH BETTER. REPORTING IMPROVED SLEEP SINCE INCREASING HYDROCODONE 10/325 TO 4 TABLETS DAILY. REVIEWED MRI OF THE THORACIC SPINE WITH PATIENT AND HER . SHOWING SOME COMPRESSION FRACTURES ONE OF WHICH MAY BE NEW. REPORTS SHORTNESS OF BREATH WHEN TAKING DEEP BREATH. DENIES ANY FALL INJURIES. STATES PAIN INCREASED ABOUT 3 MONTHS AGO WHEN SHE STRETCHED BACKWARDS. REPORTING WEIGHT LOSS OVER THE PAST 6 MONTHS OF APPROXIMATELY 10 POUNDS . STATES THAT SHE DOES NOT HAVE AN APPETITE. REPORTING NORMAL BOWEL AND BLADDER FUNCTION. REVIEWED THORACIC MRI. THIS IS SHOWING SOME COMPRESSION FRACTURES. -. FALL RISK SCREENING: SCREENING :NO FALLS REPORTED IN THE LAST YEAR PAIN SCREENING: PATIENT HAS A COMPLAINT OF ACUTE OR CHRONIC PAIN :YES LOCATION OF PAIN:MID BACK, LOW BACK INTENSITY OF PAIN (SCALE OF 1 TO 10):5 WHAT DOES YOUR PAIN FEEL LIKE:SHARP DURATION:CONTINOUS PAIN IS INCREASED BY:ACTIVITIES, PROLONGED STANDING PAIN IS DECREASED BY:USE OF PAIN MEDICATIONS, OTHERS LYING DOWN NURSING NOTE: -. PAIN CENTER INTAKE QUESTIONS: DO YOU HAVE A HISTORY OF MRSA? :NO DO YOU TAKE A BLOOD THINNERS? :YES DO YOU HAVE ANY BLEEDING DISORDERS? :NO HISTORY OF UPPER GI BLEED 3 OR 4 YEARS AGO ANY NEW NUMBNESS OR WEAKNESS IN YOUR LEGS OR ARMS? :NO ANY PACEMAKER,DEFIBRILLATOR, OR DORSAL COLUMN STIMULATOR? :NO DO YOU HAVE ANY RASHES OR OPEN SORES? :NO ARE YOU ALLERGIC TO IV DYE? :NO ARE YOU DIABETIC? :NO ANY NEW PROBLEMS WITH YOUR MEDICATIONS? :NO WANTS TO DISCUSS HYDROCODONE HAVE YOU RECEIVED A VACCINE IN THE PAST 30 DAYS? :YES IF SO WHAT VACCINE AND WHEN? INFLUENZA FIRST DO YOU PLAN TO RECEIVE A VACCINE IN THE NEXT 21 DAYS? :NO DO YOU NEED ANY PRESCRIPTION? :YES HYDROCODONE DO YOU TAKE ANY IMMUNOSUPPRESSIVE MEDICATIONS? :NO IS THERE A CHANCE YOU COULD BE ? :NO ARE YOU BREAST FEEDING? :NO CURRENT MEDICATIONS TAKING PLAVIX 75 MG TABLET 1 TABLET ORALLY ONCE A DAY TAKING ASPIRIN 81 MG TABLET DELAYED RELEASE 1 TABLET NEEDED ORALLY DAILY TAKING COREG CR 20 MG CAPSULE EXTENDED RELEASE 24 HOUR 1 CAP(S) ORALLY DAILY TAKING PANTOPRAZOLE SODIUM 40 MG TABLET DELAYED RELEASE 1 TABLET ORALLY ONCE A DAY TAKING ISOSORBIDE MONONITRATE ER 60 MG TABLET EXTENDED RELEASE 24 HOUR (PRIOR AUTH: RX REF#:[id number]) ORAL ONCE A DAY TAKING LIPITOR 80 MG TABLET 1 TABLET ORALLY ONCE A DAY TAKING CALCIUM 600 + D 600-400 MG-UNIT TABLET 2 TABLET ORALLY BID TAKING VITAMIN D 1000 UNIT TABLET 1 TABLET ORALLY ONCE A DAY TAKING SPIRONOLACTONE 25 MG TABLET 1 TABLET ORALLY ONCE A DAY TAKING LUTEIN 6 MG CAPSULE 1 CAPSULE WITH A MEAL ORALLY ONCE A DAY TAKING ADJUST BATH/SHOWER SEAT - MISCELLANEOUS DIRECTED SHOWER SEAT S32.010D TAKING WALKER - MISCELLANEOUS DIRECTED FX L-1 FOLDING TAKING TRANSFER BENCH - MISCELLANEOUS DIRECTED SHOWER CHAIR S32.010D TAKING NITROSTAT 0.4 MG TABLET SUBLINGUAL SUBLINGUAL NEEDED, NOTES: NONE RECENTLY TAKING COLACE 50 MG CAPSULE 1 CAPSULE NEEDED ORALLY ONCE A DAY TAKING HYDROCODONE-ACETAMINOPHEN 10-325 MG TABLET 1 ORAL EVERY 6 HRS NEEDED TAKING LYRICA 100 MG CAPSULE 1 CAPSULE ORALLY BID MDD2 THREE MOS. SUPPLY CAT. D CHRONIC PAIN NOT-TAKING RANEXA 1000 MG TABLET EXTENDED RELEASE 12 HOUR 1 TABLET ORALLY TWICE A DAY NOT-TAKING TRAMADOL HCL 50 MG TABLET 1 TO 2 TAB ORALLY ONCE A DAY PRN FOR SEVERE PAIN MDD2 MEDICATION LIST REVIEWED AND RECONCILED WITH THE PATIENT PAST MEDICAL HISTORY VITAMIN D DEFICIENCY ARTHRITIS ENVIRONMENTAL ALLERGIES HYPERTENSION HEART ATTACK, 2006 HX. OF VAIN ,PAPSMEAR ABNORMAL MAMMOGRAM, CAT 3 10/13 ALSO 04/14 OSTEOPENIA ELEVATED CHOLESTOEROL RIGHT SHOULDER PROBLEM,2011 GASTRIC ULCER 06/23/2013 TORN ROTATOR CUFF, AFTER A FALL RECTOCELE ,WAS TREATED WITH A PESSARY BUT COULD NOT TOLERATE IT .TIED OA BLADDER MED ,TOO MANY SIDE EFFECTS RIGHT TORN BICEP HIATAL HERNIA ALLERGIES ENVIRONMENTAL: RUNNY NOSE, SNEEZING - ALLERGY SURGICAL HISTORY BLADDER SUSPENSION/UTERUS SUSPENSION 1964 HYSTERECTOMY 1965 LAMINECTOMY 1977 BACK SURGERY 1998 SIGMOIDOSCOPY/PROCTOSCOPY 2000 RECTAL PROLAPSE SURGERY 2001 CABG 4 VESSELS 2008 CARDIAC CATH WITH 4 STENTS 2006 CARDIAC CATHS 9 TIMES WITH STENTS TOOTH EXTRACTION 07/2017 STACY TO LAD, FIRMA SEQUENTIAL TO OM AND D1, SVG TO PDA. 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 09/06/2019 RIGHT CARPAL TUNNEL RELEASE 06/2019 LEFT CARPAL TUNNEL RELEASE 07/2019 FAMILY HISTORY FATHER: , DIAGNOSED WITH HYPERTENSION MOTHER: , HYPERTENSION SOCIAL HISTORY GENERAL: TOBACCO USE ARE YOU A:NONSMOKER NEVER SMOKER LATEX QUESTIONNAIRE LATEX ALLERGY : HAVE YOU EVER DEVELOPED ANY TYPE OF REACTION AFTER HANDLING LATEX PRODUCTS SUCH RUBBER GLOVES, CONDOMS, DIAPHRAGMS, BALLOONS, SOCKS, OR UNDERWEAR?NO LATEX ALLERGY : HAVE YOU EVER DEVELOPED ANY TYPE OF REACTION DURING OR AFTER DENTAL APPOINTMENT, VAGINAL/RECTAL EXAMINATION, SURGICAL PROCEDURE, OR ANY OTHER EXPOSURE?NO DATE ASKED : 10/20/2018 LATEX RISK : HAVE YOU EVER HAD ANY DIFFICULTY BREATHING OR HIVES AFTER EATING OR HANDLING ANY FRUITS, OR VEGETABLES; SUCH KIWI, BANANAS, STONE FRUITS, OR CHESTNUTSNO LATEX RISK : DO YOU HAVE A PREVIOUS PERSONAL HISTORY OF MORE THAN NINE SURGERIES, SPINA BIFIDA, OR REPEATED CATHERIZATIONS? YES - PLEASE INDICATE : > 9 SURGERIES LATEX RISK : ARE YOU FREQUENTLY EXPOSED TO LATEX PRODUCTS IN YOUR OCCUPATION?NO LUNG CANCER SCREENING SMOKING STATUS:NON SMOKER ALCOHOL SCREENING DID YOU HAVE A DRINK CONTAINING ALCOHOL IN THE PAST YEAR?YES HOW OFTEN DID YOU HAVE SIX OR MORE DRINKS ON ONE OCCASION IN THE PAST YEAR?NEVER (0 POINTS) HOW MANY DRINKS DID YOU HAVE ON A TYPICAL DAY WHEN YOU WERE DRINKING IN THE PAST YEAR?1 OR 2 (0 POINTS) HOW OFTEN DID YOU HAVE A DRINK CONTAINING ALCOHOL IN THE PAST YEAR?MONTHLY OR LESS (1 POINT) POINTS1 INTERPRETATIONNEGATIVE RECREATIONAL DRUG USE DRUG USE?NO CAFFEINE CAFFEINE USE?YES HOW OFTEN AND HOW MUCH? 3 CUPS DAILY SEXUAL HX HAD SEX IN THE LAST 12 MONTHS (VAGINAL, ORAL, OR ANAL)?NO HAVE YOU EVER HAD AN STD?NO HIV / HEP-C SCREENING HIV TEST OFFERED TO PATIENT:NO AGE HEP-C TEST OFFERED TO PATIENT:NO AGE ZOROASTRIANISM ZOROASTRIANISM NO SAMARITAN BELIEFS THAT WOULD IMPACT HEALTH CARE. LANGUAGE LANGUAGES SPOKEN:CUBAN EDUCATION LEVEL OF EDUCATION:HIGH SCHOOL SOME COLLEGE LEARNING BARRIERS / SPECIAL NEEDS CHANGE FROM LAST VISIT?NO 12/20/2019 BARRIERS TO LEARNING?NO HEARING IMPAIRED?NO VISION IMPAIRED?YES COGNITIVELY IMPAIRED?NO :CORRECTIVE LENSES READINESS TO LEARN?YES LEARNING PREFERENCES?NO LEARNING CAPABILITIES PRESENT?YES EMOTIONAL BARRIERS?NO SPECIAL DEVICES?YES :CANE BRAZER RESISTANCE NEEDED?NO DOMESTIC VIOLENCE DO YOU FEEL SAFE IN YOUR ENVIRONMENT?YES OCCUPATION: RETIRED. DIET: REGULAR, LOW SODIUM. EXERCISE: NO REGULAR EXERCISE. MARITAL STATUS: . OTHERS AT HOME: SPOUSE. NEW PATIENT PAIN DIARY TODAY'S VISIT 11/16/2019 PATIENT DESCRIBES PAIN :ACHING, IT COMES AND GOES FROM 0-10, WHAT LEVEL IS YOUR PAIN TODAY?7 PRECIPITATING FACTORS ACTIVITY, PROLONGED STANDING ALLEVIATING FACTORS REST PAIN CLINIC PFS, CLERGY, PUBLIC HEALTH REFERRALS PFS REFERRAL NEEDED?NO CLERGY REFERRAL NEEDED?NO PUBLIC HEALTH REFERRAL NEEDED?NO HAS THE PATIENT BEEN EDUCATED REGARDING HIS/HER PLAN OF CARE?YES HAS THE PATIENT BEEN EDUCATED REGARDING PAIN, THE RISK FOR PAIN, THE IMPORTANCE OF EFFECTIVE PAIN MANAGEMENT, AND THE PAIN ASSESSMENT PROCESS?YES ADVANCE DIRECTIVE ADVANCE DIRECTIVE DISCUSSED WITH PATIENT:YES HCP,LIVING WILL, NONHOSPITAL DNR ON FILE AT [facility] DENIES SMOKING OR STREET DRUGS. DRINKS APPROXIMATELY 3-4 GLASSES OF WINE PER MONTH, OBDULIO GREENTTERREVIEWED WITH PT 02/17/19 1040 BVREVIEWED WITH PATIENT 05/20/19 1025 JSREVIEWED WITH PATIENT 08/19/2019 1111 JS. HOSPITALIZATION/MAJOR DIAGNOSTIC PROCEDURE SEE ABOVE SURGICAL HX REVIEW OF SYSTEMS REVIEWED BY: PROVIDER: WAQAS JOINER . CONSTITUTIONAL: ANY CHANGE IN YOUR MEDICAL CONDITION? NO . CHILLS NO . FEVER NO . INFECTION: DO YOU HAVE NEW INFECTIONS? NO . DO YOU HAVE HISTORY OF MRSA? NO . MUSCULOSKELETAL: ANY UNUSUAL JOINT PAIN OR SWELLING NOT MENTIONED NO . GASTROENTEROLOGY: ANY NEW CHANGE IN BOWEL CONTROL? NO . GENITOURINARY: ANY NEW CHANGE IN BLADDER CONTROL? NO . IS THERE A CHANCE YOU COULD BE ? NO . HEMATOLOGY/LYMPH: DO YOU TAKE ANY BLOOD THINNERS? (FOR EXAMPLE- COUMADIN, PLAVIX, AGGRENOX, PLATEL, PRADAXA, OR XARELTO) NO . WHEN WAS YOUR LAST DOSE? DATE: TIME: . NEUROLOGY: HAVE YOU FALLEN IN THE PAST 12 MONTHS? NO . OTHER NEW NUMBNESS OR PAIN PATTERNS NOT MENTIONED NO . CARDIOLOGY: DO YOU HAVE A PACEMAKER OR DEFIBRILLATOR? STENTS X 10 . RESPIRATORY: HAVE YOU BEEN SICK IN THE PAST WEEK? NO . FEVER NO . FLU LIKE SYMPTOMS? NO . COUGH NO . INTEGUMENTARY: DO YOU HAVE ANY RASHES OR OPEN SORES? NO . ALLERGIC/IMMUNO: ARE YOU ALLERGIC TO IV DYE? NO . ANY NEW ALLERGIES? NO . PSYCHIATRIC: DO YOU HAVE THOUGHTS OF HURTING YOURSELF OR SOMEONE ELSE? NO . ARE YOU ABUSED, NEGLECTED, OR IN AN UNSAFE ENVIRONMENT? NO . ENDOCRINOLOGY: ARE YOU DIABETIC? NO . OTHER: DO YOU NEED ANY PRESCRIPTIONS? NO . IF YES, PLEASE LIST: ____ . ANY NEW PROBLEMS WITH YOUR MEDICATIONS? NO . WHEN DID YOU LAST EAT? ____ . WHEN DID YOU LAST DRINK? ____ . WHAT DID YOU LAST DRINK? ____ . NAME OF PERSON DRIVING YOU HOME? ____ . DO YOU HAVE ANY OTHER QUESTIONS OR CONCERNS YES PT RECENTLY STARTED ON PLAVIX, AND WONDERS IF SHE WOULD STILL BE ABLE TO GET INJECTIONS FOR PAIN. . VITAL SIGNS WT 111.0 LBS, HT 59 IN, BMI 22.42 INDEX, BP 168/81 MM HG, HR 71 /MIN, RR 18 /MIN, TEMP 97.3 F, OXYGEN SAT % 100%, NA INITIALS AW 1102, REVIEWED BY: AN. EXAMINATION GENERAL EXAMINATION: GENERALAWAKE,ALERT ,PLEAASANT . PSYCHAFFECT NORMAL . LUNGS:LUNG MOHAN ARE CLEAR TO AUSCULTATION BILATERALLY. GOOD MOVEMENT OF AIR . HEART:S1, S2 IN A REGULAR RATE AND RHYTHM. NO SIGNIFICANT MURMURS, RUBS OR GALLOPS NOTED . 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 (REF # ) BRINGS IN MEDICATIONS WHICH IS APPROPRIATE FOR WHAT WAS DISPENSED. RECENT URINE TOXICOLOGY REVIEWED. NO UNAUTHORIZED MEDICATIONS. NO ILLICIT SUBSTANCES AND PRESCRIBED MEDICATIONS WERE PRESENT. , RISKS OF NARCOTIC/OPIOD MEDICATIONS INCLUDES BUT IS NOT LIMITED TO RISK OF DEPENDANCE/DEVELOPMENT OF ADDICTION, MOOD DISTURBANCE AND DEPRESSION, OSTEOPOROSIS, HORMONAL AND LABIDAL CHANGES, RESPIRATORY DEPRESSION AND . PATIENT IS ADVISED NOT TO DRIVE OR DRINK ALCOHOL WHILE ON THESE MEDICATIONS. PROCEDURE CODES FA211 ESTABILISHED PATIENT [facility] CHARGE DISPOSITION & COMMUNICATION FOLLOW UP 3 MONTHS (REASON: REVIEW CT OF THE CHEST/MED MANAGEMENT/URINE TOX) ELECTRONICALLY SIGNED BY RHYS LYNCH ON 04/19/2020 AT 01:39 PM EDT DISCLAIMER : THIS IS A VISIT SUMMARY EXTRACTED FROM THE [employer] CHART. IT IS NOT A COPY OF THE [employer] PROGRESS NOTE. JOED
== END ==
LOC: M PAIN 10:30
PROVIDERS: ATTEND Nurse Practitioner Family
DX: M43.07 Spondylolysis, lumbosacral region (principal); M48.54XG Collapsed vertebra, not elsewhere classified, thoracic region, subsequent encounter for fracture with delayed healing; E55.9 Vitamin D deficiency, unspecified; J30.9 Allergic rhinitis, unspecified; I10 Essential (primary) hypertension; I25.2 Old myocardial infarction; E78.00 Pure hypercholesterolemia, unspecified; K44.9 Diaphragmatic hernia without obstruction or gangrene; Z79.02 Long term (current) use of antithrombotics/antiplatelets; Z79.82 Long term (current) use of aspirin; Z79.891 Long term (current) use of opiate analgesic; Z79.899 Other long term (current) drug therapy

== ENCOUNTER → 2020-07-17 | Outpatient (CLI) | payer MEDICARE, OTHER ==
--- NOTE | 2020-07-19 07:43 | ECWPNPC ---
PATIENT NAME: PHYLLIS COOK : 1935 GENDER: FEMALE VISIT DATE: 07/17/2020 DISCHARGE DATE: 07/17/20 1216 VISIT LOCKED DATE TIME: PHYSICIAN: WAQAS DUPREE PHYSICIAN PAGER NO: ACTIVE RESOURCE: WAQSA DUPREE REASON FOR APPOINTMENT 1. REVIEW CT OF THE CHEST/MED MANAGEMENT/URINE TOX HISTORY OF PRESENT ILLNESS GENERAL: HERE FOR ROUTINE FOLLOW-UP AND MEDICATION MANAGEMENT OF CHRONIC THORACIC AND LOW BACK PAIN. CT SCAN I ORDERED AT HER LAST VISIT IS REVIEWED. IT IS WITHIN NORMAL LIMITS. CONTINUES TO DO WELL ON CURRENT MEDICATION REGIMEN. DENIES ADVERSE SIDE EFFECTS WITH MEDICATION. -. FALL RISK SCREENING: SCREENING :NO FALLS REPORTED IN THE LAST YEAR PAIN SCREENING: PATIENT HAS A COMPLAINT OF ACUTE OR CHRONIC PAIN :YES LOCATION OF PAIN:LOW BACK INTENSITY OF PAIN (SCALE OF 1 TO 10):4 WHAT DOES YOUR PAIN FEEL LIKE:ACHING DURATION:PERIODIC PAIN IS INCREASED BY:PROLONGED STANDING, OTHERS LAYING DOWN PAIN IS DECREASED BY:USE OF PAIN MEDICATIONS TREATMENT/MEDICATIONS USED TO MANAGE PAIN:OPIOIDS LEVEL OF RELIEF FROM PAIN TREATMENTS IN THE PAST:50% PAIN HAS INTERFERED WITH THE FOLLOWING:BATHING/DRESSING, WALKING ABILITY NURSING NOTE: -. PAIN CENTER INTAKE QUESTIONS: DO YOU HAVE A HISTORY OF MRSA? :NO DO YOU TAKE A BLOOD THINNERS? :YES PLAVIX DO YOU HAVE ANY BLEEDING DISORDERS? :NO ANY NEW NUMBNESS OR WEAKNESS IN YOUR LEGS OR ARMS? :NO ANY PACEMAKER,DEFIBRILLATOR, OR DORSAL COLUMN STIMULATOR? :NO DO YOU HAVE ANY RASHES OR OPEN SORES? :NO ARE YOU ALLERGIC TO IV DYE? :NO ARE YOU DIABETIC? :NO ANY NEW PROBLEMS WITH YOUR MEDICATIONS? :NO HAVE YOU RECEIVED A VACCINE IN THE PAST 30 DAYS? :NO DO YOU PLAN TO RECEIVE A VACCINE IN THE NEXT 21 DAYS? :NO DO YOU NEED ANY PRESCRIPTION? :NO DO YOU TAKE ANY IMMUNOSUPPRESSIVE MEDICATIONS? :NO IS THERE A CHANCE YOU COULD BE ? :NO ARE YOU BREAST FEEDING? :NO CURRENT MEDICATIONS TAKING HYDROCODONE-ACETAMINOPHEN 10-325 MG TABLET 1 ORAL 1 TABLET EVERY 6 HOURS NEEDED FOR SEVERE PAIN EPISODES MDD FOR 3 MONTH SUPPLY CATEGORY D CHRONIC PAIN TAKING LYRICA 100 MG CAPSULE 1 CAPSULE ORALLY BID MDD2 THREE MOS. SUPPLY CAT. D CHRONIC PAIN TAKING COLACE 50 MG CAPSULE 1 CAPSULE NEEDED ORALLY ONCE A DAY TAKING NITROSTAT 0.4 MG TABLET SUBLINGUAL SUBLINGUAL NEEDED, NOTES: NONE RECENTLY TAKING TRANSFER BENCH - MISCELLANEOUS DIRECTED SHOWER CHAIR S32.010D TAKING WALKER - MISCELLANEOUS DIRECTED FX L-1 FOLDING TAKING ADJUST BATH/SHOWER SEAT - MISCELLANEOUS DIRECTED SHOWER SEAT S32.010D TAKING LUTEIN 6 MG CAPSULE 1 CAPSULE WITH A MEAL ORALLY ONCE A DAY TAKING VITAMIN D 1000 UNIT TABLET 1 TABLET ORALLY ONCE A DAY TAKING CALCIUM 600 + D 600-400 MG-UNIT TABLET 2 TABLET ORALLY BID TAKING LIPITOR 80 MG TABLET 1 TABLET ORALLY ONCE A DAY TAKING ISOSORBIDE MONONITRATE ER 60 MG TABLET EXTENDED RELEASE 24 HOUR (PRIOR AUTH: RX REF#:[id number]) ORAL ONCE A DAY TAKING PANTOPRAZOLE SODIUM 40 MG TABLET DELAYED RELEASE 1 TABLET ORALLY ONCE A DAY TAKING COREG CR 20 MG CAPSULE EXTENDED RELEASE 24 HOUR 1 CAP(S) ORALLY DAILY TAKING ASPIRIN 81 MG TABLET DELAYED RELEASE 1 TABLET NEEDED ORALLY DAILY TAKING PLAVIX 75 MG TABLET 1 TABLET ORALLY ONCE A DAY MEDICATION LIST REVIEWED AND RECONCILED WITH THE PATIENT PAST MEDICAL HISTORY VITAMIN D DEFICIENCY ARTHRITIS ENVIRONMENTAL ALLERGIES HYPERTENSION HEART ATTACK, 2007 HX. OF VAIN ,PAPSMEAR ABNORMAL MAMMOGRAM, CAT 3 10/13 ALSO 04/14 OSTEOPENIA ELEVATED CHOLESTOEROL RIGHT SHOULDER PROBLEM,2011 GASTRIC ULCER 06/23/2013 TORN ROTATOR CUFF, AFTER A FALL RECTOCELE ,WAS TREATED WITH A PESSARY BUT COULD NOT TOLERATE IT .TIED OA BLADDER MED ,TOO MANY SIDE EFFECTS RIGHT TORN BICEP HIATAL HERNIA ALLERGIES ENVIRONMENTAL: RUNNY NOSE, SNEEZING - ALLERGY SURGICAL HISTORY BLADDER SUSPENSION/UTERUS SUSPENSION 1964 HYSTERECTOMY 1965 LAMINECTOMY 1977 BACK SURGERY 1998 SIGMOIDOSCOPY/PROCTOSCOPY 2000 RECTAL PROLAPSE SURGERY 2001 CABG 4 VESSELS 2008 CARDIAC CATH WITH 4 STENTS 2006 CARDIAC CATHS 9 TIMES WITH STENTS TOOTH EXTRACTION 07/2017 STACY TO LAD, FIRMA SEQUENTIAL TO OM AND D1, SVG TO PDA. 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 09/06/2019 RIGHT CARPAL TUNNEL RELEASE 06/2019 LEFT CARPAL TUNNEL RELEASE 07/2019 FAMILY HISTORY FATHER: , DIAGNOSED WITH HYPERTENSION MOTHER: , HYPERTENSION SOCIAL HISTORY GENERAL: TOBACCO USE ARE YOU A:NONSMOKER NEVER SMOKER LATEX QUESTIONNAIRE LATEX ALLERGY : HAVE YOU EVER DEVELOPED ANY TYPE OF REACTION AFTER HANDLING LATEX PRODUCTS SUCH RUBBER GLOVES, CONDOMS, DIAPHRAGMS, BALLOONS, SOCKS, OR UNDERWEAR?NO LATEX ALLERGY : HAVE YOU EVER DEVELOPED ANY TYPE OF REACTION DURING OR AFTER DENTAL APPOINTMENT, VAGINAL/RECTAL EXAMINATION, SURGICAL PROCEDURE, OR ANY OTHER EXPOSURE?NO LATEX RISK : HAVE YOU EVER HAD ANY DIFFICULTY BREATHING OR HIVES AFTER EATING OR HANDLING ANY FRUITS, OR VEGETABLES; SUCH KIWI, BANANAS, STONE FRUITS, OR CHESTNUTSNO LATEX RISK : DO YOU HAVE A PREVIOUS PERSONAL HISTORY OF MORE THAN NINE SURGERIES, SPINA BIFIDA, OR REPEATED CATHERIZATIONS? YES - PLEASE INDICATE : > 9 SURGERIES LATEX RISK : ARE YOU FREQUENTLY EXPOSED TO LATEX PRODUCTS IN YOUR OCCUPATION?NO DATE ASKED : 07/17/2020 LUNG CANCER SCREENING SMOKING STATUS:NON SMOKER ALCOHOL SCREENING DID YOU HAVE A DRINK CONTAINING ALCOHOL IN THE PAST YEAR?YES HOW OFTEN DID YOU HAVE SIX OR MORE DRINKS ON ONE OCCASION IN THE PAST YEAR?NEVER (0 POINTS) HOW MANY DRINKS DID YOU HAVE ON A TYPICAL DAY WHEN YOU WERE DRINKING IN THE PAST YEAR?1 OR 2 (0 POINTS) HOW OFTEN DID YOU HAVE A DRINK CONTAINING ALCOHOL IN THE PAST YEAR?MONTHLY OR LESS (1 POINT) POINTS1 INTERPRETATIONNEGATIVE RECREATIONAL DRUG USE DRUG USE?NO CAFFEINE CAFFEINE USE?YES HOW OFTEN AND HOW MUCH? 3 CUPS DAILY SEXUAL HX HAD SEX IN THE LAST 12 MONTHS (VAGINAL, ORAL, OR ANAL)?NO HAVE YOU EVER HAD AN STD?NO HIV / HEP-C SCREENING HIV TEST OFFERED TO PATIENT:NO AGE HEP-C TEST OFFERED TO PATIENT:NO AGE BUDDHISM BUDDHISM NO CAODAISM BELIEFS THAT WOULD IMPACT HEALTH CARE. LANGUAGE LANGUAGES SPOKEN:CROATIAN EDUCATION LEVEL OF EDUCATION:HIGH SCHOOL SOME COLLEGE LEARNING BARRIERS / SPECIAL NEEDS CHANGE FROM LAST VISIT?NO BARRIERS TO LEARNING?NO HEARING IMPAIRED?NO VISION IMPAIRED?YES :CORRECTIVE LENSES COGNITIVELY IMPAIRED?NO READINESS TO LEARN?YES LEARNING PREFERENCES?NO LEARNING CAPABILITIES PRESENT?YES EMOTIONAL BARRIERS?NO SPECIAL DEVICES?YES :CANE WOOD PRESERVING PLANT LABORER NEEDED?NO DOMESTIC VIOLENCE DO YOU FEEL SAFE IN YOUR ENVIRONMENT?YES OCCUPATION: RETIRED. DIET: REGULAR, LOW SODIUM. EXERCISE: NO REGULAR EXERCISE. MARITAL STATUS: . OTHERS AT HOME: SPOUSE. TODAY'S VISIT 11/16/2019 PATIENT DESCRIBES PAIN :ACHING, IT COMES AND GOES FROM 0-10, WHAT LEVEL IS YOUR PAIN TODAY?7 PRECIPITATING FACTORS ACTIVITY, PROLONGED STANDING ALLEVIATING FACTORS REST PAIN CLINIC PFS, CLERGY, PUBLIC HEALTH REFERRALS PFS REFERRAL NEEDED?NO CLERGY REFERRAL NEEDED?NO PUBLIC HEALTH REFERRAL NEEDED?NO HAS THE PATIENT BEEN EDUCATED REGARDING HIS/HER PLAN OF CARE?YES HAS THE PATIENT BEEN EDUCATED REGARDING PAIN, THE RISK FOR PAIN, THE IMPORTANCE OF EFFECTIVE PAIN MANAGEMENT, AND THE PAIN ASSESSMENT PROCESS?YES ADVANCE DIRECTIVE ADVANCE DIRECTIVE DISCUSSED WITH PATIENT:YES HCP,LIVING WILL, NONHOSPITAL DNR ON FILE AT [facility] DENIES SMOKING OR STREET DRUGS. DRINKS APPROXIMATELY 3-4 GLASSES OF WINE PER MONTH, OBDULIO LEWISPHILTTERREVIEWED WITH PT 02/17/19 1040 BVREVIEWED WITH PATIENT 05/20/19 1025 JSREVIEWED WITH PATIENT 08/19/2019 1111 JS. HOSPITALIZATION/MAJOR DIAGNOSTIC PROCEDURE SEE ABOVE SURGICAL HX REVIEW OF SYSTEMS CONSTITUTIONAL: ANY RECENT FEVER NO . CHILLS NO . WEIGHT CHANGE OF UNKNOWN REASONS NO . GASTROENTEROLOGY: NEW UNEXPLAINABLE CHANGES IN BOWEL CONTROL NO . CONSTIPATION NO . GENITOURINARY: ANY NEW CHANGE IN BLADDER CONTROL? NO . NEUROLOGY: NEW ONSET DIZZINESS OR NEUROLOGICAL CHANGES NOT MENTIONED NO . NEW NUMBNESS OR PAIN PATTERNS NOT MENTIONED AND PERTINENT TO TODAY'S VISIT NO . CARDIOLOGY: NEW CHEST PRESSURE NO . NEW CHEST PAIN NO . RESPIRATORY: UNEXPLAINABLE COUGH NO . NEW SHORTNESS OF BREATH NO . VITAL SIGNS WT 114.6 LBS, HT 59 IN, BMI 23.14 INDEX, BP 161/20 MM HG, HR 71 /MIN, RR 18 /MIN, TEMP 97.5 F, OXYGEN SAT % 100%, BLOOD GLUCOSE LEVEL NA, SAFE IN ENV? (Y/N) YES, REVIEWED BY: MANINDER FARAH. EXAMINATION GENERAL EXAMINATION: GENERALAWAKE,ALERT ,PLEAASANT . PSYCHAFFECT NORMAL . LUNGS:LUNG MOHAN ARE CLEAR TO AUSCULTATION BILATERALLY. GOOD MOVEMENT OF AIR . HEART:S1, S2 IN A REGULAR RATE AND RHYTHM. NO SIGNIFICANT MURMURS, RUBS OR GALLOPS NOTED . 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 SUPPLY CAT. D CHRONIC PAIN CONTINUE COLACE CAPSULE, 50 MG, 1 CAPSULE NEEDED, ORALLY, ONCE A DAY NOTES: ISTOP REGISTRY REVIEWED AND DEMONSTRATES COMPLLIANCE. RECENT URINE TOXICOLOGY REVIEWED. NO UNAUTHORIZED MEDICATIONS. NO ILLICIT SUBSTANCES AND PRESCRIBED MEDICATIONS WERE PRESENT. URINE TOX TODAY BRING IN PAIN MEDICATION TO ALL PAIN CLINIC APPOINTMENTS. PROCEDURE CODES FA211 ESTABILISHED PATIENT [facility] CHARGE DISPOSITION & COMMUNICATION FOLLOW UP 3 MONTHS (REASON: MEDICATION MANAGEMENT/PILL COUNT IDENTIFICATION/REVIEW URINE TOXICOLOGY) ELECTRONICALLY SIGNED BY RHYS LYNCH ON 07/18/2020 AT 02:23 PM EST DISCLAIMER : THIS IS A VISIT SUMMARY EXTRACTED FROM THE [employer] CHART. IT IS NOT A COPY OF THE [employer] PROGRESS NOTE. RAFAEL
== END ==
LOC: M PAIN 10:30
PROVIDERS: ATTEND Nurse Practitioner Family
DX: M43.07 Spondylolysis, lumbosacral region (principal); G89.29 Other chronic pain; E55.9 Vitamin D deficiency, unspecified; Z95.5 Presence of coronary angioplasty implant and graft; Z79.82 Long term (current) use of aspirin; Z79.899 Other long term (current) drug therapy

== ENCOUNTER → 2020-10-15 | Outpatient (CLI) | payer MEDICARE, OTHER ==
[~2020-10-15] MED LIST changes: +ISOS1TAB36 PO; -ISOS60TA2 PO
--- NOTE | 2020-10-17 05:19 | ECWPNPC ---
PATIENT NAME: PHYLLIS COOK : 1935 GENDER: FEMALE VISIT DATE: 10/15/2020 DISCHARGE DATE: 10/15/20 1128 VISIT LOCKED DATE TIME: PHYSICIAN: WAQAS DUPREE PHYSICIAN PAGER NO: ACTIVE RESOURCE: WAQAS DUPREE REASON FOR APPOINTMENT 1. MEDICATION MANAGEMENT/PILL COUNT IDENTIFICATION/REVIEW URINE TOXICOLOGY HISTORY OF PRESENT ILLNESS GENERAL: HERE FOR FOLLOW-UP OF CHRONIC LOW BACK PAIN. PATIENT REPORTS SIGNIFICANT INCREASE IN LOW BACK PAIN AND BILATERAL LEG NUMBNESS AND PAIN ESPECIALLY WITH STANDING OR WALKING. HISTORY OF 2 BACK SURGERIES IN THE DISTANT PAST. HAS SEVERE OSTEOPOROSIS. REVIEWED MEDICATION AND DISCUSSED TREATMENT PLAN. -. FALL RISK SCREENING: SCREENING : NO FALLS REPORTED IN THE LAST YEAR. PAIN SCREENING: PATIENT HAS A COMPLAINT OF ACUTE OR CHRONIC PAIN :YES LOCATION OF PAIN:LOW BACK, LEG(S) INTENSITY OF PAIN (SCALE OF 1 TO 10):5 WHAT DOES YOUR PAIN FEEL LIKE:OTHER STATES THAT " IT JUST HURTS " DURATION:INTERMITTENT PAIN IS INCREASED BY:ACTIVITIES, PROLONGED STANDING PAIN IS DECREASED BY:OTHERS LAYING DOWN NURSING NOTE: -. PAIN CENTER INTAKE QUESTIONS: DO YOU HAVE A HISTORY OF MRSA? :NO DO YOU TAKE A BLOOD THINNERS? :YES PLAVIX DO YOU HAVE ANY BLEEDING DISORDERS? :NO ANY NEW NUMBNESS OR WEAKNESS IN YOUR LEGS OR ARMS? :YES NUMBNESS GOES DOWN INTO BOTH LEGS ANY PACEMAKER,DEFIBRILLATOR, OR DORSAL COLUMN STIMULATOR? :NO DO YOU HAVE ANY RASHES OR OPEN SORES? :NO ARE YOU ALLERGIC TO IV DYE? :NO ARE YOU DIABETIC? :NO ANY NEW PROBLEMS WITH YOUR MEDICATIONS? :NO HAVE YOU RECEIVED A VACCINE IN THE PAST 30 DAYS? :NO DO YOU PLAN TO RECEIVE A VACCINE IN THE NEXT 21 DAYS? :NO DO YOU NEED ANY PRESCRIPTION? :NO DO YOU TAKE ANY IMMUNOSUPPRESSIVE MEDICATIONS? :NO IS THERE A CHANCE YOU COULD BE ? :NO ARE YOU BREAST FEEDING? :NO CURRENT MEDICATIONS TAKING NITROSTAT 0.4 MG TABLET SUBLINGUAL SUBLINGUAL NEEDED, NOTES: NONE RECENTLY TAKING TRANSFER BENCH - MISCELLANEOUS DIRECTED SHOWER CHAIR S32.010D TAKING WALKER - MISCELLANEOUS DIRECTED FX L-1 FOLDING TAKING ADJUST BATH/SHOWER SEAT - MISCELLANEOUS DIRECTED SHOWER SEAT S32.010D TAKING LUTEIN 6 MG CAPSULE 1 CAPSULE WITH A MEAL ORALLY ONCE A DAY TAKING VITAMIN D 1000 UNIT TABLET 1 TABLET ORALLY ONCE A DAY TAKING CALCIUM 600 + D 600-400 MG-UNIT TABLET 2 TABLET ORALLY BID TAKING LIPITOR 80 MG TABLET 1 TABLET ORALLY ONCE A DAY TAKING ISOSORBIDE MONONITRATE ER 60 MG TABLET EXTENDED RELEASE 24 HOUR (PRIOR AUTH: RX REF#:[id number]) ORAL ONCE A DAY TAKING PANTOPRAZOLE SODIUM 40 MG TABLET DELAYED RELEASE 1 TABLET ORALLY ONCE A DAY TAKING COREG CR 20 MG CAPSULE EXTENDED RELEASE 24 HOUR 1 CAP(S) ORALLY DAILY TAKING ASPIRIN 81 MG TABLET DELAYED RELEASE 1 TABLET NEEDED ORALLY DAILY TAKING PLAVIX 75 MG TABLET 1 TABLET ORALLY ONCE A DAY TAKING COLACE 50 MG CAPSULE 1 CAPSULE NEEDED ORALLY ONCE A DAY TAKING LYRICA 100 MG CAPSULE 1 CAPSULE ORALLY BID MDD2 THREE MOS. SUPPLY CAT. D CHRONIC PAIN TAKING HYDROCODONE-ACETAMINOPHEN 10-325 MG TABLET 1 ORAL 1 TABLET EVERY 6 HOURS NEEDED FOR SEVERE PAIN EPISODES MDD FOR 3 MONTH SUPPLY CATEGORY D CHRONIC PAIN MEDICATION LIST REVIEWED AND RECONCILED WITH THE PATIENT PAST MEDICAL HISTORY VITAMIN D DEFICIENCY ARTHRITIS ENVIRONMENTAL ALLERGIES HYPERTENSION HEART ATTACK, 2006 HX. OF VAIN ,PAPSMEAR ABNORMAL MAMMOGRAM, CAT 3 10/13 ALSO 04/14 OSTEOPENIA ELEVATED CHOLESTOEROL RIGHT SHOULDER PROBLEM,2011 GASTRIC ULCER 06/23/2013 TORN ROTATOR CUFF, AFTER A FALL RECTOCELE ,WAS TREATED WITH A PESSARY BUT COULD NOT TOLERATE IT .TIED OA BLADDER MED ,TOO MANY SIDE EFFECTS RIGHT TORN BICEP HIATAL HERNIA ALLERGIES ENVIRONMENTAL: RUNNY NOSE, SNEEZING - ALLERGY SOCIAL HISTORY GENERAL: TOBACCO USE ARE YOU A:NONSMOKER NEVER SMOKER LATEX QUESTIONNAIRE LATEX ALLERGY : HAVE YOU EVER DEVELOPED ANY TYPE OF REACTION AFTER HANDLING LATEX PRODUCTS SUCH RUBBER GLOVES, CONDOMS, DIAPHRAGMS, BALLOONS, SOCKS, OR UNDERWEAR?NO LATEX ALLERGY : HAVE YOU EVER DEVELOPED ANY TYPE OF REACTION DURING OR AFTER DENTAL APPOINTMENT, VAGINAL/RECTAL EXAMINATION, SURGICAL PROCEDURE, OR ANY OTHER EXPOSURE?NO LATEX RISK : HAVE YOU EVER HAD ANY DIFFICULTY BREATHING OR HIVES AFTER EATING OR HANDLING ANY FRUITS, OR VEGETABLES; SUCH KIWI, BANANAS, STONE FRUITS, OR CHESTNUTSNO LATEX RISK : DO YOU HAVE A PREVIOUS PERSONAL HISTORY OF MORE THAN NINE SURGERIES, SPINA BIFIDA, OR REPEATED CATHERIZATIONS? YES - PLEASE INDICATE : > 9 SURGERIES LATEX RISK : ARE YOU FREQUENTLY EXPOSED TO LATEX PRODUCTS IN YOUR OCCUPATION?NO DATE ASKED : 10/15/2020 ALCOHOL USE: YES, VERY LITTLE. LUNG CANCER SCREENING SMOKING STATUS:NON SMOKER ALCOHOL SCREENING DID YOU HAVE A DRINK CONTAINING ALCOHOL IN THE PAST YEAR?YES HOW OFTEN DID YOU HAVE SIX OR MORE DRINKS ON ONE OCCASION IN THE PAST YEAR?NEVER (0 POINTS) HOW MANY DRINKS DID YOU HAVE ON A TYPICAL DAY WHEN YOU WERE DRINKING IN THE PAST YEAR?1 OR 2 (0 POINTS) HOW OFTEN DID YOU HAVE A DRINK CONTAINING ALCOHOL IN THE PAST YEAR?MONTHLY OR LESS (1 POINT) POINTS1 INTERPRETATIONNEGATIVE RECREATIONAL DRUG USE DRUG USE?NO CAFFEINE CAFFEINE USE?YES HOW OFTEN AND HOW MUCH? 3 CUPS DAILY SEXUAL HX HAD SEX IN THE LAST 12 MONTHS (VAGINAL, ORAL, OR ANAL)?NO HAVE YOU EVER HAD AN STD?NO HIV / HEP-C SCREENING HIV TEST OFFERED TO PATIENT:NO AGE HEP-C TEST OFFERED TO PATIENT:NO AGE PENTECOSTAL PENTECOSTAL NO DENOMINATIONAL BELIEFS THAT WOULD IMPACT HEALTH CARE. LANGUAGE LANGUAGES SPOKEN:[place] EDUCATION LEVEL OF EDUCATION:HIGH SCHOOL SOME COLLEGE LEARNING BARRIERS / SPECIAL NEEDS CHANGE FROM LAST VISIT?NO BARRIERS TO LEARNING?NO HEARING IMPAIRED?NO VISION IMPAIRED?YES :CORRECTIVE LENSES COGNITIVELY IMPAIRED?NO READINESS TO LEARN?YES LEARNING PREFERENCES?NO LEARNING CAPABILITIES PRESENT?YES EMOTIONAL BARRIERS?NO SPECIAL DEVICES?YES :CANE CUSTOMS EXAMINER NEEDED?NO DOMESTIC VIOLENCE DO YOU FEEL SAFE IN YOUR ENVIRONMENT?YES OCCUPATION: RETIRED. DIET: REGULAR, LOW SODIUM. EXERCISE: NO REGULAR EXERCISE. MARITAL STATUS: . OTHERS AT HOME: SPOUSE. TODAY'S VISIT 11/16/2019 PATIENT DESCRIBES PAIN :ACHING, IT COMES AND GOES FROM 0-10, WHAT LEVEL IS YOUR PAIN TODAY?7 PRECIPITATING FACTORS ACTIVITY, PROLONGED STANDING ALLEVIATING FACTORS REST - PFS REFERRAL NEEDED?NO CLERGY REFERRAL NEEDED?NO PUBLIC HEALTH REFERRAL NEEDED?NO HAS THE PATIENT BEEN EDUCATED REGARDING HIS/HER PLAN OF CARE?YES HAS THE PATIENT BEEN EDUCATED REGARDING PAIN, THE RISK FOR PAIN, THE IMPORTANCE OF EFFECTIVE PAIN MANAGEMENT, AND THE PAIN ASSESSMENT PROCESS?YES ADVANCE DIRECTIVE ADVANCE DIRECTIVE DISCUSSED WITH PATIENT:YES HCP,LIVING WILL, NONHOSPITAL DNR ON FILE AT [facility] DENIES SMOKING OR STREET DRUGS. DRINKS APPROXIMATELY 3-4 GLASSES OF WINE PER MONTH, OBDULIO VALERAEVIEWED WITH PT 02/17/19 1040 BVREVIEWED WITH PATIENT 05/20/19 1025 JSREVIEWED WITH PATIENT 08/19/2019 1111 JS. REVIEW OF SYSTEMS CONSTITUTIONAL: ANY RECENT FEVER NO . CHILLS NO . WEIGHT CHANGE OF UNKNOWN REASONS NO . GASTROENTEROLOGY: NEW UNEXPLAINABLE CHANGES IN BOWEL CONTROL NO . CONSTIPATION NO . GENITOURINARY: ANY NEW CHANGE IN BLADDER CONTROL? NO . NEUROLOGY: NEW ONSET DIZZINESS OR NEUROLOGICAL CHANGES NOT MENTIONED NO . NEW NUMBNESS OR PAIN PATTERNS NOT MENTIONED AND PERTINENT TO TODAY'S VISIT NO . CARDIOLOGY: NEW CHEST PRESSURE NO . PATIENT DENIES NO . RESPIRATORY: UNEXPLAINABLE COUGH NO . NEW SHORTNESS OF BREATH NO . VITAL SIGNS WT 114.0 LBS, HT 59 IN, BMI 23.02 INDEX, BP 124/58 MM HG, HR 77 /MIN, RR 18 /MIN, TEMP 97.4 F, OXYGEN SAT % 99%, SAFE IN ENV? (Y/N) YES, NA INITIALS AW 1052T.YANIQUE FARAH. EXAMINATION GENERAL EXAMINATION: GENERALAWAKE,ALERT ,PLEAASANT . PSYCHAFFECT NORMAL . LUNGS:LUNG MOHAN ARE CLEAR TO AUSCULTATION BILATERALLY. GOOD MOVEMENT OF AIR . HEART:S1, S2 IN A REGULAR RATE AND RHYTHM. NO SIGNIFICANT MURMURS, RUBS OR GALLOPS NOTED . ASSESSMENTS LUMBOSACRAL SPONDYLOLYSIS - M43.07 (PRIMARY) TREATMENT LUMBOSACRAL SPONDYLOLYSIS INCREASE LYRICA CAPSULE, 200 MG, 1 CAPSULE, ORALLY, BID MDD2 THREE MOS. SUPPLY CAT. D CHRONIC PAIN, 90 DAY(S), 180, REFILLS 0 CONTINUE HYDROCODONE-ACETAMINOPHEN TABLET, 10-325 MG, 1, ORAL, 1 TABLET EVERY 6 HOURS NEEDED FOR SEVERE PAIN EPISODES MDD FOR 3 MONTH SUPPLY CATEGORY D CHRONIC PAIN NOTES: TODAY WE WILL INCREASE LYRICA TO 200 MG CAPSULE TWICE DAILY. FOLLOW-UP IN 2 MONTHS IS SCHEDULED. WE BRIEFLY DISCUSSED VERTIFLEX BUT SHE HAS SEVERE OSTEOPOROSIS WITH PRIOR LUMBAR SURGERY WELL SIGNIFICANT MEDICAL ISSUES TO INCLUDE ANEMIA. PROCEDURE CODES FA211 ESTABILISHED PATIENT [facility] CHARGE DISPOSITION & COMMUNICATION FOLLOW UP 2 MONTHS (REASON: MED MGMNT AFTER LYRICA INCREASE) ELECTRONICALLY SIGNED BY RHYS LYNCH ON 10/16/2020 AT 02:15 PM EDT DISCLAIMER : THIS IS A VISIT SUMMARY EXTRACTED FROM THE [employer] CHART. IT IS NOT A COPY OF THE [employer] PROGRESS NOTE. RAFAEL
== END ==
LOC: M PAIN 10:45
PROVIDERS: ATTEND Nurse Practitioner Family
DX: M43.07 Spondylolysis, lumbosacral region (principal); E55.9 Vitamin D deficiency, unspecified; I10 Essential (primary) hypertension; I25.2 Old myocardial infarction; E78.00 Pure hypercholesterolemia, unspecified; K44.9 Diaphragmatic hernia without obstruction or gangrene; M19.90 Unspecified osteoarthritis, unspecified site; M85.80 Other specified disorders of bone density and structure, unspecified site; J30.9 Allergic rhinitis, unspecified; Z79.82 Long term (current) use of aspirin; Z79.02 Long term (current) use of antithrombotics/antiplatelets; Z79.891 Long term (current) use of opiate analgesic; Z79.899 Other long term (current) drug therapy

== ENCOUNTER → 2020-12-14 | Outpatient (CLI) | payer MEDICARE, OTHER ==
--- NOTE | 2020-12-20 03:38 | ECWPNPC ---
PATIENT NAME: PHYLLIS COOK : 1935 GENDER: FEMALE VISIT DATE: 12/14/2020 DISCHARGE DATE: 12/14/20 1127 VISIT LOCKED DATE TIME: PHYSICIAN: WAQAS DUPREE PHYSICIAN PAGER NO: ACTIVE RESOURCE: WAQAS DUPREE REASON FOR APPOINTMENT 1. MED MGMNT AFTER LYRICA INCREASE HISTORY OF PRESENT ILLNESS GENERAL: HERE FOR F/U OF CHRONIC LOW BACK PAIN.DOING BETTER AFTER INCREASE OF LYRICA TO 200MG BID.WAS SEEN AT ER FOR UTI RECENTLY. FINDS CURRENT CHRONIC PAIN MEDICATION HELPFUL AT REDUCING PAIN AND KEEPING HER FUNCTIONAL. DENIES ADVERSE SIDE EFFECTS WITH MEDICATION. -. FALL RISK SCREENING: SCREENING : NO FALLS REPORTED IN THE LAST YEAR. PAIN SCREENING: PATIENT HAS A COMPLAINT OF ACUTE OR CHRONIC PAIN :YES LOCATION OF PAIN:LOW BACK, RIGHT HIP INTENSITY OF PAIN (SCALE OF 1 TO 10):4 WHAT DOES YOUR PAIN FEEL LIKE:ACHING, CONTINOUS, TENDER DURATION:CONSTANT PAIN IS INCREASED BY:ACTIVITIES, PROLONGED STANDING PAIN IS DECREASED BY:USE OF PAIN MEDICATIONS, OTHERS LAYING NURSING NOTE: -. PAIN CENTER INTAKE QUESTIONS: DO YOU HAVE A HISTORY OF MRSA? :NO DO YOU TAKE A BLOOD THINNERS? :NO DO YOU HAVE ANY BLEEDING DISORDERS? :NO ANY NEW NUMBNESS OR WEAKNESS IN YOUR LEGS OR ARMS? :NO ANY PACEMAKER,DEFIBRILLATOR, OR DORSAL COLUMN STIMULATOR? :NO DO YOU HAVE ANY RASHES OR OPEN SORES? :NO ARE YOU ALLERGIC TO IV DYE? :NO ARE YOU DIABETIC? :NO ANY NEW PROBLEMS WITH YOUR MEDICATIONS? :NO HAVE YOU RECEIVED A VACCINE IN THE PAST 30 DAYS? :NO SECOND COVID VACCINATION 09/2020 DO YOU PLAN TO RECEIVE A VACCINE IN THE NEXT 21 DAYS? :NO DO YOU NEED ANY PRESCRIPTION? :YES HYDROCODONE DO YOU TAKE ANY IMMUNOSUPPRESSIVE MEDICATIONS? :NO IS THERE A CHANCE YOU COULD BE ? :NO ARE YOU BREAST FEEDING? :NO CURRENT MEDICATIONS TAKING NITROSTAT 0.4 MG TABLET SUBLINGUAL SUBLINGUAL NEEDED, NOTES: NONE RECENTLY TAKING TRANSFER BENCH - MISCELLANEOUS DIRECTED SHOWER CHAIR S32.010D TAKING WALKER - MISCELLANEOUS DIRECTED FX L-1 FOLDING TAKING ADJUST BATH/SHOWER SEAT - MISCELLANEOUS DIRECTED SHOWER SEAT S32.010D TAKING LUTEIN 6 MG CAPSULE 1 CAPSULE WITH A MEAL ORALLY ONCE A DAY TAKING VITAMIN D 1000 UNIT TABLET 1 TABLET ORALLY ONCE A DAY TAKING CALCIUM 600 + D 600-400 MG-UNIT TABLET 2 TABLET ORALLY BID TAKING LIPITOR 80 MG TABLET 1 TABLET ORALLY ONCE A DAY TAKING ISOSORBIDE MONONITRATE ER 60 MG TABLET EXTENDED RELEASE 24 HOUR (PRIOR AUTH: RX REF#:[id number]) ORAL ONCE A DAY TAKING PANTOPRAZOLE SODIUM 40 MG TABLET DELAYED RELEASE 1 TABLET ORALLY ONCE A DAY TAKING COREG CR 20 MG CAPSULE EXTENDED RELEASE 24 HOUR 1 CAP(S) ORALLY DAILY TAKING ASPIRIN 81 MG TABLET DELAYED RELEASE 1 TABLET NEEDED ORALLY DAILY TAKING COLACE 50 MG CAPSULE 1 CAPSULE NEEDED ORALLY ONCE A DAY TAKING LYRICA 200 MG CAPSULE 1 CAPSULE ORALLY BID MDD2 THREE MOS. SUPPLY CAT. D CHRONIC PAIN TAKING HYDROCODONE-ACETAMINOPHEN 10-325 MG TABLET 1 ORAL 1 TABLET EVERY 6 HOURS NEEDED FOR SEVERE PAIN EPISODES MDD FOR 3 MONTH SUPPLY CATEGORY D CHRONIC PAIN NOT-TAKING PLAVIX 75 MG TABLET 1 TABLET ORALLY ONCE A DAY MEDICATION LIST REVIEWED AND RECONCILED WITH THE PATIENT PAST MEDICAL HISTORY VITAMIN D DEFICIENCY ARTHRITIS ENVIRONMENTAL ALLERGIES HYPERTENSION HEART ATTACK, 2006 HX. OF VAIN ,PAPSMEAR ABNORMAL MAMMOGRAM, CAT 3 10/13 ALSO 04/14 OSTEOPENIA ELEVATED CHOLESTOEROL RIGHT SHOULDER PROBLEM,2011 GASTRIC ULCER 06/23/2013 TORN ROTATOR CUFF, AFTER A FALL RECTOCELE ,WAS TREATED WITH A PESSARY BUT COULD NOT TOLERATE IT .TIED OA BLADDER MED ,TOO MANY SIDE EFFECTS RIGHT TORN BICEP HIATAL HERNIA ALLERGIES ENVIRONMENTAL: RUNNY NOSE, SNEEZING - ALLERGY SURGICAL HISTORY BLADDER SUSPENSION/UTERUS SUSPENSION 1964 HYSTERECTOMY 1965 LAMINECTOMY 1977 BACK SURGERY 1998 SIGMOIDOSCOPY/PROCTOSCOPY 2000 RECTAL PROLAPSE SURGERY 2001 CABG 4 VESSELS 2007 CARDIAC CATH WITH 4 STENTS 2006 CARDIAC CATHS 9 TIMES WITH STENTS TOOTH EXTRACTION 07/2017 STACY TO LAD, FIRMA SEQUENTIAL TO OM AND D1, SVG TO PDA. 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 12/14/2020 FAMILY HISTORY FATHER: , DIAGNOSED WITH HYPERTENSION MOTHER: , HYPERTENSION SIBLINGS: BROTHER 12/2020 CARDIAC. SOCIAL HISTORY GENERAL: TOBACCO USE ARE YOU A:NONSMOKER NEVER SMOKER LATEX QUESTIONNAIRE LATEX ALLERGY : HAVE YOU EVER DEVELOPED ANY TYPE OF REACTION AFTER HANDLING LATEX PRODUCTS SUCH RUBBER GLOVES, CONDOMS, DIAPHRAGMS, BALLOONS, SOCKS, OR UNDERWEAR?NO LATEX ALLERGY : HAVE YOU EVER DEVELOPED ANY TYPE OF REACTION DURING OR AFTER DENTAL APPOINTMENT, VAGINAL/RECTAL EXAMINATION, SURGICAL PROCEDURE, OR ANY OTHER EXPOSURE?NO DATE ASKED : 10/15/2020 LATEX RISK : HAVE YOU EVER HAD ANY DIFFICULTY BREATHING OR HIVES AFTER EATING OR HANDLING ANY FRUITS, OR VEGETABLES; SUCH KIWI, BANANAS, STONE FRUITS, OR CHESTNUTSNO LATEX RISK : DO YOU HAVE A PREVIOUS PERSONAL HISTORY OF MORE THAN NINE SURGERIES, SPINA BIFIDA, OR REPEATED CATHERIZATIONS? YES - PLEASE INDICATE : > 9 SURGERIES LATEX RISK : ARE YOU FREQUENTLY EXPOSED TO LATEX PRODUCTS IN YOUR OCCUPATION?NO ALCOHOL USE: YES, VERY LITTLE. LUNG CANCER SCREENING SMOKING STATUS:NON SMOKER ALCOHOL SCREENING DID YOU HAVE A DRINK CONTAINING ALCOHOL IN THE PAST YEAR?YES HOW OFTEN DID YOU HAVE SIX OR MORE DRINKS ON ONE OCCASION IN THE PAST YEAR?NEVER (0 POINTS) HOW MANY DRINKS DID YOU HAVE ON A TYPICAL DAY WHEN YOU WERE DRINKING IN THE PAST YEAR?1 OR 2 (0 POINTS) HOW OFTEN DID YOU HAVE A DRINK CONTAINING ALCOHOL IN THE PAST YEAR?MONTHLY OR LESS (1 POINT) POINTS1 INTERPRETATIONNEGATIVE RECREATIONAL DRUG USE DRUG USE?NO CAFFEINE CAFFEINE USE?YES HOW OFTEN AND HOW MUCH? 3 CUPS DAILY SEXUAL HX HAD SEX IN THE LAST 12 MONTHS (VAGINAL, ORAL, OR ANAL)?NO HAVE YOU EVER HAD AN STD?NO HIV / HEP-C SCREENING HIV TEST OFFERED TO PATIENT:NO AGE HEP-C TEST OFFERED TO PATIENT:NO AGE SIKH SIKH NO TAOIST BELIEFS THAT WOULD IMPACT HEALTH CARE. LANGUAGE LANGUAGES SPOKEN:SWAZI EDUCATION LEVEL OF EDUCATION:HIGH SCHOOL SOME COLLEGE LEARNING BARRIERS / SPECIAL NEEDS CHANGE FROM LAST VISIT?NO 11/27/2020 BARRIERS TO LEARNING?NO HEARING IMPAIRED?NO VISION IMPAIRED?YES COGNITIVELY IMPAIRED?NO :CORRECTIVE LENSES READINESS TO LEARN?YES LEARNING PREFERENCES?NO LEARNING CAPABILITIES PRESENT?YES EMOTIONAL BARRIERS?NO SPECIAL DEVICES?YES :CANE PRODUCT OPERATIONS ASSOCIATE NEEDED?NO DOMESTIC VIOLENCE DO YOU FEEL SAFE IN YOUR ENVIRONMENT?YES OCCUPATION: RETIRED. DIET: REGULAR, LOW SODIUM. EXERCISE: NO REGULAR EXERCISE. MARITAL STATUS: . OTHERS AT HOME: SPOUSE. TODAY'S VISIT 11/16/2019 PATIENT DESCRIBES PAIN :ACHING, IT COMES AND GOES FROM 0-10, WHAT LEVEL IS YOUR PAIN TODAY?7 PRECIPITATING FACTORS ACTIVITY, PROLONGED STANDING ALLEVIATING FACTORS REST - PFS REFERRAL NEEDED?NO CLERGY REFERRAL NEEDED?NO PUBLIC HEALTH REFERRAL NEEDED?NO HAS THE PATIENT BEEN EDUCATED REGARDING HIS/HER PLAN OF CARE?YES HAS THE PATIENT BEEN EDUCATED REGARDING PAIN, THE RISK FOR PAIN, THE IMPORTANCE OF EFFECTIVE PAIN MANAGEMENT, AND THE PAIN ASSESSMENT PROCESS?YES ADVANCE DIRECTIVE ADVANCE DIRECTIVE DISCUSSED WITH PATIENT:YES HCP,LIVING WILL, NONHOSPITAL DNR ON FILE AT [facility] DENIES SMOKING OR STREET DRUGS. DRINKS APPROXIMATELY 3-4 GLASSES OF WINE PER MONTH, OBDULIO SOTOEVIEWED WITH PT 02/17/19 1040 BVREVIEWED WITH PATIENT 05/20/19 1025 JSREVIEWED WITH PATIENT 08/19/2019 1111 JS. HOSPITALIZATION/MAJOR DIAGNOSTIC PROCEDURE SEE ABOVE SURGICAL HX REVIEW OF SYSTEMS CONSTITUTIONAL: ANY RECENT FEVER NO . CHILLS NO . WEIGHT CHANGE OF UNKNOWN REASONS NO . GASTROENTEROLOGY: NEW UNEXPLAINABLE CHANGES IN BOWEL CONTROL NO . CONSTIPATION NO . GENITOURINARY: ANY NEW CHANGE IN BLADDER CONTROL? NO . NEUROLOGY: NEW ONSET DIZZINESS OR NEUROLOGICAL CHANGES NOT MENTIONED NO . NEW NUMBNESS OR PAIN PATTERNS NOT MENTIONED AND PERTINENT TO TODAY'S VISIT NO . CARDIOLOGY: NEW CHEST PRESSURE NO . PATIENT DENIES NO . RESPIRATORY: UNEXPLAINABLE COUGH NO . NEW SHORTNESS OF BREATH NO . VITAL SIGNS WT 112.8 LBS, HT 59 IN, BMI 22.78 INDEX, BP 148/84 MM HG, HR 62 /MIN, RR 18 /MIN, TEMP 99.1 F, SAFE IN ENV? (Y/N) YES, REVIEWED BY: DIONISIO ANTONIO MA. EXAMINATION GENERAL EXAMINATION: GENERALAWAKE,ALERT ,PLEAASANT . PSYCHAFFECT NORMAL . LUNGS:LUNG MOHAN ARE CLEAR TO AUSCULTATION BILATERALLY. GOOD MOVEMENT OF AIR . HEART:S1, S2 IN A REGULAR RATE AND RHYTHM. NO SIGNIFICANT MURMURS, RUBS OR GALLOPS NOTED . ASSESSMENTS LUMBOSACRAL SPONDYLOLYSIS - M43.07 (PRIMARY) TREATMENT LUMBOSACRAL SPONDYLOLYSIS CONTINUE LYRICA CAPSULE, 200 MG, 1 CAPSULE, ORALLY, BID MDD2 THREE MOS. SUPPLY CAT. D CHRONIC PAIN REFILL HYDROCODONE-ACETAMINOPHEN TABLET, 10-325 MG, 1, ORAL, 1 TABLET EVERY 6 HOURS NEEDED FOR SEVERE PAIN EPISODES MDD FOR 3 MONTH SUPPLY CATEGORY D CHRONIC PAIN, 90 DAY(S), 360 NOTES: ISTOP REGISTRY REVIEWED AND DEMONSTRATES COMPLLIANCE. BRINGS IN MEDICATIONS WHICH IS APPROPRIATE FOR WHAT WAS DISPENSED. RECENT URINE TOXICOLOGY REVIEWED. NO UNAUTHORIZED MEDICATIONS. NO ILLICIT SUBSTANCES AND PRESCRIBED MEDICATIONS WERE PRESENT. PROCEDURE CODES FA211 ESTABILISHED PATIENT [facility] CHARGE DISPOSITION & COMMUNICATION FOLLOW UP 3 MONTHS (REASON: MED MGMNT/UTOX) ELECTRONICALLY SIGNED BY RHYS LYNCH ON 12/19/2020 AT 09:40 AM EDT DISCLAIMER : THIS IS A VISIT SUMMARY [facility] IT IS NOT A COPY OF THE [employer] PROGRESS NOTE. MTDD
== END ==
LOC: M PAIN 10:45
PROVIDERS: ATTEND Nurse Practitioner Family
DX: M43.07 Spondylolysis, lumbosacral region (principal); G89.29 Other chronic pain; E55.9 Vitamin D deficiency, unspecified; Z79.82 Long term (current) use of aspirin; Z79.899 Other long term (current) drug therapy

== ENCOUNTER → 2020-12-20 | Outpatient (REF) | payer MEDICARE, OTHER | LOC: M SFHCWAGY 12:59 | PROVIDERS: ATTEND Advanced Practice Midwife | DX: Z12.72 Encounter for screening for malignant neoplasm of vagina (principal) ==

== ENCOUNTER → 2020-12-20 | Outpatient (CLI) | payer MEDICARE, OTHER ==
--- NOTE | 2020-12-20 11:10 | REPMRS ---
Patient History The patient states she had a clinical breast exam in December 2020. Family history of unknown cancer at age 64 in father. Benign excisional biopsy of the right breast, 1998. No Hormone Replacement Therapy Moderna vaccine 08/11/20 left arm. 09/08/20 left arm. Patient states no breast complaints today. Patient has signed MRS History Sheet. Digital Woman Screen Mammo: December 20, 2020 - Exam #: [id number] Bilateral CC and MLO view(s) were taken. Technologist: RT Magali Prior study comparison: December 02, 2019, bilateral digital woman screen mammo performed at [facility]. October 20, 2018, bilateral digital woman screen mammo performed at [facility]. FINDINGS: The breast tissue is extremely dense which could obscure a lesion on mammography. Screening. Digital screening (2D) mammography was performed bilaterally in the CC and MLO projections. Additionally, breast tomosynthesis (3D mammography) was performed bilaterally in the CC and MLO projections. Todays exam was compared to the prior exam/exams. By history, the patient has no complaints of a palpable breast abnormality or other significant breast complaints. The breasts are unchanged in size and shape, Once again, dense heterogenous fibroglandular elements are seen bilaterally in a stable appearing pattern but to such a degree that the sensitivity of the mammogram in detecting cancer is decreased.. There are no judy-soft tissue densities or spiculated masses. There is no internal architectural distortion.Once again, stable benign appearing calcifications are seen. There are no suspicious judy-calcific clusters. Skin thickening or nipple retraction is not present. IMPRESSION: BI-RADS Category 2- Benign Findings. There is no evidence of malignant alteration of the breasts. Followup examination recommended in one year. The Volpara volumetric breast density category is D, the breasts are extremely dense which lowers the sensitivity of mammography. This mammogram was read with the assistance of [employer],an FDA approved computer aided detection system for mammography. Due to the density of the breasts or Tyrer Cuzick score of 20% or greater, MRI/whole breast screening ultrasound is warranted. Negative x-ray reports should not delay surgical consultation if a dominant or clinically suspicious mass is present. Not all breast cancers can be identified by mammography. Therefore, we recommend that you continue to perform regular breast self-examination and physical examination and then promptly contact your physician of any concerns or changes. Adenosis and dense breasts may obscure an underlying neoplasm. Assessment: BI-RADS/ACR category 2 mammogram. Benign Findings. Recommendation Routine screening mammogram of both breasts in 1 year. Electronically Signed By: Burt Doll DO 12/20/20 1108
== END ==
LOC: M WHC 09:19
PROVIDERS: ATTEND Advanced Practice Midwife
DX: Z12.31 Encounter for screening mammogram for malignant neoplasm of breast (principal); Z12.72 Encounter for screening for malignant neoplasm of vagina; Z80.8 Family history of malignant neoplasm of other organs or systems; Z86.018 Personal history of other benign neoplasm; R92.1 Mammographic calcification found on diagnostic imaging of breast
CPT/HCPCS: 77063; 77067; 87624; G0123; G0463

== ENCOUNTER → 2021-03-27 | Outpatient (CLI) | payer MEDICARE, OTHER | LOC: M PAIN 10:30 | PROVIDERS: ATTEND Anesthesiology | DX: M43.07 Spondylolysis, lumbosacral region (principal); M79.18 Myalgia, other site; E55.9 Vitamin D deficiency, unspecified; Z79.82 Long term (current) use of aspirin; Z79.899 Other long term (current) drug therapy ==

== ENCOUNTER → 2021-06-19 | Outpatient (CLI) | payer MEDICARE, OTHER | LOC: M PAIN 10:30 | PROVIDERS: ATTEND Anesthesiology | DX: M48.061 Spinal stenosis, lumbar region without neurogenic claudication (principal); E55.9 Vitamin D deficiency, unspecified; I10 Essential (primary) hypertension; I25.2 Old myocardial infarction; M85.80 Other specified disorders of bone density and structure, unspecified site; E78.00 Pure hypercholesterolemia, unspecified; K44.9 Diaphragmatic hernia without obstruction or gangrene; J30.1 Allergic rhinitis due to pollen; Z79.82 Long term (current) use of aspirin; Z79.891 Long term (current) use of opiate analgesic; Z79.899 Other long term (current) drug therapy ==

== ENCOUNTER → 2021-06-25 | Outpatient (REF) | payer MEDICARE, OTHER ==
[2021-06-25 16:44] LABS: BLOOD UREA NITROGEN 27 MG/DL (7-18); CALCIUM LEVEL 9.3 MG/DL (8.8-10.2); CARBON DIOXIDE LEVEL 32 MEQ/L (21-32); CHLORIDE LEVEL 102 MEQ/L (98-107); CREATININE FOR GFR 0.77 MG/DL (0.55-1.30); GLOMERULAR FILTRATION RATE > 60.0 (>32); GLUCOSE, FASTING 111 MG/DL (70-100); POTASSIUM SERUM 4.7 MEQ/L (3.5-5.1); SODIUM LEVEL 137 MEQ/L (136-145)
[2021-06-25 17:11] LABS: TOTAL 25(OH) VITAMIN D 35.7 NG/ML (30.0-100.0)
== END ==
LOC: M SFHCCLAY 11:08
PROVIDERS: ATTEND Family Medicine
DX: E55.9 Vitamin D deficiency, unspecified (principal); M81.0 Age-related osteoporosis without current pathological fracture; I25.810 Atherosclerosis of coronary artery bypass graft(s) without angina pectoris; Z86.79 Personal history of other diseases of the circulatory system; I11.0 Hypertensive heart disease with heart failure; I50.30 Unspecified diastolic (congestive) heart failure; I25.2 Old myocardial infarction; E78.5 Hyperlipidemia, unspecified; M47.816 Spondylosis without myelopathy or radiculopathy, lumbar region
CPT/HCPCS: 80048; 82306; G0463

== ENCOUNTER → 2021-07-11 | Outpatient (CLI) | payer MEDICARE, OTHER | LOC: M PAIN 15:15 | PROVIDERS: ATTEND Anesthesiology | DX: M48.061 Spinal stenosis, lumbar region without neurogenic claudication (principal); M47.816 Spondylosis without myelopathy or radiculopathy, lumbar region; M47.814 Spondylosis without myelopathy or radiculopathy, thoracic region; G89.29 Other chronic pain; E55.9 Vitamin D deficiency, unspecified; Z88.8 Allergy status to other drugs, medicaments and biological substances; Z79.82 Long term (current) use of aspirin; Z79.899 Other long term (current) drug therapy ==

== ENCOUNTER → 2021-08-01 | Outpatient (REF) | payer MEDICARE, OTHER | LOC: M SFHCCLAY 16:08 | PROVIDERS: ATTEND Family Medicine | DX: L57.0 Actinic keratosis (principal) | CPT/HCPCS: 11102; 88305; G0463 ==

== ENCOUNTER → 2021-10-04 | Outpatient (CLI) | payer MEDICARE, OTHER | LOC: M PAIN 11:15 | PROVIDERS: ATTEND Nurse Practitioner Family | DX: M48.061 Spinal stenosis, lumbar region without neurogenic claudication (principal); M96.1 Postlaminectomy syndrome, not elsewhere classified; E55.9 Vitamin D deficiency, unspecified; Z88.8 Allergy status to other drugs, medicaments and biological substances; Z79.82 Long term (current) use of aspirin; Z79.899 Other long term (current) drug therapy ==

== ENCOUNTER → 2021-12-04 | Outpatient (CLI) | payer MEDICARE, OTHER | LOC: M PAIN 11:45 | PROVIDERS: ATTEND Nurse Practitioner Family | DX: M48.061 Spinal stenosis, lumbar region without neurogenic claudication (principal); M96.1 Postlaminectomy syndrome, not elsewhere classified; E55.9 Vitamin D deficiency, unspecified; Z88.8 Allergy status to other drugs, medicaments and biological substances; Z79.82 Long term (current) use of aspirin; Z79.899 Other long term (current) drug therapy ==

== ENCOUNTER → 2021-12-12 | Outpatient (REF) | payer MEDICARE, OTHER ==
[2021-12-12 16:15] LABS: HEMATOCRIT 34.1 % (36.0-47.0); HEMOGLOBIN 11.8 g/dl (12.0-15.5); MEAN CORPUSCULAR HEMOGLOBIN 34.9 pg (27.0-33.0); MEAN CORPUSCULAR HGB CONC 34.6 g/dl (32.0-36.5); MEAN CORPUSCULAR VOLUME 100.9 fl (80.0-96.0); PLATELET COUNT, AUTOMATED 242 10^3/uL (150-450); RED BLOOD COUNT 3.38 10^6/uL (4.00-5.40); WHITE BLOOD COUNT 5.2 10^3/uL (4.0-10.0)
[2021-12-12 16:26] LABS: ALBUMIN 3.2 GM/DL (3.2-5.2); ALT/SGPT 21 U/L (12-78); BILIRUBIN,TOTAL 0.6 MG/DL (0.2-1.0); BLOOD UREA NITROGEN 19 MG/DL (7-18); CALCIUM LEVEL 9.6 MG/DL (8.8-10.2); CARBON DIOXIDE LEVEL 29 MEQ/L (21-32); CHLORIDE LEVEL 101 MEQ/L (98-107); CHOLESTEROL LEVEL 137 MG/DL (<200); CHOLESTEROL RISK RATIO 1.756 (<5); CREATININE FOR GFR 0.82 MG/DL (0.55-1.30); GLOMERULAR FILTRATION RATE > 60.0 (>32); GLUCOSE, FASTING 111 MG/DL (70-100); HDL CHOLESTEROL 78 MG/DL (>40); LDL CHOLESTEROL 45 MG/DL (<100); NON-HDL-C 59 MG/DL; SODIUM LEVEL 137 MEQ/L (136-145); TOTAL PROTEIN 6.6 GM/DL (6.4-8.2); TRIGLYCERIDES LEVEL 70 MG/DL (<150)
== END ==
LOC: M SFHCCLAY 10:37
PROVIDERS: ATTEND Nurse Practitioner Family
DX: L03.115 Cellulitis of right lower limb (principal); I25.810 Atherosclerosis of coronary artery bypass graft(s) without angina pectoris

== ENCOUNTER → 2022-01-30 | Outpatient (CLI) | payer MEDICARE, OTHER | LOC: M PAIN 11:45 | PROVIDERS: ATTEND Nurse Practitioner Family | DX: M48.061 Spinal stenosis, lumbar region without neurogenic claudication (principal); G89.29 Other chronic pain; E55.9 Vitamin D deficiency, unspecified; I10 Essential (primary) hypertension; Z88.8 Allergy status to other drugs, medicaments and biological substances; Z79.82 Long term (current) use of aspirin; Z79.899 Other long term (current) drug therapy ==

== ENCOUNTER → 2022-02-21 | Outpatient (REF) | payer MEDICARE, OTHER | LOC: M SFHCDERM 14:02 | PROVIDERS: ATTEND Nurse Practitioner Family | DX: L57.0 Actinic keratosis (principal) | CPT/HCPCS: 11102; 17000; 88305; G0463 ==

== ENCOUNTER → 2022-04-09 | Outpatient (REF) | payer MEDICARE, OTHER ==
[2022-04-09 18:34] LABS: HEMATOCRIT 27.5 % (36.0-47.0); HEMOGLOBIN 8.9 g/dl (12.0-15.5); MEAN CORPUSCULAR HEMOGLOBIN 34.4 pg (27.0-33.0); MEAN CORPUSCULAR HGB CONC 32.4 g/dl (32.0-36.5); MEAN CORPUSCULAR VOLUME 106.2 fl (80.0-96.0); PLATELET COUNT, AUTOMATED 360 10^3/uL (150-450); RED BLOOD COUNT 2.59 10^6/uL (4.00-5.40)
[2022-04-09 19:09] LABS: BLOOD UREA NITROGEN 20 MG/DL (7-18); CARBON DIOXIDE LEVEL 29 MEQ/L (21-32); CHLORIDE LEVEL 99 MEQ/L (98-107); CHOLESTEROL LEVEL 123 MG/DL (<200); CREATININE FOR GFR 0.76 MG/DL (0.55-1.30); GLOMERULAR FILTRATION RATE > 60.0 (>32); GLUCOSE, FASTING 118 MG/DL (70-100); HDL CHOLESTEROL 58 MG/DL (>40); LDL CHOLESTEROL 56 MG/DL (<100); NON-HDL-C 65 MG/DL; POTASSIUM SERUM 4.5 MEQ/L (3.5-5.1); SODIUM LEVEL 133 MEQ/L (136-145); TRIGLYCERIDES LEVEL 45 MG/DL (<150)
== END ==
LOC: M SFHCCLAY 14:54
PROVIDERS: ATTEND Nurse Practitioner Family
DX: S72.001G Fracture of unspecified part of neck of right femur, subsequent encounter for closed fracture with delayed healing (principal); I25.810 Atherosclerosis of coronary artery bypass graft(s) without angina pectoris

== ENCOUNTER → 2022-08-08 | Outpatient (CLI) | payer MEDICARE, OTHER | LOC: M PAIN 14:45 | PROVIDERS: ATTEND Nurse Practitioner Family | DX: M48.061 Spinal stenosis, lumbar region without neurogenic claudication (principal); G89.29 Other chronic pain; E55.9 Vitamin D deficiency, unspecified; I10 Essential (primary) hypertension; I25.2 Old myocardial infarction; Z95.1 Presence of aortocoronary bypass graft; Z95.5 Presence of coronary angioplasty implant and graft; Z96.641 Presence of right artificial hip joint; Z88.8 Allergy status to other drugs, medicaments and biological substances; Z79.82 Long term (current) use of aspirin; Z79.899 Other long term (current) drug therapy ==

== ENCOUNTER → 2022-08-27 | Outpatient (REF) | payer MEDICARE, OTHER ==
[2022-08-27 17:31] LABS: BASO % 0.5 % (0.0-1.0); EOS # 0.2 10^3/uL (0.0-0.5); EOS % 2.8 % (0.0-3.0); HEMATOCRIT 28.6 % (36.0-47.0); HEMOGLOBIN 9.3 g/dl (12.0-15.5); LYMPH # 1.1 10^3/uL (1.5-5.0); LYMPH % 16.7 % (24.0-44.0); MEAN CORPUSCULAR HEMOGLOBIN 32.6 pg (27.0-33.0); MEAN CORPUSCULAR HGB CONC 32.5 g/dl (32.0-36.5); MEAN CORPUSCULAR VOLUME 100.4 fl (80.0-96.0); MONO # 0.4 10^3/uL (0.0-0.8); MONO % 6.3 % (2.0-8.0); NEUTROPHILS # 4.7 10^3/uL (1.5-8.5); NEUTROPHILS % 73.2 % (36.0-66.0); PLATELET COUNT, AUTOMATED 308 10^3/uL (150-450); RED BLOOD COUNT 2.85 10^6/uL (4.00-5.40); WHITE BLOOD COUNT 6.4 10^3/uL (4.0-10.0)
[2022-08-27 17:36] LABS: ALBUMIN 3.1 G/DL (3.2-5.2); ALKALINE PHOSPHATASE 96 U/L (46-116); ALT/SGPT 30 U/L (7.0-40); BILIRUBIN,TOTAL 0.3 MG/DL (0.3-1.2); BLOOD UREA NITROGEN 27 MG/DL (9-23); CALCIUM LEVEL 9.7 MG/DL (8.3-10.6); CARBON DIOXIDE LEVEL 26 MMOL/L (20-31); CHLORIDE LEVEL 100 MMOL/L (98-107); CHOLESTEROL LEVEL 134 MG/DL (<200); CHOLESTEROL RISK RATIO 2.12 (<5); GLOMERULAR FILTRATION RATE > 60.0 (>32); GLUCOSE, FASTING 129 MG/DL (74-106); HDL CHOLESTEROL 63.1 MG/DL (>40); NON-HDL-C 71 MG/DL; POTASSIUM SERUM 4.7 MMOL/L (3.5-5.1); SODIUM LEVEL 131 MMOL/L (136-145)
[2022-08-27 18:38] LABS: AST/SGOT 26 U/L (<34); LDL CHOLESTEROL 50.9 MG/DL (<100); TOTAL PROTEIN 6.3 G/DL (5.7-8.2); TRIGLYCERIDES LEVEL 100 MG/DL (<150)
== END ==
LOC: M SFHCCLAY 13:53
PROVIDERS: ATTEND Nurse Practitioner Family
DX: L89.154 Pressure ulcer of sacral region, stage 4 (principal); M47.816 Spondylosis without myelopathy or radiculopathy, lumbar region; M81.0 Age-related osteoporosis without current pathological fracture; I25.810 Atherosclerosis of coronary artery bypass graft(s) without angina pectoris; Z96.649 Presence of unspecified artificial hip joint

== ENCOUNTER → 2022-09-03 | Outpatient (REF) | payer MEDICARE, OTHER ==
[2022-09-03 17:30] LABS: BLOOD UREA NITROGEN 24 MG/DL (9-23); CALCIUM LEVEL 8.8 MG/DL (8.3-10.6); CARBON DIOXIDE LEVEL 25 MMOL/L (20-31); CHLORIDE LEVEL 103 MMOL/L (98-107); CREATININE FOR GFR 0.68 MG/DL (0.55-1.30); GLOMERULAR FILTRATION RATE > 60.0 (>32); GLUCOSE, FASTING 100 MG/DL (74-106); POTASSIUM SERUM 5.2 MMOL/L (3.5-5.1); SODIUM LEVEL 134 MMOL/L (136-145)
== END ==
LOC: M SFHCCLAY 13:48
PROVIDERS: ATTEND Nurse Practitioner Family
DX: E87.1 Hypo-osmolality and hyponatremia (principal)

== ENCOUNTER → 2023-03-10 | Outpatient (REF) | payer MEDICARE, OTHER ==
[2023-03-10 17:54] LABS: BASO % 0.4 % (0.0-1.0); EOS # 0.1 10^3/uL (0.0-0.5); EOS % 2.1 % (0.0-3.0); HEMATOCRIT 38.5 % (36.0-47.0); HEMOGLOBIN 13.2 g/dl (12.0-15.5); LYMPH # 1.3 10^3/uL (1.5-5.0); LYMPH % 23.8 % (24.0-44.0); MEAN CORPUSCULAR HEMOGLOBIN 33.4 pg (27.0-33.0); MEAN CORPUSCULAR HGB CONC 34.3 g/dl (32.0-36.5); MEAN CORPUSCULAR VOLUME 97.5 fl (80.0-96.0); MONO # 0.6 10^3/uL (0.0-0.8); MONO % 11.9 % (2.0-8.0); NEUTROPHILS # 3.3 10^3/uL (1.5-8.5); NEUTROPHILS % 61.6 % (36.0-66.0); PLATELET COUNT, AUTOMATED 238 10^3/uL (150-450); RED BLOOD COUNT 3.95 10^6/uL (4.00-5.40); WHITE BLOOD COUNT 5.3 10^3/uL (4.0-10.0)
[2023-03-10 18:18] LABS: ALBUMIN 3.6 G/DL (3.2-5.2); ALKALINE PHOSPHATASE 73 U/L (46-116); ALT/SGPT 20 U/L (7.0-40); AST/SGOT 16 U/L (<34); BILIRUBIN,TOTAL 0.6 MG/DL (0.3-1.2); BLOOD UREA NITROGEN 20 MG/DL (9-23); CALCIUM LEVEL 9.2 MG/DL (8.3-10.6); CARBON DIOXIDE LEVEL 26 MMOL/L (20-31); CHLORIDE LEVEL 103 MMOL/L (98-107); CHOLESTEROL LEVEL 175 MG/DL (<200); CHOLESTEROL RISK RATIO 2.39 (<5); CREATININE FOR GFR 0.76 MG/DL (0.55-1.30); GLOMERULAR FILTRATION RATE > 60.0 (>32); GLUCOSE, FASTING 114 MG/DL (74-106); LDL CHOLESTEROL 85.2 MG/DL (<100); POTASSIUM SERUM 4.3 MMOL/L (3.5-5.1); SODIUM LEVEL 138 MMOL/L (136-145); TOTAL PROTEIN 6.7 G/DL (5.7-8.2); TRIGLYCERIDES LEVEL 84 MG/DL (<150)
== END ==
LOC: M SFHCCLAY 11:48
PROVIDERS: ATTEND Nurse Practitioner Family
DX: L90.0 Lichen sclerosus et atrophicus (principal); I25.810 Atherosclerosis of coronary artery bypass graft(s) without angina pectoris; M81.0 Age-related osteoporosis without current pathological fracture

== ENCOUNTER → 2023-09-11 | Outpatient (REF) | payer MEDICARE, OTHER ==
[2023-09-11 18:31] LABS: BASO % 0.6 % (0.0-1.0); EOS # 0.3 10^3/uL (0.0-0.5); EOS % 5.1 % (0.0-3.0); HEMATOCRIT 22.6 % (36.0-47.0); HEMOGLOBIN 7.5 g/dl (12.0-15.5); LYMPH # 1.5 10^3/uL (1.5-5.0); LYMPH % 27.5 % (24.0-44.0); MEAN CORPUSCULAR HEMOGLOBIN 29.2 pg (27.0-33.0); MEAN CORPUSCULAR HGB CONC 33.2 g/dl (32.0-36.5); MEAN CORPUSCULAR VOLUME 87.9 fl (80.0-96.0); MONO # 0.6 10^3/uL (0.0-0.8); MONO % 10.4 % (2.0-8.0); NEUTROPHILS % 56.2 % (36.0-66.0); PLATELET COUNT, AUTOMATED 272 10^3/uL (150-450); RED BLOOD COUNT 2.57 10^6/uL (4.00-5.40); WHITE BLOOD COUNT 5.3 10^3/uL (4.0-10.0)
[2023-09-11 18:56] LABS: ALBUMIN 3.3 G/DL (3.2-5.2); ALKALINE PHOSPHATASE 68 U/L (46-116); ALT/SGPT 17 U/L (7.0-40); AST/SGOT 16 U/L (<34); BILIRUBIN,TOTAL 0.3 MG/DL (0.3-1.2); BLOOD UREA NITROGEN 22 MG/DL (9-23); CALCIUM LEVEL 8.6 MG/DL (8.3-10.6); CARBON DIOXIDE LEVEL 26 MMOL/L (20-31); CHLORIDE LEVEL 105 MMOL/L (98-107); CREATININE FOR GFR 0.76 MG/DL (0.55-1.30); GLOMERULAR FILTRATION RATE > 60.0 (>32); GLUCOSE, FASTING 124 MG/DL (74-106); POTASSIUM SERUM 4.2 MMOL/L (3.5-5.1); SODIUM LEVEL 136 MMOL/L (136-145); TOTAL PROTEIN 6.2 G/DL (5.7-8.2)
[2023-09-11 18:57] LABS: FREE T4 1.06 NG/DL (0.89-1.76)
[2023-09-11 18:58] LABS: THYROID STIMULATING HORMONE 1.653 uIU/ML (0.55-4.78)
== END ==
LOC: M SFHCCLAY 13:55
PROVIDERS: ATTEND Nurse Practitioner Family
DX: R06.02 Shortness of breath (principal); R07.89 Other chest pain; Z79.899 Other long term (current) drug therapy

== ENCOUNTER → 2023-09-11 | Outpatient (CLI) | payer MEDICARE, OTHER | LOC: M CLY 14:15 | PROVIDERS: ATTEND Nurse Practitioner Family | DX: K44.9 Diaphragmatic hernia without obstruction or gangrene (principal); R06.02 Shortness of breath ==

== ENCOUNTER → 2023-09-21 | Outpatient (REF) | payer MEDICARE, OTHER ==
[2023-09-21 18:29] LABS: BLOOD UREA NITROGEN 29 MG/DL (9-23); CALCIUM LEVEL 8.6 MG/DL (8.3-10.6); CARBON DIOXIDE LEVEL 26 MMOL/L (20-31); CHLORIDE LEVEL 100 MMOL/L (98-107); CREATININE FOR GFR 0.84 MG/DL (0.55-1.30); GLOMERULAR FILTRATION RATE > 60.0 (>32); GLUCOSE, FASTING 167 MG/DL (74-106); POTASSIUM SERUM 4.3 MMOL/L (3.5-5.1); SODIUM LEVEL 129 MMOL/L (136-145)
== END ==
LOC: M SFHCCLAY 11:24
PROVIDERS: ATTEND Nurse Practitioner Family
DX: I50.22 Chronic systolic (congestive) heart failure (principal)

== ENCOUNTER → 2023-09-22 | Outpatient (REF) | payer MEDICARE, OTHER ==
[2023-09-22 18:42] LABS: BASO % 0.4 % (0.0-1.0); EOS # 0.1 10^3/uL (0.0-0.5); EOS % 1.4 % (0.0-3.0); LYMPH # 1.2 10^3/uL (1.5-5.0); MEAN CORPUSCULAR HEMOGLOBIN 29.3 pg (27.0-33.0); MEAN CORPUSCULAR HGB CONC 33.7 g/dl (32.0-36.5); MEAN CORPUSCULAR VOLUME 87.1 fl (80.0-96.0); MONO # 0.5 10^3/uL (0.0-0.8); MONO % 8.3 % (2.0-8.0); NEUTROPHILS # 3.9 10^3/uL (1.5-8.5); NEUTROPHILS % 68.5 % (36.0-66.0); PLATELET COUNT, AUTOMATED 265 10^3/uL (150-450); RED BLOOD COUNT 2.25 10^6/uL (4.00-5.40); WHITE BLOOD COUNT 5.7 10^3/uL (4.0-10.0)
[2023-09-22 19:18] LABS: IRON (FE) 18 UG/DL (50-170); PERCENT SATURATION 4.7 % (13.2-45.0); TOTAL IRON BINDING CAPACITY 383 UG/DL (250-425)
[2023-09-22 19:19] LABS: FOLATE > 24.00 NG/ML (>5.4); VITAMIN B12 LEVEL 481 PG/ML (211-911)
[2023-09-22 19:20] LABS: FERRITIN 6.4 NG/ML (7.3-270.7)
[2023-09-22 19:21] LABS: HEMATOCRIT 19.6 % (36.0-47.0); HEMOGLOBIN 6.6 g/dl (12.0-15.5)
== END ==
LOC: M SFHCCLAY 13:54
PROVIDERS: ATTEND Nurse Practitioner Family
DX: D64.9 Anemia, unspecified (principal)

== ENCOUNTER → 2023-10-01 | Outpatient (REF) | payer MEDICARE, OTHER ==
[2023-10-01 18:46] LABS: BLOOD UREA NITROGEN 18 MG/DL (9-23); CALCIUM LEVEL 8.8 MG/DL (8.3-10.6); CARBON DIOXIDE LEVEL 27 MMOL/L (20-31); CHLORIDE LEVEL 104 MMOL/L (98-107); CREATININE FOR GFR 0.59 MG/DL (0.55-1.30); GLOMERULAR FILTRATION RATE > 60.0 (>32); GLUCOSE, FASTING 108 MG/DL (74-106); IRON (FE) 60 UG/DL (50-170); PERCENT SATURATION 18.5 % (13.2-45.0); POTASSIUM SERUM 3.3 MMOL/L (3.5-5.1); SODIUM LEVEL 135 MMOL/L (136-145); TOTAL IRON BINDING CAPACITY 324 UG/DL (250-425)
[2023-10-01 18:48] LABS: FERRITIN 24.7 NG/ML (7.3-270.7)
[2023-10-01 18:58] LABS: BASO % 0.6 % (0.0-1.0); EOS # 0.2 10^3/uL (0.0-0.5); EOS % 4.4 % (0.0-3.0); HEMATOCRIT 27.1 % (36.0-47.0); HEMOGLOBIN 9.2 g/dl (12.0-15.5); LYMPH # 1.3 10^3/uL (1.5-5.0); LYMPH % 25.3 % (24.0-44.0); MEAN CORPUSCULAR HEMOGLOBIN 30.4 pg (27.0-33.0); MEAN CORPUSCULAR HGB CONC 33.9 g/dl (32.0-36.5); MEAN CORPUSCULAR VOLUME 89.4 fl (80.0-96.0); MONO # 0.5 10^3/uL (0.0-0.8); MONO % 9.3 % (2.0-8.0); NEUTROPHILS # 3.2 10^3/uL (1.5-8.5); PLATELET COUNT, AUTOMATED 213 10^3/uL (150-450); RED BLOOD COUNT 3.03 10^6/uL (4.00-5.40); WHITE BLOOD COUNT 5.3 10^3/uL (4.0-10.0)
== END ==
LOC: M SFHCCLAY 14:03
PROVIDERS: ATTEND Nurse Practitioner Family
DX: D50.9 Iron deficiency anemia, unspecified (principal)

== ENCOUNTER → 2024-02-12 | Outpatient (REF) | payer MEDICARE, OTHER ==
[2024-02-12 18:03] LABS: BASO % 0.5 % (0.0-1.0); EOS # 0.2 10^3/uL (0.0-0.5); EOS % 3.4 % (0.0-3.0); HEMATOCRIT 26.7 % (36.0-47.0); LYMPH # 1.2 10^3/uL (1.5-5.0); LYMPH % 21.1 % (24.0-44.0); MEAN CORPUSCULAR HEMOGLOBIN 31.7 pg (27.0-33.0); MEAN CORPUSCULAR HGB CONC 33.7 g/dl (32.0-36.5); MONO # 0.7 10^3/uL (0.0-0.8); MONO % 11.1 % (2.0-8.0); NEUTROPHILS # 3.7 10^3/uL (1.5-8.5); NEUTROPHILS % 63.6 % (36.0-66.0); PLATELET COUNT, AUTOMATED 277 10^3/uL (150-450); RED BLOOD COUNT 2.84 10^6/uL (4.00-5.40); WHITE BLOOD COUNT 5.9 10^3/uL (4.0-10.0)
[2024-02-12 18:09] LABS: BLOOD UREA NITROGEN 22 MG/DL (9-23); CALCIUM LEVEL 9.6 MG/DL (8.3-10.6); CARBON DIOXIDE LEVEL 27 MMOL/L (20-31); CHLORIDE LEVEL 103 MMOL/L (98-107); GLOMERULAR FILTRATION RATE > 60.0 (>32); GLUCOSE, FASTING 68 MG/DL (74-106); IRON (FE) 29 UG/DL (50-170); PERCENT SATURATION 7.4 % (13.2-45.0); POTASSIUM SERUM 4.5 MMOL/L (3.5-5.1); SODIUM LEVEL 135 MMOL/L (136-145); TOTAL IRON BINDING CAPACITY 393 UG/DL (250-425)
[2024-02-12 18:12] LABS: FERRITIN 7.8 NG/ML (7.3-270.7)
== END ==
LOC: M SFHCCLAY 11:16
PROVIDERS: ATTEND Nurse Practitioner Family
DX: D50.9 Iron deficiency anemia, unspecified (principal)

== ENCOUNTER → 2024-06-23 | Outpatient (CLI) | payer MEDICARE, OTHER ==
[~2024-06-23] MED LIST changes: +ATOR-398 PO; -LIPI80TA PO
== END ==
LOC: M PLARAD 14:08
PROVIDERS: ATTEND Family Medicine
DX: F03.A0 Unspecified dementia, mild, without behavioral disturbance, psychotic disturbance, mood disturbance, and anxiety (principal); G31.9 Degenerative disease of nervous system, unspecified; R90.82 White matter disease, unspecified; M50.30 Other cervical disc degeneration, unspecified cervical region